=== PATIENT | female | born 1970 | race Hispanic/Latino ===

== ENCOUNTER 2024-10-06 22:47 | Emergency (ER) | payer SELFPAY ==
--- OUTSIDE RECORDS SUMMARY | 2024-10-06 22:52 | XMS REPORT | Continuity of Care Document ---
Author Name Unknown Address [address] [facility] [place] [address] [facility] Address [address] [facility] [place] [address] Care Team Providers Care 911 Telecommunicator Name Role Phone LUCIANO Ma [facility] Unavailable TORSTEN MALONE Attending Clinician Unavailable PETER ARCHIBALD Attending Clinician Unavailable Peter Archibald MD Attending Clinician [phone] Doctor Unassigned, Loyal Attending Clinician U ISRAEL Barraza Attending Clinician Unavaila MANUEL Salvador Attending Clinician Unavailable Manuel Lopez MD Attending Clinician [phone] Moody Arboleda MD Attending Clinician [phone] GIORGI BARRIOS Attending Clinician Unavaila Giorgi Gallegos Attending Clinician [phone] Merlene Clinton LVN Attending Clinician [phone] Isha Reyna Attending Clinician [phone] ANDRIY OCONNOR Attending Clinician Unavailable Andriy Kaur Attending Clinician [phone] Torsten Ross Attending Clinician [phone] DANG RODRÍGUEZ Attending Clinician Unavailable PAOLA CASEY Attending Clinician Unavailable Paola Casey DO Attending Clinician [phone] Jose PARKSSWLuna Attending Clinician [phone] Mina Loving MD Attending Clinician [phone] MINA LOVING Attending Clinician Unavailable Lien Haq DO Attending Clinician + [phone] Jose Antonio Trammell MD Attending Clinician [phone] JOSE ANTONIO TRAMMELL Attending Clinician Unavailable Macario SEAY, Alaina Walsh Attending Clinician UnavailPETER Kennedy Admitting Clinician Unavailable Peter Archibald MD Admitting Clinician [phone] MAUNEL LOPEZ Admitting Clinician Unavailable ANDRIY OCONNOR Admitting Clinician Unavailable PAOLA CASEY Admitting Clinician Unavailable Payers Payer Name Policy Type Policy Number Effective Date Expirati on Date Source MEDICAID ALI[place] PENDING PENDING 2021 00:00:00 Problems Condition Name Condition Details Condition Category Status Onset Date Resolution Date Last Treatment Date Treating Clinician Comments Source Renal stones Renal stones Disease Active 2021-05 00:00: 00 Overview: Formattin g of this note might be different from the original. 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 [facility] Allergies, Adverse Reactions, Alerts Allergy Name Allergy Type Status Severity Reaction(s) Onset Date Inactive Date Treating Clinician Comments Source Morphine Propensi ty to adverse reaction s Active Dizziness 06-17 00:00: 00 [facility] MORPHINE DRUG INGREDI Active Dizziness 06-17 00:00: 00 [facility] Social History Social Habit Start Date Stop Date Quantity Comments Source History of tobacco use Passive smoker [facility] Exposure to SARS-CoV-2 (event) 2022-05-23 00:00:00 2022-06-02 09:22:00 Not sure [facility] Tobacco use and exposure 2022-01-21 00:00:00 2022-01-21 00:00:00 Smokeless tobacco non-user [facility] Tobacco Comment 2022-01-21 00:00:00 2022-01-21 00:00:00 Non smoker [facility] Sex Ass[birth year] At 1970 00:00:00 1970 00:00:00 [facility] Smoking Status Start Date Stop Date Source Never smoked tobacco [facility] Medications Ordered Medication Name Filled Medication Name Start Date Stop Date Current Medication? Ordering Clinician Indication Dosage Frequency Signature (SIG) Comments Components Source lidocaine (XYLOCAINE) 2 % jelly URO-JET 11 mL 06-02 19:00: 00 06-02 17:46 :00 No [id number] 11mL [facility] lactated ringers IV infusion 1,000 mL 2021-05 15:30: 00 Yes 1000mL at 75 mL/hr, 1,000 mL, IV Infusion, CONTINUOUS , Starting on Francy 05/08/22 at 0930, Until Discontinu ed, Routine, PACU [facility] HYDROcodone -acetaminop hen (NORCO 5) 5-325 mg tablet 1 tablet 2021-05 15:30: 00 05-08 16:00 :00 No 1{tbl} 1 tablet, Oral, ONCE, 1 dose, On Francy 05/08/22 at 0930, Routine, PACU [facility] HYDROmorphO ne (DILAUDID) injection 0.2 mg 2021-05 15:18: 54 Yes .2mg 0.2 mg, Slow IV Push, Q5MIN PRN, 10 doses, Starting on Francy 05/08/22 at 0918, Until Discontinu ed, Routine, Pain (scale 7-10), PACU
Us e approved by (Faculty): PACU USE -ANESTHESI A SERVICE-HY DROMORPHON E INJECTIONS [facility] FENTanyl PF (SUBLIMAZE (PF)) injection 25 mcg 2021-05 15:18: 54 Yes 25ug 25 mcg, Slow IV Push, Q5MIN PRN, 4 doses, Starting on Francy 05/08/22 at 0918, Until Discontinu ed, Routine, Pain (scale 4-6), PACU [facility] ondansetron (ZOFRAN (PF)) injection 4 mg 2021-05 15:18: 54 05-08 16:51 :00 No 4mg 4 mg, Slow IV Push, PRN, 1 dose, Starting on Francy 05/08/22 at 0918, Until Discontinu ed, Routine, Nausea and Vomiting (N/V), PACU [facility] iohexoL (OMNIPAQUE 300-50 mL)) injection 2021-05 15:00: 00 05-08 15:39 :04 No PRN, Starting on Francy 05/08/22 at 0900, Until Francy 05/08/22 at 0939, Routine, Intra-op [facility] acetaminoph en 325 mg tablet 2021-05 00:00: 00 06-02 00:00 :00 No [id number] 650mg Take 2 tablets by mouth every 6 (six) hours as needed for Pain (scale 1-3) or Alternate with ibuprofen for pain scale 4-6. [facility] ibuprofen 600 mg tablet 2021-05 00:00: 00 06-02 00:00 :00 No [id number] 600mg Take 1 tablet by mouth every 6 (six) hours as needed for Pain (scale 4-6). [facility] sulfamethox azole-trime thoprim (BACTRIM DS) 800-160 mg per tablet 2021-05 00:00: 00 06-02 00:00 :00 No [id number] 1{tbl} Take 1 tablet by mouth 2 (two) times daily. [facility] tamsulosin 0.4 mg 24 hr capsule 2021-05 00:00: 00 06-02 00:00 :00 No [id number] .4mg Take 1 capsule by mouth daily. [facility] tc 99m-mertiat cholo (TECHNESCAN MAG3) injection 9.4 millicurie 02-14 16:30: 00 02-14 16:20 :00 No [id number] 9.4mCi 9.4 millicurie , Intravenou s, ONCE, 1 dose, On Thu02/14/22 at 1130, Routine [facility] sennosides 8.6 mg tablet 01-25 00:00: 00 02-25 04:59 :00 No [id number] 8.6mg Take 1 tablet by mouth daily for 30 days. [facility] ondansetron 4 mg disintegrat ing tablet 01-24 00:00: 06-02 00:00 :00 No [id number] 4mg Take 1 tablet by mouth every 8 (eight) hours as needed for Nausea and Vomiting (N/V) for up to 30 doses. [facility] acetaminoph en 325 mg tablet 01-24 00:00: 00 05-08 00:00 :00 No [id number] 650mg Take 2 tablets by mouth every 6 (six) hours. [facility] sulfamethox azole-trime thoprim (BACTRIM DS) 800-160 mg per tablet 01-24 00:00: 00 02-06 04:59 :00 No [id number] 1{tbl} Take 1 tablet by mouth 2 (two) times daily for 12 days. [facility] gabapentin 300 mg capsule 01-24 00:00: 00 02-04 04:59 :00 No [id number] 300mg Take 1 capsule by mouth 3 (three) times daily for 10 days. [facility] Dose Unknown 01-07 00:00: 00 No TAKE 1 TABLET DAILY. 01-07 00:00: 00 No TAKE 1 TABLET DAILY. 12-31 00:00: 00 No 137 TAKE 1 TABLET DAILY. 12-31 00:00: 00 No 137 Dose Unknown 12-23 00:00: 00 No Dose Unknown 12-23 00:00: 00 No Dose Unknown 12-23 00:00: 00 No Dose Unknown 12-23 00:00: 00 No Dose Unknown 12-23 00:00: 00 No TAKE 1 TABLET DAILY. 12-23 00:00: 00 No 300 Dose Unknown 12-23 00:00: 00 No Dose Unknown 12-23 00:00: 00 No Dose Unknown 12-23 00:00: 00 No Dose Unknown 12-23 00:00: 00 No Dose Unknown 12-23 00:00: 00 No TAKE 1 TABLET DAILY. 12-23 00:00: 00 No 300 Actos 45 mg tablet 10-22 00:00: 00 No 1mg levothyroxi ne 137 mcg tablet 10-22 00:00: 00 No 1mcg Lovaza 1 gram capsule 10-22 00:00: 00 No 2gram Actos 45 mg tablet 10-22 00:00: 00 No 1mg levothyroxi ne 137 mcg tablet 10-22 00:00: 00 No 1mcg Lovaza 1 gram capsule 10-22 00:00: 00 No 2gram Actos 30 mg tablet 10-18 00:00: 00 No 1mg lisinopril 5 mg tablet 10-18 00:00: 00 No 1mg metformin ER 1,000 mg 24 hr tablet,exte nded release 10-18 00:00: 00 No 1mg glipizide ER 10 mg tablet, extended release 24 hr 10-18 00:00: 00 No 1mg atorvastati n 80 mg tablet 10-18 00:00: 00 No 1mg levothyroxi ne 125 mcg tablet 10-18 00:00: 00 No 1mcg Actos 30 mg tablet 10-18 00:00: 00 No 1mg lisinopril 5 mg tablet 10-18 00:00: 00 No 1mg metformin ER 1,000 mg 24 hr tablet,exte nded release 10-18 00:00: 00 No 1mg glipizide ER 10 mg tablet, extended release 24 hr 10-18 00:00: 00 No 1mg atorvastati n 80 mg tablet 2022-0 5-27 00:00: 00 No 1mg levothyroxi ne 125 mcg tablet 2022-0 5-27 00:00: 00 No 1mcg Dose Unknown 2022-0 4-06 00:00: 00 No Dose Unknown 2022-0 4-06 00:00: 00 No Dose Unknown 2022-0 4-06 00:00: 00 No Dose Unknown 2022-0 4-06 00:00: 00 No Dose Unknown 2022-0 4-06 00:00: 00 No Dose Unknown 2022-0 4-06 00:00: 00 No Dose Unknown 2022-0 4-06 00:00: 00 No Dose Unknown 2022-0 4-06 00:00: 00 No Dose Unknown 2022-0 4-06 00:00: 00 No Dose Unknown 2022-0 4-06 00:00: 00 No Dose Unknown 2022-0 4-06 00:00: 00 No Dose Unknown 2022-0 4-06 00:00: 00 No Dose Unknown 2022-0 4-06 00:00: 00 No Dose Unknown 2022-0 4-06 00:00: 00 No Dose Unknown 2022-0 4-05 00:00: 00 No Dose Unknown 2022-0 4-05 00:00: 00 No Dose Unknown 2022-0 4-05 00:00: 00 No Dose Unknown 2022-0 4-05 00:00: 00 No Dose Unknown 2022-0 4-05 00:00: 00 No Dose Unknown 2022-0 4-05 00:00: 00 No Dose Unknown 2022-0 4-05 00:00: 00 No Dose Unknown 2022-0 4-05 00:00: 00 No Dose Unknown 2022-0 4-05 00:00: 00 No Dose Unknown 2022-0 4-05 00:00: 00 No Dose Unknown 2022-0 4-05 00:00: 00 No Dose Unknown 2022-0 4-05 00:00: 00 No Dose Unknown 2022-0 4-05 00:00: 00 No Dose Unknown 2022-0 4-05 00:00: 00 No levothyroxi ne 125 mcg tablet 2022-0 2-02 00:00: 00 No 1mcg levothyroxi ne 125 mcg tablet 2-0 2-02 00:00: 00 No 1mcg fenofibrate nanocrystal lized 145 mg tablet 2020-05 00:00: 00 No 1mg lisinopril 2.5 mg tablet 2020-05 00:00: 00 No 1mg levothyroxi ne 125 mcg tablet 2020-05 00:00: 00 No 1mcg fenofibrate nanocrystal lized 145 mg tablet 2020-05 00:00: 00 No 1mg lisinopril 2.5 mg tablet 2020-05 00:00: 00 No 1mg levothyroxi ne 125 mcg tablet 2020-05 00:00: 00 No 1mcg Actos 30 mg tablet 2020-05 00:00: 00 No 1mg allopurinol 300 mg tablet 2020-05 00:00: 00 No 1mg metformin ER 1,000 mg 24 hr tablet,exte nded release (gastric) 2020-05 00:00: 00 No 1mg Actos 30 mg tablet 2020-05 00:00: 00 No 1mg allopurinol 300 mg tablet 2020-05 00:00: 00 No 1mg metformin ER 1,000 mg 24 hr tablet,exte nded release (gastric) 2020-05 00:00: 00 No 1mg glipizide ER 10 mg tablet, extended release 24 hr 2020-05 00:00: 00 No 1mg atorvastati n 40 mg tablet 2020-05 00:00: 00 No 2mg glipizide ER 10 mg tablet, extended release 24 hr 2020-05 00:00: 00 No 1mg levothyroxi ne 112 mcg tablet 2020-05 00:00: 00 No 1mcg Macrobid 100 mg capsule 2020-05 00:00: 00 No 1mg atorvastati n 40 mg tablet 2020-05 00:00: 00 No 2mg levothyroxi ne 112 mcg tablet 2020-05 00:00: 00 No 1mcg Macrobid 100 mg capsule 2020-05 00:00: 00 No 1mg bromphenira mine-pseudo ephedrine-D M (BROMFED DM) 2-30-10 mg/5 mL syrup 7- 00:00: 00 Yes [id number] 5mL Take 5 mL by mouth 4 (four) times daily as needed for Congestion /Allergies . [facility] tamsulosin 0.4 mg capsule 11-28 00:00: 00 No 1mg tamsulosin 0.4 mg capsule 11-28 00:00: 00 No 1mg cephALEXin (KEFLEX) 500 mg capsule - 00:00: 00 01-24 00:00 :00 No [id number] 500mg Take 1 capsule by mouth 4 (four) times daily. [facility] ibuprofen 600 mg tablet 08-07 00:00: 00 01-24 00:00 :00 No [id number] 600mg Take 1 tablet by mouth every 8 (eight) hours as needed for Pain (scale 4-6). [facility] allopurinol 300 mg tablet 07-06 00:00: 00 No 1mg Actos 30 mg tablet 07-06 00:00: 00 No 1mg metformin ER 1,000 mg 24 hr tablet,exte nded release (gastric) 07-06 00:00: 00 No 1mg glipizide ER 10 mg tablet, extended release 24 hr 07-06 00:00: 00 No 1mg ibuprofen 800 mg tablet - 00:00: 00 No 1mg atorvastati n 40 mg tablet - 00:00: 00 No 2mg levothyroxi ne 112 mcg tablet - 00:00: 00 No 1mcg Macrobid 100 mg capsule - 00:00: 00 No 1mg allopurinol 300 mg tablet - 00:00: 00 No 1mg Actos 30 mg tablet - 00:00: 00 No 1mg metformin ER 1,000 mg 24 hr tablet,exte nded release (gastric) - 00:00: 00 No 1mg glipizide ER 10 mg tablet, extended release 24 hr 07-06 00:00: 00 No 1mg ibuprofen 800 mg tablet 07-06 00:00: 00 No 1mg atorvastati n 40 mg tablet 07-06 00:00: 00 No 2mg levothyroxi ne 112 mcg tablet 07-06 00:00: 00 No 1mcg Macrobid 100 mg capsule 07-06 00:00: 00 No 1mg ibuprofen 600 mg tablet 06-18 00:00: 00 01-24 00:00 :00 No [id number] 600mg Take 1 tablet by mouth every 6 (six) hours as needed for Pain (scale 4-6). [facility] Augmentin 875 mg-125 mg tablet 2019-05 00:00: 00 No 1mg Augmentin 875 mg-125 mg tablet 2019-05 00:00: 00 No 1mg Actos 15 mg tablet 2019-05 00:00: 00 No 1mg allopurinol 300 mg tablet 2019-05 00:00: 00 No 1mg Tricor 48 mg tablet 2019-05 00:00: 00 No 1mg Bactrim DS 800 mg-160 mg tablet 2019-05 00:00: 00 No 1mg glipizide ER 10 mg tablet, extended release 24 hr 2019-05 00:00: 00 No 1mg metformin ER 1,000 mg 24 hr tablet,exte nded release (gastric) 2019-05 00:00: 00 No 1mg atorvastati n 40 mg tablet 2019-05 00:00: 00 No 2mg Actos 15 mg tablet 2019-05 00:00: 00 No 1mg allopurinol 300 mg tablet 2019-05 00:00: 00 No 1mg Tricor 48 mg tablet 2019-05 00:00: 00 No 1mg Bactrim DS 800 mg-160 mg tablet 2019-05 00:00: 00 No 1mg glipizide ER 10 mg tablet, extended release 24 hr 2019-05 00:00: 00 No 1mg metformin ER 1,000 mg 24 hr tablet,exte nded release (gastric) 2019-05 00:00: 00 No 1mg atorvastati n 40 mg tablet 2019-05 00:00: 00 No 2mg levothyroxi ne 112 mcg tablet 01-11 00:00: 00 No 1mcg levothyroxi ne 112 mcg tablet 01-11 00:00: 00 No 1mcg atorvastati n 40 mg tablet 01-06 00:00: 00 No 1mg allopurinol 300 mg tablet 15 00:00: 00 No 1mg Actos 15 mg tablet 15 00:00: 00 No 1mg glipizide ER 10 mg tablet, extended release 24 hr 01-06 00:00: 00 No 1mg metformin ER 1,000 mg 24 hr tablet,exte nded release (gastric) 01-06 00:00: 00 No 1mg hydroxyzine HCl 25 mg tablet 15 00:00: 00 No 12mg levothyroxi ne 100 mcg tablet 15 00:00: 00 No 1mcg Macrobid 100 mg capsule 15 00:00: 00 No 1mg atorvastati n 40 mg tablet 01-06 00:00: 00 No 1mg allopurinol 300 mg tablet 15 00:00: 00 No 1mg Actos 15 mg tablet 15 00:00: 00 No 1mg glipizide ER 10 mg tablet, extended release 24 hr 15 00:00: 00 No 1mg metformin ER 1,000 mg 24 hr tablet,exte nded release (gastric) 15 00:00: 00 No 1mg hydroxyzine HCl 25 mg tablet 15 00:00: 00 No 12mg levothyroxi ne 100 mcg tablet 15 00:00: 00 No 1mcg Macrobid 100 mg capsule 15 00:00: 00 No 1mg hydroxyzine HCl 50 mg tablet 5-12 00:00: 00 No 1mg hydroxyzine HCl 50 mg tablet 10-03 00:00: 00 No 1mg glipizide ER 10 mg tablet, extended release 24 hr 406 00:00: 00 No 1mg glipizide ER 10 mg tablet, extended release 24 hr 406 00:00: 00 No 1mg hydroxyzine HCl 50 mg tablet 4- 00:00: 00 No 1mg hydroxyzine HCl 50 mg tablet 08-23 00:00: 00 No 1mg atorvastati n 40 mg tablet 2- 00:00: 00 No 1mg atorvastati n 40 mg tablet 07-20 00:00: 00 No 1mg allopurinol 300 mg tablet 07-13 00:00: 00 No 1mg metformin ER 1,000 mg 24 hr tablet,exte nded release (gastric) - 00:00: 00 No 1mg glipizide ER 5 mg tablet, extended release 24 hr 07-13 00:00: 00 No 1mg simvastatin 40 mg tablet 07-13 00:00: 00 No 1mg levothyroxi ne 100 mcg tablet 07-13 00:00: 00 No 1mcg allopurinol 300 mg tablet 07-13 00:00: 00 No 1mg metformin ER 1,000 mg 24 hr tablet,exte nded release (gastric) 07-13 00:00: 00 No 1mg glipizide ER 5 mg tablet, extended release 24 hr 07-13 00:00: 00 No 1mg simvastatin 40 mg tablet 07-13 00:00: 00 No 1mg levothyroxi ne 100 mcg tablet 07-13 00:00: 00 No 1mcg levothyroxi ne 100 mcg tablet 10-09 00:00: 00 No 1mcg levothyroxi ne 100 mcg tablet 10-09 00:00: 00 No 1mcg lisinopril 2.5 mg tablet 10-08 00:00: 00 No 1mg allopurinol 300 mg tablet 10-08 00:00: 00 No 1mg glipizide 5 mg tablet 10-08 00:00: 00 No 1mg metformin 500 mg tablet 10-08 00:00: 00 No 1mg simvastatin 40 mg tablet 10-08 00:00: 00 No 1mg gabapentin 100 mg capsule 10-08 00:00: 00 No 1mg lisinopril 2.5 mg tablet 10-08 00:00: 00 No 1mg allopurinol 300 mg tablet 10-08 00:00: 00 No 1mg glipizide 5 mg tablet 10-08 00:00: 00 No 1mg metformin 500 mg tablet 10-08 00:00: 00 No 1mg simvastatin 40 mg tablet 10-08 00:00: 00 No 1mg gabapentin 100 mg capsule 10-08 00:00: 00 No 1mg levothyroxi ne 125 mcg tablet 07-14 00:00: 00 No 1mcg lisinopril 2.5 mg tablet 07-14 00:00: 00 No 1mg glipizide 5 mg tablet 07-14 00:00: 00 No 1mg metformin 500 mg tablet 07-14 00:00: 00 No 1mg simvastatin 40 mg tablet 07-14 00:00: 00 No 1mg levothyroxi ne 125 mcg tablet 07-14 00:00: 00 No 1mcg lisinopril 2.5 mg tablet 07-14 00:00: 00 No 1mg glipizide 5 mg tablet 07-14 00:00: 00 No 1mg metformin 500 mg tablet 07-14 00:00: 00 No 1mg simvastatin 40 mg tablet 07-14 00:00: 00 No 1mg allopurinol 300 mg tablet 07-13 00:00: 00 No 1mg levothyroxi ne 125 mcg tablet 07-13 00:00: 00 No 1mcg allopurinol 300 mg tablet 07-13 00:00: 00 No 1mg levothyroxi ne 125 mcg tablet 07-13 00:00: 00 No 1mcg nystatin (MYCOSTATIN ) 100,000 unit/gram ointment 02-13 00:00: 00 Yes Apply to affected area(s) 3 (three) times daily. [facility] Vital Signs Vital Name Observation Time Observation Value Comments S ron Systolic blood pressure 2022-06-02 15:37:00 116 mm[Hg] [facility] Diastolic blood pressure 2022-06-02 15:37:00 76 mm[Hg] [facility] Heart rate 2022-06-02 15:37:00 68 /min [facility] Body temperature 2022-06-02 15:37:00 36.67 [place] [facility] Respiratory rate 2022-06-02 15:37:00 16 /min [facility] Body height 2022-06-02 15:37:00 160 cm [facility] Body weight 2022-06-02 15:37:00 60.328 kg [facility] BMI 2022-06-02 15:37:00 23.56 kg/m2 [facility] Oxygen saturation in Arterial blood by Pulse oximetry 2022-06-02 15:37:00 99 /min [facility] Systolic blood pressure 2022-05-08 16:30:00 124 mm[Hg] [facility] Diastolic blood pressure 2022-05-08 16:30:00 97 mm[Hg] [facility] Respiratory rate 2022-05-08 16:30:00 14 /min [facility] Oxygen saturation in Arterial blood by Pulse oximetry 2022-05-08 16:30:00 98 /min [facility] Body temperature 2022-05-08 15:30:00 36.06 [place] [facility] Heart rate 2022-05-08 11:24:00 73 /min [facility] Body height 2022-05-08 11:24:00 160 cm [facility] Body weight 2022-05-08 11:24:00 61.8 kg [facility] BMI 2022-05-08 11:24:00 24.13 kg/m2 [facility] Systolic blood pressure 2022-05-08 11:24:00 125 mm[Hg] [facility] Diastolic blood pressure 2022-05-08 11:24:00 73 mm[Hg] [facility] Heart rate 2022-05-08 11:24:00 73 /min [facility] Body temperature 2022-05-08 11:24:00 36.28 [place] [facility] Respiratory rate 2022-05-08 11:24:00 18 /min [facility] Body height 2022-05-08 11:24:00 160 cm [facility] Body weight 2022-05-08 11:24:00 61.8 kg [facility] BMI 2022-05-08 11:24:00 24.13 kg/m2 [facility] Oxygen saturation in Arterial blood by Pulse oximetry 2022-05-08 11:24:00 97 /min [facility] Systolic blood pressure 2022-04-21 21:00:00 125 mm[Hg] [facility] Diastolic blood pressure 2022-04-21 21:00:00 88 mm[Hg] [facility] Heart rate 2022-04-21 21:00:00 97 /min [facility] Respiratory rate 2022-04-21 21:00:00 17 /min [facility] Oxygen saturation in Arterial blood by Pulse oximetry 2022-04-21 21:00:00 100 /min [facility] Body temperature 2022-04-21 17:00:00 36.56 [place] [facility] Body weight 2022-04-21 17:00:00 58.968 kg [facility] BMI 2022-04-21 17:00:00 21.63 kg/m2 [facility] Systolic blood pressure 2022-03-31 19:00:00 121 mm[Hg] [facility] Diastolic blood pressure 2022-03-31 19:00:00 74 mm[Hg] [facility] Heart rate 2022-03-31 19:00:00 74 /min [facility] Body temperature 2022-03-31 19:00:00 36.67 [place] [facility] Respiratory rate 2022-03-31 19:00:00 18 /min [facility] Oxygen saturation in Arterial blood by Pulse oximetry 2022-03-31 19:00:00 98 /min [facility] Body weight 2022-03-31 17:14:00 58.968 kg [facility] BMI 2022-03-31 17:14:00 21.63 kg/m2 [facility] BP Systolic 2022-01-31 11:20:00 129 mm[Hg] BP Diastolic 2022-01-31 11:20:00 80 mm[Hg] Weight Measured 2022-01-31 11:20:00 130.40 pounds Height Measured 2022-01-31 11:20:00 62.50 inches Body Temperature 2022-01-31 11:20:00 98.20 degrees Heart Rate 2022-01-31 11:20:00 98.20 /min Respiratory Rate 2022-01-31 11:20:00 Systolic blood pressure 2022-01-25 13:00:00 116 mm[Hg] [facility] Diastolic blood pressure 2022-01-25 13:00:00 70 mm[Hg] [facility] Heart rate 2022-01-25 13:00:00 55 /min [facility] Body temperature 2022-01-25 13:00:00 36.44 [place] [facility] Respiratory rate 2022-01-25 13:00:00 20 /min [facility] Oxygen saturation in Arterial blood by Pulse oximetry 2022-01-25 13:00:00 98 /min [facility] Body height 2022-01-23 18:31:00 165.1 cm [facility] Body weight 2022-01-23 18:31:00 58.968 kg [facility] BMI 2022-01-23 18:31:00 21.63 kg/m2 [facility] BP Systolic 2021-12-23 08:27:00 125 mm[Hg] BP Diastolic 2021-12-23 08:27:00 82 mm[Hg] Weight Measured 2021-12-23 08:27:00 131.00 pounds Height Measured 2021-12-23 08:27:00 62.50 inches Body Temperature 2021-12-23 08:27:00 98.00 degrees Heart Rate 2021-12-23 08:27:00 74.00 /min Respiratory Rate 2021-12-23 08:27:00 16.00 /min BP Systolic 2021-10-18 11:02:00 143 mm[Hg] BP Diastolic 2021-10-18 11:02:00 91 mm[Hg] Weight Measured 2021-10-18 11:02:00 132.20 pounds Height Measured 2021-10-18 11:02:00 62.50 inches Body Temperature 2021-10-18 11:02:00 98.40 degrees Heart Rate 2021-10-18 11:02:00 72.00 /min Respiratory Rate 2021-10-18 11:02:00 16.00 /min BP Systolic 2021-03-26 09:12:00 116 mm[Hg] BP Diastolic 2021-03-26 09:12:00 74 mm[Hg] Weight Measured 2021-03-26 09:12:00 137.00 pounds Height Measured 2021-03-26 09:12:00 62.50 inches Body Temperature 2021-03-26 09:12:00 98.40 degrees Heart Rate 2021-03-26 09:12:00 80.00 /min Respiratory Rate 2021-03-26 09:12:00 21.00 /min BP Systolic 2020-11-28 11:49:00 143 mm[Hg] BP Diastolic 2020-11-28 11:49:00 85 mm[Hg] Weight Measured 2020-11-28 11:49:00 137.80 pounds Height Measured 2020-11-28 11:49:00 62.50 inches Body Temperature 2020-11-28 11:49:00 98.30 degrees Heart Rate 2020-11-28 11:49:00 86.00 /min Respiratory Rate 2020-11-28 11:49:00 16.00 /min BP Systolic 2020-07-06 11:09:00 113 mm[Hg] BP Diastolic 2020-07-06 11:09:00 72 mm[Hg] Weight Measured 2020-07-06 11:09:00 140.20 pounds Height Measured 2020-07-06 11:09:00 62.50 inches Body Temperature 2020-07-06 11:09:00 98.70 degrees Heart Rate 2020-07-06 11:09:00 85.00 /min Respiratory Rate 2020-07-06 11:09:00 18.00 /min BP Systolic 2020-04-17 11:28:00 130 mm[Hg] BP Diastolic 2020-04-17 11:28:00 84 mm[Hg] Weight Measured 2020-04-17 11:28:00 140.00 pounds Height Measured 2020-04-17 11:28:00 62.50 inches Body Temperature 2020-04-17 11:28:00 98.50 degrees Heart Rate 2020-04-17 11:28:00 88.00 /min Respiratory Rate 2020-04-17 11:28:00 17.00 /min BP Systolic 2020-01-07 10:26:00 118 mm[Hg] BP Diastolic 2020-01-07 10:26:00 73 mm[Hg] Weight Measured 2020-01-07 10:26:00 140.00 pounds Height Measured 2020-01-07 10:26:00 62.50 inches Body Temperature 2020-01-07 10:26:00 96.90 degrees Heart Rate 2020-01-07 10:26:00 82.00 /min Respiratory Rate 2020-01-07 10:26:00 16.00 /min BP Systolic 2019-10-04 14:54:00 117 mm[Hg] BP Diastolic 2019-10-04 14:54:00 81 mm[Hg] Weight Measured 2019-10-04 14:54:00 140.00 pounds Height Measured 2019-10-04 14:54:00 62.50 inches Body Temperature 2019-10-04 14:54:00 98.10 degrees Heart Rate 2019-10-04 14:54:00 90.00 /min Respiratory Rate 2019-10-04 14:54:00 16.00 /min BP Systolic 2019-08-24 10:18:00 118 mm[Hg] BP Diastolic 2019-08-24 10:18:00 86 mm[Hg] Weight Measured 2019-08-24 10:18:00 141.40 pounds Height Measured 2019-08-24 10:18:00 62.50 inches Body Temperature 2019-08-24 10:18:00 98.10 degrees Heart Rate 2019-08-24 10:18:00 77.00 /min Respiratory Rate 2019-08-24 10:18:00 16.00 /min BP Systolic 2019-07-13 10:07:00 115 mm[Hg] BP Diastolic 2019-07-13 10:07:00 80 mm[Hg] Weight Measured 2019-07-13 10:07:00 141.60 pounds Height Measured 2019-07-13 10:07:00 62.50 inches Body Temperature 2019-07-13 10:07:00 98.00 degrees Heart Rate 2019-07-13 10:07:00 81.00 /min Respiratory Rate 2019-07-13 10:07:00 17.00 /min Procedures Procedure Date / Time Performed Performing Clinician Source DISCLOSURE AND CONSENT, MEDICAL AND SURGICAL PROCEDURES 2022-06-02 06:01:00 Doctor Unassigned, Loyal [facility] [place] TIME OR (NON-REPORTABLE) 2022-05-08 15:14:00 David Wyatt [facility] TIME OR (NON-REPORTABLE) 2022-05-08 15:14:00 David Wyatt [facility] URINE CULTURE 2022-05-08 14:40:00 Peter Archibald [facility] URETEROSCOPIC STONE MANIPULATION 2022-05-08 13:05:00 Peter Archibald [facility] CONSENT/REFUSAL FOR DIAGNOSIS AND TREATMENT 2022-05-08 11:11:41 Doctor Unassigned, [facility] CONSENT/REFUSAL FOR DIAGNOSIS AND TREATMENT 2022-05-08 11:11:41 Doctor Unassigned, [facility]oyal [facility] ASSIGNMENT OF BENEFITS 2022-05-08 11:10:51 Docto r Unassigned, Loyal [facility] ASSIGNMENT OF BENEFITS 2022-05-08 11:10:51 Docto r Unassigned, Loyal [facility] CT ABDOMEN PELVIS WO CONTRAST 2022-04-21 19:20:00 Manuel Lopez [facility] COMP. METABOLIC PANEL (07505) 2022-04-21 18:10:00 Manuel Lopez [facility] CBC WITH DIFF 2022-04-21 18:10:00 Manuel Lopez Uni [facility] CONSENT/REFUSAL FOR DIAGNOSIS AND TREATMENT 2022-04-21 17:00:43 Doctor Unassigned, [facility] EMERGENCY SERVICES AGREEMENTS AND AUTHORIZATIONS 2022-04-21 06:01:00 Doctor Unassigned, [facility] EMERGENCY SERVICES AGREEMENTS AND AUTHORIZATIONS 2022-04-21 06:01:00 Doctor Unassigned, [facility] CONSENT/REFUSAL FOR DIAGNOSIS AND TREATMENT 2022-03-31 17:13:14 Doctor Unassigned, [facility] NM RENAL FLOW FUNCTION WITHOUT PHARMACOLOGICAL INTERVENTION 2022-02-14 17:10:00 Bishnu James [facility] POCT GLUCOSE (AUTOMATED) 2022-01-25 01:31:00 [facility]SE ([facility]OMATED) 2022-01-24 22:17:00 [facility] URINE CULTURE 2022-01-24 13:55:00 Valarie Goldman [facility] POCT GLUCOSE (AUTOMATED) 2022-01-24 10:46:00 [facility] POCT GLUCOSE (AUTOMATED) 2022-01-24 04:34:00 [facility] POCT GLUCOSE (AUTOMATED) 2022-01-23 22:44:00 [facility] BASIC METABOLIC PANEL (NA, K, CL, CO2, GLUCOSE, BUN, CREATININE, CA) 2022-01-23 16:14:00 Bishnu James [facility] CBC WITH DIFF 2022-01-23 16:13:00 Bishnu James [facility] POCT GLUCOSE (AUTOMATED) 2022-01-23 13:10:00 [facility] CBC WITH DIFF 2022-01-22 20:47:00 David Wyatt [facility] PROTHROMBIN TIME / INR 2022-01-22 05:42:00 Kolby Arboleda [facility] COVID-19 (ID NOW RAPID TESTING) 2022-01-21 23:37:00 Isha Mohamud [facility] LAB ONLY COVID INTERPRETATION 2022-01-21 23:37:00 Isha Mohamud [facility] URINE CULTURE 2022-01-21 21:48:00 Isha Mohamud [facility] CT ABDOMEN PELVIS WO CONTRAST 2022-01-21 20:48:34 Isha Mohamud [facility] URINALYSIS 2022-01-21 20:37:00 Isha Mohamud [facility] HB ECG ROUTINE & RHYTHM STRIP 2022-01-21 20:29:33 Isha Mohamud [facility] CBC WITH DIFF 2022-01-21 20:26:00 Isha Mohmaud [facility] COMP. METABOLIC PANEL (15170) 2022-01-21 20:26:00 Isha Mohamud [facility] CONSENT/REFUSAL FOR DIAGNOSIS AND TREATMENT 2022-01-21 20:03:01 Doctor Unassigned, [facility] HOSPITAL ADMISSION 2022-01-21 05:01:00 Doctor Un assigned, [facility] Plan of Care Planned Activity Planned Date Details Comments Source Goal Plan of Care Note [code = 47280-7] Goal Plan of Care Note [code = 88019-7] Goal Plan of Care Note [code = 89237-3] Goal Plan of Care Note [code = 88622-5] Goal Plan of Care Note [code = 60077-5] Goal Plan of Care Note [code = 14296-5] Goal Plan of Care Note [code = 54990-1] Goal Plan of Care Note [code = 40707-2] Goal Plan of Care Note [code = 41434-4] Goal Plan of Care Note [code = 72946-4] Goal Plan of Care Note [code = 91784-8] Goal Plan of Care Note [code = 72138-9] Goal Plan of Care Note [code = 36549-9] Goal Plan of Care Note [code = 32759-2] Goal Plan of Care Note [code = 53794-8] Goal Plan of Care Note [code = 49706-4] Goal Plan of Care Note [code = 23724-1] Goal Plan of Care Note [code = 85862-7] Goal Plan of Care Note [code = 80013-7] Goal Plan of Care Note [code = 98446-8] Goal Plan of Care Note [code = 02313-9] Goal Plan of Care Note [code = 14957-9] Goal Plan of Care Note [code = 68351-9] Goal Plan of Care Note [code = 17459-5] Goal Plan of Care Note [code = 88018-1] Goal Plan of Care Note [code = 15591-8] Goal Plan of Care Note [code = 62238-8] Goal Plan of Care Note [code = 89340-5] Goal Plan of Care Note [code = 54274-9] Goal Plan of Care Note [code = 75598-6] Goal Plan of Care Note [code = 19636-9] Goal Plan of Care Note [code = 01814-1] Goal Plan of Care Note [code = 15563-4] Goal Plan of Care Note [code = 32138-7] Goal Plan of Care Note [code = 73075-7] Goal Plan of Care Note [code = 68289-5] Goal Plan of Care Note [code = 84729-1] Goal Plan of Care Note [code = 78290-7] Goal Plan of Care Note [code = 22069-5] Goal Plan of Care Note [code = 02925-8] Goal Plan of Care Note [code = 77374-8] Encounters Start Date/Time End Date/Time Encounter Type Admission Type Attending [facility] Facility Care Department Encounter ID Source 2021-06-17 18:05:41 Emergency TORSTEN MALONE [facility] [id number] [facility] 2024-08-10 09:19:59 2024-08-10 09:19:59 Outpatient SFA SFA [id number] Luciano Francesca Jason 2024-07-06 10:03:26 2024-07-06 10:03:26 Outpatient SFA SFA [id number] Luciano Francesca Jason 2024-04-25 10:30:21 2024-04-25 10:30:21 Outpatient SFA SFA [id number] Luciano Francesca Jason 2024-03-30 09:30:56 2024-03-30 09:30:56 Outpatient SFA SFA [id number] Luciano Francesca Jason 2024-03-01 10:23:47 2024-03-01 10:23:47 Outpatient SFA SFA [id number] Luciano Francesca Jason 2024-01-26 09:51:44 2024-01-26 09:51:44 Outpatient SFA SFA [id number] Luciano Gomez 2023-12-30 14:36:56 2023-12-30 14:36:56 Outpatient SFA SFA [id number] Luciano Gomez 2023-10-29 09:11:39 2023-10-29 09:11:39 Outpatient SFA SFA [id number] Luciano Gomez 2023-09-23 10:28:07 2023-09-23 10:28:07 Outpatient SFA SFA [id number] Luciano Gomez 2023-08-24 17:34:55 2023-08-24 17:34:55 Outpatient SFA SFA [id number] Luciano Gomez 2023-07-07 15:39:19 2023-07-07 15:39:19 Outpatient SFA SFA [id number] Luciano Gomez 2023-06-22 08:26:01 2023-06-22 08:26:01 Outpatient SFA SFA [id number] Luciano Gomez 2023-05-04 09:36:51 2023-05-04 09:36:51 Outpatient SFA SFA [id number] Luciano Gomez 2023-04-01 14:47:48 2023-04-01 14:47:48 Outpatient SFA SFA [id number] Luciano Gomez 2023-02-24 11:02:11 2023-02-24 11:02:11 Outpatient SFA SFA [id number] Luciano Gomez 2023-01-21 15:38:12 2023-01-21 15:38:12 Outpatient SFA SFA [id number] Luciano Ma Jason 2022-07-14 00:00:00 2022-07-14 00:00:00 Outpatient R PETER ARCHIBALD [facility] [id number] [facility] 2022-06-02 10:15:00 2022-06-02 10:15:00 Office Visit Peter Archibald [facility] 1.2.840.114 350.1.13.10 4.2.7.2.686 [id number] [facility] 2022-06-02 10:15:00 2022-06-02 10:13:31 Outpatient R PETER ARCHIBALD [facility] [id number] [facility] 2022-06-02 00:00:00 2022-06-02 00:00:00 Orders Only Doctor Unassigned, Loyal [facility] 1.2.840.114 350.1.13.10 4.2.7.2.686 [id number] [facility] 2022-05-08 05:10:00 2022-05-08 11:53:00 [facility] [id number] [facility] 2022-05-08 05:10:00 2022-05-08 11:53:00 Hospital Encounter [facility] 1.2.840.114 350.1.13.10 4.2.7.2.686 [id number] [facility] 2022-05-08 07:00:00 2022-05-08 09:03:00 Surgery [facility] 1.2.840.114 350.1.13.10 4.2.7.2.686 [id number] [facility] 2022-04-21 11:03:00 2022-04-21 15:56:00 Emergency X MANUEL LOPEZ [facility] ERT [id number] [facility] 2022-04-21 11:03:00 2022-04-21 15:56:00 Emergency Manuel Lopez [facility] 1.2.840.114 350.1.13.10 4.2.7.2.686 [id number] [facility] 2022-04-21 00:00:00 2022-04-21 00:00:00 Case Management Nkechi [facility] 1.2.840.114 350.1.13.10 4.2.7.2.686 [id number] [facility] 2022-03-31 11:16:00 2022-03-31 13:03:00 Emergency X GIOGRI BARRIOS [facility] ERT [id number] [facility] 2022-03-31 11:16:00 2022-03-31 13:03:00 Emergency Giorgi Barrios [facility] 1.2.840.114 350.1.13.10 4.2.7.2.686 [id number] [facility] 2022-02-14 10:56:16 2022-02-14 23:59:00 Outpatient R [facility]STELA [facility] [id number] [facility] 2022-02-14 10:56:16 2022-02-14 23:59:00 Hospital Encounter Peter Archibald [facility] 1.2.840.114 350.1.13.10 4.2.7.2.686 [id number] [facility] 2022-02-12 00:00:00 2022-02-12 00:00:00 Outpatient R CRISTELA [facility] [id number] [facility] 2022-01-31 00:00:00 2022-01-31 00:00:00 Outpatient Visit [id number] 2022-01-28 00:00:00 2022-01-28 00:00:00 Transition of Care Merlene Clinton 1.2.840.114 350.1.13.10 4.2.7.2.686 [id number] [facility] 2022-01-21 15:18:00 2022-01-25 11:00:00 Inpatient X PETER ARCHIBALD [facility] SUU [id number] [facility] 2022-01-21 15:18:00 2022-01-25 11:00:00 Hospital Encounter Isha Mohamud Joseph 1.2.840.1 [id number] 3.104.2.7 .3.014104 [id number] [facility] 2022-01-21 15:18:00 2022-01-25 11:00:00 Inpatient X PETER ARCHIBALD [facility] SUU [id number] [facility] 2022-01-21 00:00:00 2022-01-21 00:00:00 Travel 1.2.840.1 [id number] 3.104.2.7 .3.815514 .8 1.2.840.114 350.1.13.10 4.2.7.3.698 [id number] [facility] 2021-12-23 00:00:00 2021-12-23 00:00:00 Outpatient Visit [id number] 2021-10-08 13:44:00 2021-10-08 16:35:00 Emergency X ANDRIY OCONNOR [facility] ERT [id number] [facility] 2021-10-08 13:44:00 2021-10-08 16:35:00 Emergency Madeleine Oconnoranne [facility] 1.2840.114 350.1.13.10 4.2.7.2.686 [id number] [facility] 2021-10-08 00:00:00 2021-10-08 00:00:00 Orders Only Doctor Unassigned, Loyal [facility] 1.2.840.114 350.1.13.10 4.2.7.2.686 [id number] [facility] 2021-06-17 11:28:00 2021-06-17 12:43:00 Emergency X TORSTEN MALONE [facility] ERT [id number] [facility] 2021-06-17 11:28:00 2021-06-17 12:43:00 Emergency Torsten Malone [facility] 1.2.840.114 350.1.13.10 4.2.7.2.686 [id number] [facility] 2021-05-13 15:00:00 2021-05-13 15:00:00 Outpatient R DANG RODRÍGUEZ [facility] [id number] [facility] 2021-03-30 18:02:00 2021-03-30 20:39:00 Emergency X PAOLA CASEY [facility] ERT [id number] [facility] 2021-03-30 18:02:00 2021-03-30 20:39:00 Emergency Paola Casey [facility] 1.2840.114 350.1.13.10 4.2.7.2.686 [id number] [facility] 2021-03-30 00:00:00 2021-03-30 00:00:00 Orders Only Doctor Unassigned, Loyal [facility] 1.2840.114 350.1.13.10 4.2.7.2.686 [id number] [facility] 2021-01-08 00:00:00 2021-01-08 00:00:00 Patient Outreach Luna Garcia [facility] 1.2840.114 350.1.13.10 4.2.7.2.686 [id number] [facility] 2021-01-07 14:10:01 2021-01-07 15:11:04 Office Visit [facility] 1.2840.114 350.1.13.10 4.2.7.2.686 [id number] [facility] 2021-01-07 14:00:00 2021-01-07 15:11:04 Outpatient R MINA LOVING [facility] [id number] [facility] 2021-01-07 00:00:00 2021-01-07 00:00:00 Orders Only Doctor Unassigned, Loyal [facility] 1.2.840.114 350.1.13.10 4.2.7.2.686 [id number] [facility] 2020-12-17 12:49:00 2020-12-17 14:30:00 Emergency Lien Haq [facility] 1.2.840.114 350.1.13.10 4.2.7.2.686 [id number] [facility] 2020-12-17 12:28:00 2020-12-17 12:28:00 Emergency X [facility] ERT [id number] [facility] 2020-08-07 10:09:00 2020-08-07 13:37:00 Emergency JpJose Antonio [facility] 1.2.840.114 350.1.13.10 4.2.7.2.686 [id number] 2020-08-07 10:09:00 2020-08-07 13:37:00 Emergency pJ Jose Antonio [facility] 1.2.840.114 350.1.13.10 4.2.7.2.686 [id number] [facility] 2020-08-07 10:09:00 2020-08-07 10:09:00 Emergency [facility] [id number] [facility] 2020-08-07 00:00:00 2020-08-07 00:00:00 Orders Only Doctor Unassigned, Loyal [facility] 1.2.840.114 350.1.13.10 4.2.7.2.686 [id number] 2020-08-07 00:00:00 2020-08-07 00:00:00 Orders Only Doctor Unassigned, Loyal [facility] 1.2.840.114 350.1.13.10 4.2.7.2.686 [id number] [facility] 2020-06-19 00:00:00 2020-06-19 00:00:00 Letter (Out) [facility] 1.2.840.114 350.1.13.10 4.2.7.2.686 [id number] 2020-06-19 00:00:00 2020-06-19 00:00:00 Letter (Out) Macario, [facility] 1.2.840.114 350.1.13.10 4.2.7.2.686 [id number] [facility] 2020-06-18 09:53:00 2020-06-18 12:37:00 Emergency Isha Mohamud [facility] 1.2.840.114 350.1.13.10 4.2.7.2.686 [id number] 2020-06-18 09:53:00 2020-06-18 12:37:00 Emergency Isha Mohamud [facility] 1.2.840.114 350.1.13.10 4.2.7.2.686 [id number] [facility] 2020-06-18 09:40:00 2020-06-18 09:40:00 Emergency X [facility] ERT [id number] [facility] 2019-10-19 10:35:25 2019-10-19 12:39:00 Emergency Andriy Oconnor [facility] 1.2.840.114 350.1.13.10 4.2.7.2.686 [id number] 2019-10-19 10:35:25 2019-10-19 12:39:00 Emergency Andriy Oconnor [facility] 1.2.840.114 350.1.13.10 4.2.7.2.686 [id number] [facility] 2019-10-19 09:02:00 2019-10-19 09:02:00 Emergency X [facility] ERT [id number] [facility] 2019-10-19 00:00:00 2019-10-19 00:00:00 Orders Only Doctor Unassigned, Loyal [facility] 1.2.840.114 350.1.13.10 4.2.7.2.686 [id number] 2019-10-19 00:00:00 2019-10-19 00:00:00 Orders Only Doctor Unassigned, Loyal [facility] 1.2.840.114 350.1.13.10 4.2.7.2.686 [id number] [facility] Results Test Description Test Time Test Comments Results Result Co mments Source [facility] WITH [id number] 18:26:39* Test Item Value Reference Range Interpretation Comme nts WBC (test code = 6690-2) See_Comment [Automated [employer]] The system which generated this result transmitted reference range: 4.30 - 11.10 10*3/?L. The reference range was not used to interpret this result as normal/abnormal. RBC (test code = 789-8) See_Comment [Automated [employer]] The system which generated this result transmitted reference range: 3.93 - 5.25 10*6/?L. The reference range was not used to interpret this result as normal/abnormal. HGB (test code = 718-7) 13.5 g/dL 11.6-15.0 HCT (test code = 4544-3) 39.3 % 35.7-45.2 MCV (test code = 787-2) 86.0 fL 80.6-95.5 MCH (test code = 785-6) 29.5 pg 25.9-32.8 MCHC (test code = 786-4) 34.4 g/dL 31.6-35.1 RDW-SD (test code = 71073-0) 40.7 fL 39.0-49.9 RDW-CV (test code = 788-0) 13.1 % 12.0-15.5 PLT (test code = 777-3) See_Comment [Automated messa ge] The system which generated this result transmitted reference range: 166 - 358 10*3/?L. The reference range was not used to interpret this result as normal/abnormal. MPV (test code = 59935-4) 9.2 fL 9.5-12.9 L NRBC/100 WBC (test code = 9999441372) See_Comment [Automated [facility] ssage] The system which generated this result transmitted reference range: 0.0 - 10.0 /100 WBCs. The reference range was not used to interpret this result as normal/abnormal. NRBC x10^3 (test code = 8106971163) See_Comment [Automated messa ge] The system which generated this result transmitted reference range: 10*3/?L. The reference range was not used to interpret this result as normal/abnormal. GRAN MAT (NEUT) % (test code = 770-8) 55.6 % IMM GRAN % (test code = 6274777763) 0.70 % LYMPH % (test code = 736-9) 36.1 % MONO % (test code = 5905-5) 5.4 % EOS % (test code = 713-8) 1.6 % BASO % (test code = 706-2) 0.6 % GRAN MAT x10^3(ANC) (test code = 1158359645) 3.94 10*3/uL 1.88-7.09 IMM GRAN x10^3 (test code = 0129857692) 0.05 10*3/uL 0.00-0.06 LYMPH x10^3 (test code = 731-0) 2.55 10*3/uL 1.32-3.29 MONO x10^3 (test code = 742-7) 0.38 10*3/uL 0.33-0.92 EOS x10^3 (test code = 711-2) 0.11 10*3/uL 0.03-0.39 BASO x10^3 (test code = 704-7) 0.04 10*3/uL 0.01-0.07 Lab Interpretation (test code = 21814-4) [facility] 01:32:37* Test Item Value Reference Range Interpretation Comme [facility] POCT GLU (test code = 9280099878) 241 mg/dL 70-110 H Lab Interpretation (test cod e = 29813-5) Abnormal [facility] METABOLIC PANEL (NA, K, CL, CO2, GLUCOSE, BUN, CREATININE, CA)2022-01-23 16:39:19* Test Item Value Reference Range Interpretation Comme [facility] NA (test code = 9787124239) 135 mmol/L 135-145 K (test code = 2899442931) 4.1 mmol/L 3.5-5 CL (test code = 4990714622) 102 mmol/L 98-108 CO2 TOTAL (test code = 2981472528) 31 mmol/L 23-31 AGAP (test code = 4017460258) 2-16 BUN (test code = 9037189548) 8 mg/dL 7-23 GLUCOSE (test code = 5650570326) 183 mg/dL 70-110 H CREATININE (test code = 5214584969) 0.51 mg/dL 0.5-1.04 CALCIUM (test code = 3160860542) 8.9 mg/dL 8.6-10.6 eGFR (test code = 7035478427) mL/min/1.73m2 SALVADOR (test code = SALVADOR) Association of Glomerular Filtration Rate (GFR) and Staging of Kidney Disease* + --+ --+ ------+| GFR (mL/min/1.73 m2) ?| With Kidney Damage ?| ?Without Kidney Damage+ --------+ --------+ +| ?>90 ?| ?Stage one ?| ? Normal ?+ ---+ ---+ -------+| ?60-89 ?| ?Stage two ?| ? Decreased GFR ? + --+ --+ ------+| ?30-59 ?| ?Stage three ?| ? Stage three ? + --+ --+ ------+| ?15-29 ?| ?Stage four ? | ? Stage four ?+ ---+ ---+ -------+| ?<15 (or dialysis) ? ?| ?Stage five ? | ? Stage five ?+ ---+ ---+ -------+ *Each stage assumes the associated GFR level has been in effect for at least three months. ?Stages 1 to 5, with or without kidney disease, indicate chronic kidney disease. Notes: Determination of stages one and two (with eGFR >59mL/min/1.73 m2) requires estimation of kidney damage for at least three months as defined by structural or functional abnormalities of the kidney, manifested by either:Pathological abnormalities or Markers of kidney damage (including abnormalities in the composition of the blood or urine or abnormalities in imaging tests). Lab Interpretation (test code = 36387-1) Abnormal [facility] WITH [id number] 16:28:38* Test Item Value Reference Range Interpretation Comme nts WBC (test code = 6690-2) See_Comment L [Automated [employer]] The system which generated this result transmitted reference range: 4.30 - 11.10 10*3/?L. The reference range was not used to interpret this result as normal/abnormal. RBC (test code = 789-8) See_Comment L [Automated [employer]] The system which generated this result transmitted reference range: 3.93 - 5.25 10*6/?L. The reference range was not used to interpret this result as normal/abnormal. HGB (test code = 718-7) 11.2 g/dL 11.6-15 L HCT (test code = 4544-3) 32.8 % 35.7-45.2 L MCV (test code = 787-2) 84.8 fL 80.6-95.5 MCH (test code = 785-6) 28.9 pg 25.9-32.8 MCHC (test code = 786-4) 34.1 g/dL 31.6-35.1 RDW-SD (test code = 98975-7) 36.1 fL 39-49.9 L RDW-CV (test code = 788-0) 11.9 % 12-15.5 L PLT (test code = 777-3) See_Comment [Automated [employer]] The system which generated this result transmitted reference range: 166 - 358 10*3/?L. The reference range was not used to interpret this result as normal/abnormal. MPV (test code = 31724-7) 9.1 fL 9.5-12.9 L NRBC/100 WBC (test code = 4869148681) See_Comment [Automated me ssage] The system which generated this result transmitted reference range: 0.0 - 10.0 /100 WBCs. The reference range was not used to interpret this result as normal/abnormal. NRBC x10^3 (test code = 1122693403) See_Comment [Automated messa ge] The system which generated this result transmitted reference range: 10*3/?L. The reference range was not used to interpret this result as normal/abnormal. GRAN MAT (NEUT) % (test code = 770-8) 58.5 % IMM GRAN % (test code = 6908329260) 0.60 % LYMPH % (test code = 736-9) 31.8 % MONO % (test code = 5905-5) 8.2 % EOS % (test code = 713-8) 0.3 % BASO % (test code = 706-2) 0.6 % GRAN MAT x10^3(ANC) (test code = 0065057710) 2.06 10*3/uL 1.88-7.09 IMM GRAN x10^3 (test code = 0627183075) 0-0.06 LYMPH x10^3 (test code = 731-0) 1.12 10*3/uL 1.32-3.29 L MONO x10^3 (test code = 742-7) 0.29 10*3/uL 0.33-0.92 L EOS x10^3 (test code = 711-2) 0.03-0.39 L BASO x10^3 (test code = 704-7) 0.01-0.07 Lab Interpretation (test code = 57442-8) [facility], [facility] 2021-10-19 06:55:29* Test Item Value Reference Range Interpretation Comme nts CREATININE, URINE, RANDOM (test code = 2072) 63.0 MG/DL NOT ESTAB ALBUMIN, URINE, RANDOM (test code = 10954) 3.6 MG/DL NOT ESTAB CALC ALBUMIN/CREAT, RND (test code = 37378) 57 MG/G <30 H Note: Albumin/Cr eatinine ratio reference interval reflects ADA and NKF guidelines. UNLESS OTHERWISE INDICATED, ALL TESTING PERFORMED [facility] [employer] [address] [place] [id number] [employer] WORKER: STEVIE PRADO M.D. CLIA NUMBER [id number] [facility] [place]. [id number] TSH, THIRD [id number] 06:38:12* Test Item Value Reference Range Interpretation Comme nts TSH, THIRD GENERATION (test code = 2821) 7.810 UIU/ML 0.400-4.100 H LIPID [id number] 04:17:29* Test Item Value Reference Range Interpretation Comme nts CHOLESTEROL (test code = 2210) 267 MG/DL <200 H TRIGLYCERIDES (test code = 2232) 613 MG/DL <150 H HDL CHOLESTEROL (test code = 2220) 36 MG/DL >39 L CALC LDL CHOL (test code = 2237) (NOTE) MG/DL <100 UNABLE TO CALCUL ATE A VALID LDL CHOLESTEROL WHEN THE TRIGLYCERIDEVALUE IS GREATER THAN 400 MG/DL.UNABLE TO CALCULATE A VALID LDL CHOLESTEROL WHEN THE TRIGLYCERIDEVALUE IS GREATER THAN 400 MG/DL. NOTE: CALCULATED LDL IS BASED ON AMNA-LEAHY METHOD WHICHINCLUDES ADJUSTABLE TRIGLYCERIDE:VLDL CHOLESTEROL RATIO.THIS FACTOR VARIES BY MEASURED TRIGLYCERIDE AND NON-HDLCHOLESTEROL CONCENTRATIONS WITH INCREASED CALCULATED LDL SEENIN HIGHER TRIGLYCERIDE OR LOWER NON-HDL SPECIMENS. FOR MOREINFORMATION, SEE CLIENT ANNOUNCEMENT AT [email or web address] CalcLDL-C RISK RATIO LDL/HDL (test code = 2238) (NOTE) RATIO <3.22 UNABLE TO ANDIE CULATE COMPREHENSIVE METABOLIC [id number] 04:17:29* Test Item Value Reference Range Interpretation Comme nts GLUCOSE (test code = 2217) 152 MG/DL 70-99 H BUN (test code = 2208) 13 MG/DL 6-20 CREATININE (test code = 2214) 0.59 MG/DL 0.60-1.30 L eGFR (2020 CKD-EPI) (test code = 27161) 108 ML/MIN/1.73 >60 CALC BUN/CREAT (test code = 2235) 22 RATIO 6-28 SODIUM (test code = 223) 139 MEQ/L 133-146 POTASSIUM (test code = 2227) 4.1 MEQ/L 3.5-5.4 CHLORIDE (test code = 5) 98 MEQ/L 95-107 CARBON DIOXIDE (test code = 6) 25 MEQ/L 19-31 CALCIUM (test code = 2208) 10.3 MG/DL 8.5-10.5 PROTEIN, TOTAL (test code = 2228) 8.3 G/DL 6.1-8.3 ALBUMIN (test code = 2200) 4.9 G/DL 3.5-5.2 CALC GLOBULIN (test code = 0) 3.4 G/DL 1.9-3.7 CALC A/G RATIO (test code = 2233) 1.4 RATIO 1.0-2.6 BILIRUBIN, TOTAL (test code = 2206) 0.6 MG/DL See_Comment [Automated me ssage] The system which generated this result transmitted reference range: <=1.2. The reference range was not used to interpret this result as normal/abnormal. ALKALINE PHOSPHATASE (test code = 2203) 87 U/L 40-132 AST (test code = 2217) 15 U/L 9-40 ALT (test code = 2219) 16 U/L 5-40 HEMOGLOBIN [id number] 04:17:22* Test Item Value Reference Range Interpretation Comme nts HEMOGLOBIN A1c (test code = 56115) 9.4 % 4.2-5.6 H POLISH DIABETE S ASSOCIATION GUIDELINES FOR HGB A1C: PREDIABETES/INCREASED RISK . . . . . . . 5.7-6.4% DIAGNOSIS OF DIABETES . . . . . . . . . >=6.5% WITH CONFIRMATION OR APPROPRIATE SYMPTOMS NOTE: ASSAY MAY BE AFFECTED BY HEMOGLOBINOPATHIES (SICKLE CELL ANEMIA, S-C DISEASE, OTHERS) OR ARTIFICIALLY LOWERED BY DECREASED RED CELL SURVIVAL (HEMOLYTIC ANEMIAS, BLOOD LOSS, ETC.). CONSIDER ALTERNATE TESTING OR LABORATORY CONSULTATION. HEMOGLOBIN [id number] 00:00:00* Test Item Value Reference Range Interpretation Comme nts HEMOGLOBIN A1c (test code = 70558) 9.4 % COMPREHENSIVE METABOLIC [id number] 00:00:00* Test Item Value Reference Range Interpretation Comme nts GLUCOSE (test code = 7) 152 MG/DL BUN (test code = 8) 13 MG/DL CREATININE (test code = 2214) 0.59 MG/DL eGFR (2020 CKD-EPI) (test code = 88376) 108 ML/MIN/1.73 CALC BUN/CREAT (test code = 2235) 22 RATIO SODIUM (test code = 2231) 139 MEQ/L POTASSIUM (test code = 2228) 4.1 MEQ/L CHLORIDE (test code = 2215) 98 MEQ/L CARBON DIOXIDE (test code = 2206) 25 MEQ/L CALCIUM (test code = 2209) 10.3 MG/DL PROTEIN, TOTAL (test code = 2229) 8.3 G/DL ALBUMIN (test code = 2201) 4.9 G/DL CALC GLOBULIN (test code = 2240) 3.4 G/DL CALC A/G RATIO (test code = 2234) 1.4 RATIO BILIRUBIN, TOTAL (test code = 2207) 0.6 MG/DL ALKALINE PHOSPHATASE (test code = 2204) 87 U/L AST (test code = 2218) 15 U/L ALT (test code = 2219) 16 U/L LIPID [id number] 00:00:00* Test Item Value Reference Range Interpretation Comme nts CHOLESTEROL (test code = 2210) 267 MG/DL TRIGLYCERIDES (test code = 2232) 613 MG/DL HDL CHOLESTEROL (test code = 2220) 36 MG/DL CALC LDL CHOL (test code = 2237) (NOTE) MG/DL RISK RATIO LDL/HDL (test cod e = 2238) (NOTE) RATIO [id number] 00:00:00* Test Item Value Reference Range Interpretation Comme nts TSH, THIRD GENERATION (test code = 2821) 7.810 UIU/ML MICROALBUMIN/CREATININE, RANDOM AND [id number] 00:00:00* Test Item Value Reference Range Interpretation Comme nts CREATININE, URINE, RANDOM (t est code = 2072) 63.0 MG/DL ALBUMIN, URINE, RANDOM (test code = 18731) 3.6 MG/DL CALC ALBUMIN/CREAT, RND (farrukh t code = 65514) 57 MG/G HEMOGLOBIN [id number] 00:00:00* Test Item Value Reference Range Interpretation Comme nts HEMOGLOBIN A1c (test code = 90240) 9.4 % COMPREHENSIVE METABOLIC [id number] 00:00:00* Test Item Value Reference Range Interpretation Comme nts GLUCOSE (test code = 2217) 152 MG/DL BUN (test code = 2208) 13 MG/DL CREATININE (test code = 2214) 0.59 MG/DL eGFR (2020 CKD-EPI) (test code = 43242) 108 ML/MIN/1.73 CALC BUN/CREAT (test code = 2235) 22 RATIO SODIUM (test code = 2231) 139 MEQ/L POTASSIUM (test code = 2228) 4.1 MEQ/L CHLORIDE (test code = 2215) 98 MEQ/L CARBON DIOXIDE (test code = 2206) 25 MEQ/L CALCIUM (test code = 2209) 10.3 MG/DL PROTEIN, TOTAL (test code = 2229) 8.3 G/DL ALBUMIN (test code = 2201) 4.9 G/DL CALC GLOBULIN (test code = 2240) 3.4 G/DL CALC A/G RATIO (test code = 2234) 1.4 RATIO BILIRUBIN, TOTAL (test code = 2207) 0.6 MG/DL ALKALINE PHOSPHATASE (test code = 2204) 87 U/L AST (test code = 2218) 15 U/L ALT (test code = 2219) 16 U/L LIPID [id number] 00:00:00* Test Item Value Reference Range Interpretation Comme nts CHOLESTEROL (test code = 2210) 267 MG/DL TRIGLYCERIDES (test code = 2232) 613 MG/DL HDL CHOLESTEROL (test code = 2220) 36 MG/DL CALC LDL CHOL (test code = 2237) (NOTE) MG/DL RISK RATIO LDL/HDL (test cod e = 2238) (NOTE) RATIO [id number] 00:00:00* Test Item Value Reference Range Interpretation Comme nts TSH, THIRD GENERATION (test code = 2821) 7.810 UIU/ML MICROALBUMIN/CREATININE, RANDOM AND [id number] 00:00:00* Test Item Value Reference Range Interpretation Comme nts CREATININE, URINE, RANDOM (t est code = 2072) 63.0 MG/DL ALBUMIN, URINE, RANDOM (test code = 37271) 3.6 MG/DL CALC ALBUMIN/CREAT, RND (farrukh t code = 35067) 57 MG/G CULTURE, [id number] 00:00:00* Test Item Value Reference Range Interpretation Comme nts CULTURE, URINE (test code = 66688) SPECIMEN NUMBER: [id number] CULTURE, [id number] 00:00:00* Test Item Value Reference Range Interpretation Comme nts CULTURE, URINE (test code = 44194) SPECIMEN NUMBER: [id number] HEMOGLOBIN [id number] 00:00:00* Test Item Value Reference Range Interpretation Comme nts HEMOGLOBIN A1c (test code = 05768) 10.5 % LIPID [id number] 00:00:00* Test Item Value Reference Range Interpretation Comme nts CHOLESTEROL (test code = 2210) 217 MG/DL TRIGLYCERIDES (test code = 2232) 615 MG/DL HDL CHOLESTEROL (test code = 2220) 30 MG/DL CALC LDL CHOL (test code = 2237) (NOTE) MG/DL RISK RATIO LDL/HDL (test cod e = 2238) (NOTE) RATIO COMPREHENSIVE METABOLIC [id number] 00:00:00* Test Item Value Reference Range Interpretation Comme nts GLUCOSE (test code = 2217) 274 MG/DL BUN (test code = 2208) 13 MG/DL CREATININE (test code = 2214) 0.57 MG/DL eGFR AMER. (test cod e = 38023) 124 ML/MIN/1.73 eGFR NON- AMER. (test code = 55141) 107 ML/MIN/1.73 CALC BUN/CREAT (test code = 2235) 23 RATIO SODIUM (test code = 2231) 136 MEQ/L POTASSIUM (test code = 2228) 4.6 MEQ/L CHLORIDE (test code = 2215) 96 MEQ/L CARBON DIOXIDE (test code = 2206) 27 MEQ/L CALCIUM (test code = 2209) 9.9 MG/DL PROTEIN, TOTAL (test code = 2229) 7.7 G/DL ALBUMIN (test code = 2201) 4.5 G/DL CALC GLOBULIN (test code = 2240) 3.2 G/DL CALC A/G RATIO (test code = 2234) 1.4 RATIO BILIRUBIN, TOTAL (test code = 2207) 0.3 MG/DL ALKALINE PHOSPHATASE (test code = 2204) 109 U/L AST (test code = 2218) 14 U/L ALT (test code = 2219) 15 U/L [id number] 00:00:00* Test Item Value Reference Range Interpretation Comme nts TSH, THIRD GENERATION (test code = 2821) 11.900 UIU/ML MICROALBUMIN/CREATININE, RANDOM AND [id number] 00:00:00* Test Item Value Reference Range Interpretation Comme nts CREATININE, URINE, CONC. (te st code = 2072) 50.8 MG/DL ALBUMIN, URINE, RANDOM (test code = 98989) 11.2 MG/DL CALC ALBUMIN/CREAT, RND (farrukh t code = 59926) 220 MG/G URIC [id number] 00:00:00* Test Item Value Reference Range Interpretation Comme nts URIC ACID (test code = 2233) 6.4 MG/DL HEMOGLOBIN [id number] 00:00:00* Test Item Value Reference Range Interpretation Comme nts HEMOGLOBIN A1c (test code = 38761) 10.5 % LIPID [id number] 00:00:00* Test Item Value Reference Range Interpretation Comme nts CHOLESTEROL (test code = 2210) 217 MG/DL TRIGLYCERIDES (test code = 2232) 615 MG/DL HDL CHOLESTEROL (test code = 2220) 30 MG/DL CALC LDL CHOL (test code = 2237) (NOTE) MG/DL RISK RATIO LDL/HDL (test cod e = 2238) (NOTE) RATIO COMPREHENSIVE METABOLIC [id number] 00:00:00* Test Item Value Reference Range Interpretation Comme nts GLUCOSE (test code = 2217) 274 MG/DL BUN (test code = 2208) 13 MG/DL CREATININE (test code = 2214) 0.57 MG/DL eGFR AMER. (test cod e = 64560) 124 ML/MIN/1.73 eGFR NON- AMER. (test code = 28425) 107 ML/MIN/1.73 CALC BUN/CREAT (test code = 2235) 23 RATIO SODIUM (test code = 2231) 136 MEQ/L POTASSIUM (test code = 2228) 4.6 MEQ/L CHLORIDE (test code = 2215) 96 MEQ/L CARBON DIOXIDE (test code = 2206) 27 MEQ/L CALCIUM (test code = 2209) 9.9 MG/DL PROTEIN, TOTAL (test code = 2229) 7.7 G/DL ALBUMIN (test code = 2201) 4.5 G/DL CALC GLOBULIN (test code = 2240) 3.2 G/DL CALC A/G RATIO (test code = 2234) 1.4 RATIO BILIRUBIN, TOTAL (test code = 2207) 0.3 MG/DL ALKALINE PHOSPHATASE (test code = 2204) 109 U/L AST (test code = 2218) 14 U/L ALT (test code = 2219) 15 U/L [id number] 00:00:00* Test Item Value Reference Range Interpretation Comme nts TSH, THIRD GENERATION (test code = 2821) 11.900 UIU/ML MICROALBUMIN/CREATININE, RANDOM AND [id number] 00:00:00* Test Item Value Reference Range Interpretation Comme nts CREATININE, URINE, CONC. (te st code = 2072) 50.8 MG/DL ALBUMIN, URINE, RANDOM (test code = 35920) 11.2 MG/DL CALC ALBUMIN/CREAT, RND (farrukh t code = 59027) 220 MG/G URIC [id number] 00:00:00* Test Item Value Reference Range Interpretation Comme nts URIC ACID (test code = 2233) 6.4 MG/DL CULTURE, [id number] 00:00:00* Test Item Value Reference Range Interpretation Comme nts CULTURE, URINE (test code = 56592) SPECIMEN NUMBER: [id number] CULTURE, [id number] 00:00:00* Test Item Value Reference Range Interpretation Comme nts CULTURE, URINE (test code = 13311) SPECIMEN NUMBER: [id number] HEMOGLOBIN [id number] 00:00:00* Test Item Value Reference Range Interpretation Comme nts HEMOGLOBIN A1c (test code = 97431) 10.1 % URIC [id number] 00:00:00* Test Item Value Reference Range Interpretation Comme nts URIC ACID (test code = 2233) 1.5 MG/DL HEMOGLOBIN [id number] 00:00:00* Test Item Value Reference Range Interpretation Comme nts HEMOGLOBIN A1c (test code = 14662) 10.1 % URIC [id number] 00:00:00* Test Item Value Reference Range Interpretation Comme nts URIC ACID (test code = 2233) 1.5 MG/DL CULTURE, [id number] 00:00:00* Test Item Value Reference Range Interpretation Comme nts CULTURE, URINE (test code = 32736) SPECIMEN NUMBER: [id number] CULTURE, [id number] 00:00:00* Test Item Value Reference Range Interpretation Comme nts CULTURE, URINE (test code = 36595) SPECIMEN NUMBER: [id number] MICROALBUMIN/CREATININE, RANDOM AND [id number] 00:00:00* Test Item Value Reference Range Interpretation Comme nts CREATININE, URINE, CONC. (te st code = 2071) 120.8 MG/DL ALBUMIN, URINE, RANDOM (test code = 67795) 5.2 MG/DL CALC ALBUMIN/CREAT, RND (farrukh t code = 26842) 43 MG/G URINALYSIS W/REFLEX [id number] 00:00:00* Test Item Value Reference Range Interpretation Comme nts COLOR (test code = 1501) YELLOW APPEARANCE (test code = 1502) TURBID SPECIFIC GRAVITY (test code = 1503) 1.020 LEUKOCYTE ESTERASE (test cod e = 1504) 3+ NITRITE (test code = 1505) POSITIVE pH (test code = 1506) 5.0 PROTEIN (test code = 1507) NEGATIVE GLUCOSE (test code = 1508) 1+ KETONES (test code = 1509) NEGATIVE UROBILINOGEN (test code = 1510) <2.0 MG/DL BILIRUBIN (test code = 1511) NEGATIVE OCCULT BLOOD (test code = 1512) 1+ WHITE BLOOD CELLS (test code = 1513) >50 /HPF RED BLOOD CELLS (test code = 1514) >50 /HPF EPITHELIAL CELLS (test code = 92278) /HPF BACTERIA (test code = 1515) 3+ CRYSTALS (test code = 1516) (NOTE) /HPF MICROALBUMIN/CREATININE, RANDOM AND [id number] 00:00:00* Test Item Value Reference Range Interpretation Comme nts CREATININE, URINE, CONC. (te st code = 207) 120.8 MG/DL ALBUMIN, URINE, RANDOM (test code = 38345) 5.2 MG/DL CALC ALBUMIN/CREAT, RND (farrukh t code = 92246) 43 MG/G URINALYSIS W/REFLEX [id number] 00:00:00* Test Item Value Reference Range Interpretation Comme nts COLOR (test code = 1501) YELLOW APPEARANCE (test code = 1502) TURBID SPECIFIC GRAVITY (test code = 1503) 1.020 LEUKOCYTE ESTERASE (test cod e = 1504) 3+ NITRITE (test code = 1505) POSITIVE pH (test code = 1506) 5.0 PROTEIN (test code = 1507) NEGATIVE GLUCOSE (test code = 1508) 1+ KETONES (test code = 1509) NEGATIVE UROBILINOGEN (test code = 1510) <2.0 MG/DL BILIRUBIN (test code = 1511) NEGATIVE OCCULT BLOOD (test code = 1512) 1+ WHITE BLOOD CELLS (test code = 1513) >50 /HPF RED BLOOD CELLS (test code = 1514) >50 /HPF EPITHELIAL CELLS (test code = 03708) /HPF BACTERIA (test code = 1515) 3+ CRYSTALS (test code = 1516) (NOTE) /HPF CULTURE, [id number] 00:00:00* Test Item Value Reference Range Interpretation Comme nts CULTURE, URINE (test code = 68455) SPECIMEN NUMBER: [id number] CULTURE, [id number] 00:00:00* Test Item Value Reference Range Interpretation Comme nts CULTURE, URINE (test code = 16985) SPECIMEN NUMBER: [id number] COMPREHENSIVE METABOLIC [id number] 00:00:00* Test Item Value Reference Range Interpretation Comme nts GLUCOSE (test code = 2217) 274 MG/DL BUN (test code = 2208) 11 MG/DL CREATININE (test code = 2214) 0.59 MG/DL eGFR AMER. (test cod e = 93651) 124 ML/MIN/1.73 eGFR NON- AMER. (test code = 81895) 107 ML/MIN/1.73 CALC BUN/CREAT (test code = 2235) 19 RATIO SODIUM (test code = 2231) 139 MEQ/L POTASSIUM (test code = 2228) 3.9 MEQ/L CHLORIDE (test code = 2215) 102 MEQ/L CARBON DIOXIDE (test code = 2206) 23 MEQ/L CALCIUM (test code = 2209) 9.7 MG/DL PROTEIN, TOTAL (test code = 2229) 8.3 G/DL ALBUMIN (test code = 2201) 4.8 G/DL CALC GLOBULIN (test code = 2240) 3.5 G/DL CALC A/G RATIO (test code = 2234) 1.4 RATIO BILIRUBIN, TOTAL (test code = 2207) 0.3 MG/DL ALKALINE PHOSPHATASE (test code = 2204) 93 U/L AST (test code = 2218) 14 U/L ALT (test code = 2219) 18 U/L LIPID [id number] 00:00:00* Test Item Value Reference Range Interpretation Comme nts CHOLESTEROL (test code = 2210) 258 MG/DL TRIGLYCERIDES (test code = 2232) 1054 MG/DL HDL CHOLESTEROL (test code = 2220) 30 MG/DL CALC LDL CHOL (test code = 2237) (NOTE) MG/DL RISK RATIO LDL/HDL (test cod e = 223) (NOTE) RATIO HEMOGLOBIN [id number] 00:00:00* Test Item Value Reference Range Interpretation Comme nts HEMOGLOBIN A1c (test code = 83379) 9.1 % [id number] 00:00:00* Test Item Value Reference Range Interpretation Comme nts TSH, THIRD GENERATION (test code = 2821) 6.350 UIU/ML COMPREHENSIVE METABOLIC [id number] 00:00:00* Test Item Value Reference Range Interpretation Comme nts GLUCOSE (test code = 7) 274 MG/DL BUN (test code = 2208) 11 MG/DL CREATININE (test code = 2214) 0.59 MG/DL eGFR AMER. (test cod e = 14885) 124 ML/MIN/1.73 eGFR NON- AMER. (test code = 10316) 107 ML/MIN/1.73 CALC BUN/CREAT (test code = 2235) 19 RATIO SODIUM (test code = 2231) 139 MEQ/L POTASSIUM (test code = 2228) 3.9 MEQ/L CHLORIDE (test code = 2215) 102 MEQ/L CARBON DIOXIDE (test code = 2206) 23 MEQ/L CALCIUM (test code = 2209) 9.7 MG/DL PROTEIN, TOTAL (test code = 2229) 8.3 G/DL ALBUMIN (test code = 2201) 4.8 G/DL CALC GLOBULIN (test code = 2240) 3.5 G/DL CALC A/G RATIO (test code = 2234) 1.4 RATIO BILIRUBIN, TOTAL (test code = 2207) 0.3 MG/DL ALKALINE PHOSPHATASE (test code = 2204) 93 U/L AST (test code = 2218) 14 U/L ALT (test code = 2219) 18 U/L LIPID [id number] 00:00:00* Test Item Value Reference Range Interpretation Comme nts CHOLESTEROL (test code = 2210) 258 MG/DL TRIGLYCERIDES (test code = 2232) 1054 MG/DL HDL CHOLESTEROL (test code = 2220) 30 MG/DL CALC LDL CHOL (test code = 2237) (NOTE) MG/DL RISK RATIO LDL/HDL (test cod e = 2238) (NOTE) RATIO HEMOGLOBIN [id number] 00:00:00* Test Item Value Reference Range Interpretation Comme nts HEMOGLOBIN A1c (test code = 51004) 9.1 % [id number] 00:00:00* Test Item Value Reference Range Interpretation Comme nts TSH, THIRD GENERATION (test code = 2821) 6.350 UIU/ML HEMOGLOBIN [id number] 00:00:00* Test Item Value Reference Range Interpretation Comme nts HEMOGLOBIN A1c (test code = 11256) 8.9 % LIPID [id number] 00:00:00* Test Item Value Reference Range Interpretation Comme nts CHOLESTEROL (test code = 2210) 203 MG/DL TRIGLYCERIDES (test code = 2232) 720 MG/DL HDL CHOLESTEROL (test code = 2220) 29 MG/DL CALC LDL CHOL (test code = 2237) (NOTE) MG/DL RISK RATIO LDL/HDL (test cod e = 2238) (NOTE) RATIO URIC [id number] 00:00:00* Test Item Value Reference Range Interpretation Comme nts URIC ACID (test code = 2233) 7.8 MG/DL [id number] 00:00:00* Test Item Value Reference Range Interpretation Comme nts TSH, THIRD GENERATION (test code = 2821) 8.890 UIU/ML HEMOGLOBIN [id number] 00:00:00* Test Item Value Reference Range Interpretation Comme nts HEMOGLOBIN A1c (test code = 30866) 8.9 % LIPID [id number] 00:00:00* Test Item Value Reference Range Interpretation Comme nts CHOLESTEROL (test code = 2210) 203 MG/DL TRIGLYCERIDES (test code = 2232) 720 MG/DL HDL CHOLESTEROL (test code = 2220) 29 MG/DL CALC LDL CHOL (test code = 2237) (NOTE) MG/DL RISK RATIO LDL/HDL (test cod e = 2238) (NOTE) RATIO URIC [id number] 00:00:00* Test Item Value Reference Range Interpretation Comme nts URIC ACID (test code = 2233) 7.8 MG/DL [id number] 00:00:00* Test Item Value Reference Range Interpretation Comme nts TSH, THIRD GENERATION (test code = 2821) 8.890 UIU/ML LIPID [id number] 00:00:00* Test Item Value Reference Range Interpretation Comme nts CHOLESTEROL (test code = 2210) 235 MG/DL TRIGLYCERIDES (test code = 2232) 777 MG/DL HDL CHOLESTEROL (test code = 2220) 30 MG/DL CALC LDL CHOL (test code = 2237) NOTE MG/DL RISK RATIO LDL/HDL (test cod e = 2238) (NOTE) RATIO HEMOGLOBIN [id number] 00:00:00* Test Item Value Reference Range Interpretation Comme nts HEMOGLOBIN A1c (test code = 36464) 9.4 % COMPREHENSIVE METABOLIC [id number] 00:00:00* Test Item Value Reference Range Interpretation Comme nts GLUCOSE (test code = 2217) 333 MG/DL BUN (test code = 2208) 13 MG/DL CREATININE (test code = 2214) 0.64 MG/DL eGFR AMER. (test cod e = 75799) 121 ML/MIN/1.73 eGFR NON- AMER. (test code = 85121) 104 ML/MIN/1.73 CALC BUN/CREAT (test code = 2235) 20 RATIO SODIUM (test code = 2231) 137 MEQ/L POTASSIUM (test code = 2228) 4.3 MEQ/L CHLORIDE (test code = 2215) 98 MEQ/L CARBON DIOXIDE (test code = 2206) 28 MEQ/L CALCIUM (test code = 2209) 10.0 MG/DL PROTEIN, TOTAL (test code = 2229) 7.7 G/DL ALBUMIN (test code = 2201) 4.5 G/DL CALC GLOBULIN (test code = 2240) 3.2 G/DL CALC A/G RATIO (test code = 2234) 1.4 RATIO BILIRUBIN, TOTAL (test code = 2207) 0.3 MG/DL ALKALINE PHOSPHATASE (test code = 2204) 89 U/L AST (test code = 2218) 13 U/L ALT (test code = 2219) 14 U/L MICROALBUMIN/CREATININE, RANDOM AND [id number] 00:00:00* Test Item Value Reference Range Interpretation Comme nts CREATININE, URINE, CONC. (te st code = 2072) 51.8 MG/DL ALBUMIN, URINE, RANDOM (test code = 59979) 4.4 MG/DL CALC ALBUMIN/CREAT, RND (farrukh t code = 71464) 85 MG/G URIC [id number] 00:00:00* Test Item Value Reference Range Interpretation Comme nts URIC ACID (test code = 2233) 7.1 MG/DL LIPID [id number] 00:00:00* Test Item Value Reference Range Interpretation Comme nts CHOLESTEROL (test code = 2210) 235 MG/DL TRIGLYCERIDES (test code = 2232) 777 MG/DL HDL CHOLESTEROL (test code = 2220) 30 MG/DL CALC LDL CHOL (test code = 2237) NOTE MG/DL RISK RATIO LDL/HDL (test cod e = 2238) (NOTE) RATIO HEMOGLOBIN [id number] 00:00:00* Test Item Value Reference Range Interpretation Comme nts HEMOGLOBIN A1c (test code = 70919) 9.4 % COMPREHENSIVE METABOLIC [id number] 00:00:00* Test Item Value Reference Range Interpretation Comme nts GLUCOSE (test code = 2217) 333 MG/DL BUN (test code = 2208) 13 MG/DL CREATININE (test code = 2214) 0.64 MG/DL eGFR AMER. (test cod e = 99722) 121 ML/MIN/1.73 eGFR NON- AMER. (test code = 92932) 104 ML/MIN/1.73 CALC BUN/CREAT (test code = 2235) 20 RATIO SODIUM (test code = 2231) 137 MEQ/L POTASSIUM (test code = 2228) 4.3 MEQ/L CHLORIDE (test code = 2215) 98 MEQ/L CARBON DIOXIDE (test code = 2206) 28 MEQ/L CALCIUM (test code = 2209) 10.0 MG/DL PROTEIN, TOTAL (test code = 2229) 7.7 G/DL ALBUMIN (test code = 2201) 4.5 G/DL CALC GLOBULIN (test code = 2240) 3.2 G/DL CALC A/G RATIO (test code = 2234) 1.4 RATIO BILIRUBIN, TOTAL (test code = 2207) 0.3 MG/DL ALKALINE PHOSPHATASE (test code = 2204) 89 U/L AST (test code = 2218) 13 U/L ALT (test code = 2219) 14 U/L MICROALBUMIN/CREATININE, RANDOM AND [id number] 00:00:00* Test Item Value Reference Range Interpretation Comme nts CREATININE, URINE, CONC. (te st code = 2072) 51.8 MG/DL ALBUMIN, URINE, RANDOM (test code = 68351) 4.4 MG/DL CALC ALBUMIN/CREAT, RND (farrukh t code = 71586) 85 MG/G URIC [id number] 00:00:00* Test Item Value Reference Range Interpretation Comme nts URIC ACID (test code = 2233) 7.1 MG/DL HEMOGLOBIN [id number] 00:00:00* Test Item Value Reference Range Interpretation Comme nts HEMOGLOBIN A1c (test code = 90044) 10.1 % LIPID [id number] 00:00:00* Test Item Value Reference Range Interpretation Comme nts CHOLESTEROL (test code = 2210) 220 MG/DL TRIGLYCERIDES (test code = 2232) 701 MG/DL HDL CHOLESTEROL (test code = 2220) 27 MG/DL CALC LDL CHOL (test code = 2237) NOTE MG/DL RISK RATIO LDL/HDL (test cod e = 2238) (NOTE) RATIO [id number] 00:00:00* Test Item Value Reference Range Interpretation Comme nts TSH, THIRD GENERATION (test code = 2821) 37.700 UIU/ML HEMOGLOBIN [id number] 00:00:00* Test Item Value Reference Range Interpretation Comme nts HEMOGLOBIN A1c (test code = 97228) 10.1 % LIPID [id number] 00:00:00* Test Item Value Reference Range Interpretation Comme nts CHOLESTEROL (test code = 2210) 220 MG/DL TRIGLYCERIDES (test code = 2232) 701 MG/DL HDL CHOLESTEROL (test code = 2220) 27 MG/DL CALC LDL CHOL (test code = 2237) NOTE MG/DL RISK RATIO LDL/HDL (test cod e = 2238) (NOTE) RATIO [id number] 00:00:00* Test Item Value Reference Range Interpretation Comme nts TSH, THIRD GENERATION (test code = 2821) 37.700 UIU/ML CBC W/AUTO [id number] 00:00:00* Test Item Value Reference Range Interpretation Comme nts WBC (test code = 1001) 6.6 K/UL RBC (test code = 1002) 4.54 M/UL HEMOGLOBIN (test code = 1003) 13.8 G/DL HEMATOCRIT (test code = 1004) 40.0 % MCV (test code = 1005) 88.1 fL MCH (test code = 1006) 30.4 PG MCHC (test code = 1007) 34.5 G/DL RDW (test code = 1038) 13.7 % NEUTROPHILS (test code = 1008) 55.0 % LYMPHOCYTES (test code = 1010) 34.6 % MONOCYTES (test code = 1011) 6.6 % EOSINOPHILS (test code = 1012) 3.2 % BASOPHILS (test code = 1013) 0.6 % PLATELET COUNT (test code = 1015) 287 K/UL LIPID [id number] 00:00:00* Test Item Value Reference Range Interpretation Comme nts CHOLESTEROL (test code = 2210) 214 MG/DL TRIGLYCERIDES (test code = 2232) 990 MG/DL HDL CHOLESTEROL (test code = 2220) 25 MG/DL CALC LDL CHOL (test code = 2237) NOTE MG/DL RISK RATIO LDL/HDL (test cod e = 2238) (NOTE) RATIO HEMOGLOBIN [id number] 00:00:00* Test Item Value Reference Range Interpretation Comme nts HEMOGLOBIN A1c (test code = 85081) 9.6 % COMPREHENSIVE METABOLIC [id number] 00:00:00* Test Item Value Reference Range Interpretation Comme nts GLUCOSE (test code = 2217) 368 MG/DL BUN (test code = 2208) 12 MG/DL CREATININE (test code = 2214) 0.64 MG/DL eGFR AMER. (test cod e = 74551) 121 ML/MIN/1.73 eGFR NON- AMER. (test code = 73490) 105 ML/MIN/1.73 CALC BUN/CREAT (test code = 2235) 19 RATIO SODIUM (test code = 2231) 137 MEQ/L POTASSIUM (test code = 2228) 4.5 MEQ/L CHLORIDE (test code = 2215) 95 MEQ/L CARBON DIOXIDE (test code = 2206) 26 MEQ/L CALCIUM (test code = 2209) 9.6 MG/DL PROTEIN, TOTAL (test code = 2229) 8.1 G/DL ALBUMIN (test code = 2201) 4.4 G/DL CALC GLOBULIN (test code = 2240) 3.7 G/DL CALC A/G RATIO (test code = 2234) 1.2 RATIO BILIRUBIN, TOTAL (test code = 2207) <0.2 MG/DL ALKALINE PHOSPHATASE (test code = 2204) 109 U/L AST (test code = 2218) 21 U/L ALT (test code = 2219) 22 U/L [id number] 00:00:00* Test Item Value Reference Range Interpretation Comme nts TSH, THIRD GENERATION (test code = 2821) 7.820 UIU/ML URIC [id number] 00:00:00* Test Item Value Reference Range Interpretation Comme nts URIC ACID (test code = 2233) 7.3 MG/DL CBC W/AUTO [id number] 00:00:00* Test Item Value Reference Range Interpretation Comme nts WBC (test code = 1001) 6.6 K/UL RBC (test code = 1002) 4.54 M/UL HEMOGLOBIN (test code = 1003) 13.8 G/DL HEMATOCRIT (test code = 1004) 40.0 % MCV (test code = 1005) 88.1 fL MCH (test code = 1006) 30.4 PG MCHC (test code = 1007) 34.5 G/DL RDW (test code = 1038) 13.7 % NEUTROPHILS (test code = 1008) 55.0 % LYMPHOCYTES (test code = 1010) 34.6 % MONOCYTES (test code = 1011) 6.6 % EOSINOPHILS (test code = 1012) 3.2 % BASOPHILS (test code = 1013) 0.6 % PLATELET COUNT (test code = 1015) 287 K/UL LIPID [id number] 00:00:00* Test Item Value Reference Range Interpretation Comme nts CHOLESTEROL (test code = 2210) 214 MG/DL TRIGLYCERIDES (test code = 2232) 990 MG/DL HDL CHOLESTEROL (test code = 2220) 25 MG/DL CALC LDL CHOL (test code = 2237) NOTE MG/DL RISK RATIO LDL/HDL (test cod e = 2238) (NOTE) RATIO HEMOGLOBIN [id number] 00:00:00* Test Item Value Reference Range Interpretation Comme nts HEMOGLOBIN A1c (test code = 24527) 9.6 % COMPREHENSIVE METABOLIC [id number] 00:00:00* Test Item Value Reference Range Interpretation Comme nts GLUCOSE (test code = 2217) 368 MG/DL BUN (test code = 2208) 12 MG/DL CREATININE (test code = 2214) 0.64 MG/DL eGFR AMER. (test cod e = 35935) 121 ML/MIN/1.73 eGFR NON- AMER. (test code = 20054) 105 ML/MIN/1.73 CALC BUN/CREAT (test code = 2235) 19 RATIO SODIUM (test code = 2231) 137 MEQ/L POTASSIUM (test code = 2228) 4.5 MEQ/L CHLORIDE (test code = 2215) 95 MEQ/L CARBON DIOXIDE (test code = 2206) 26 MEQ/L CALCIUM (test code = 2209) 9.6 MG/DL PROTEIN, TOTAL (test code = 2229) 8.1 G/DL ALBUMIN (test code = 2201) 4.4 G/DL CALC GLOBULIN (test code = 2240) 3.7 G/DL CALC A/G RATIO (test code = 2234) 1.2 RATIO BILIRUBIN, TOTAL (test code = 2207) <0.2 MG/DL ALKALINE PHOSPHATASE (test code = 2204) 109 U/L AST (test code = 2218) 21 U/L ALT (test code = 2219) 22 U/L [id number] 00:00:00* Test Item Value Reference Range Interpretation Comme [facility] TSH, THIRD GENERATION (test code = 2821) 7.820 UIU/ML URIC [id number] 00:00:00* Test Item Value Reference Range Interpretation Comme nts URIC ACID (test code = 2233) 7.3 MG/DL URIC [id number] 00:00:00* Test Item Value Reference Range Interpretation Comme nts URIC ACID (test code = 2233) 9.4 MG/DL [id number] 00:00:00* Test Item Value Reference Range Interpretation Comme nts TSH (test code = 2821) 26.460 UIU/ML LIPID [id number] 00:00:00* Test Item Value Reference Range Interpretation Comme nts CHOLESTEROL (test code = 2210) 279 MG/DL TRIGLYCERIDES (test code = 2232) 883 MG/DL HDL CHOLESTEROL (test code = 2220) 33 MG/DL CALC LDL CHOL (test code = 2237) NOTE MG/DL RISK RATIO LDL/HDL (test cod e = 2238) (NOTE) RATIO CBC W/AUTO [id number] 00:00:00* Test Item Value Reference Range Interpretation Comme nts WBC (test code = 1001) 6.6 K/UL RBC (test code = 1002) 4.80 M/UL HEMOGLOBIN (test code = 1003) 14.6 G/DL HEMATOCRIT (test code = 1004) 43.6 % MCV (test code = 1005) 90.8 fL MCH (test code = 1006) 30.4 PG MCHC (test code = 1007) 33.5 G/DL RDW (test code = 1038) 13.9 % NEUTROPHILS (test code = 1008) 50.6 % LYMPHOCYTES (test code = 1010) 40.6 % MONOCYTES (test code = 1011) 7.1 % EOSINOPHILS (test code = 1012) 1.2 % BASOPHILS (test code = 1013) 0.5 % PLATELET COUNT (test code = 1015) 306 K/UL COMPREHENSIVE METABOLIC [id number] 00:00:00* Test Item Value Reference Range Interpretation Comme nts GLUCOSE (test code = 2217) 201 MG/DL BUN (test code = 2208) 15 MG/DL CREATININE (test code = 2214) 0.55 MG/DL eGFR AMER. (test cod e = 67263) 129 ML/MIN/1.73 eGFR NON- AMER. (test code = 23761) 111 ML/MIN/1.73 CALC BUN/CREAT (test code = 2235) 27 RATIO SODIUM (test code = 2231) 136 MEQ/L POTASSIUM (test code = 2228) 4.6 MEQ/L CHLORIDE (test code = 2215) 95 MEQ/L CARBON DIOXIDE (test code = 2206) 27 MEQ/L CALCIUM (test code = 2209) 10.6 MG/DL PROTEIN, TOTAL (test code = 2229) 8.1 G/DL ALBUMIN (test code = 2201) 4.7 G/DL CALC GLOBULIN (test code = 2240) 3.4 G/DL CALC A/G RATIO (test code = 2234) 1.4 RATIO BILIRUBIN, TOTAL (test code = 2207) 0.4 MG/DL ALKALINE PHOSPHATASE (test code = 2204) 78 U/L AST (test code = 2218) 36 U/L ALT (test code = 2219) 42 U/L HEMOGLOBIN [id number] 00:00:00* Test Item Value Reference Range Interpretation Comme [facility] HEMOGLOBIN A1c (test code = 96008) 8.6 % URIC [id number] 00:00:00* Test Item Value Reference Range Interpretation Comme [facility] URIC ACID (test code = 2233) 9.4 MG/DL [id number] 00:00:00* Test Item Value Reference Range Interpretation Comme nts TSH (test code = 2821) 26.460 UIU/ML LIPID [id number] 00:00:00* Test Item Value Reference Range Interpretation Comme nts CHOLESTEROL (test code = 2210) 279 MG/DL TRIGLYCERIDES (test code = 2232) 883 MG/DL HDL CHOLESTEROL (test code = 2220) 33 MG/DL CALC LDL CHOL (test code = 2237) NOTE MG/DL RISK RATIO LDL/HDL (test cod e = 2238) (NOTE) RATIO CBC W/AUTO [id number] 00:00:00* Test Item Value Reference Range Interpretation Comme nts WBC (test code = 1001) 6.6 K/UL RBC (test code = 1002) 4.80 M/UL HEMOGLOBIN (test code = 1003) 14.6 G/DL HEMATOCRIT (test code = 1004) 43.6 % MCV (test code = 1005) 90.8 fL MCH (test code = 1006) 30.4 PG MCHC (test code = 1007) 33.5 G/DL RDW (test code = 1038) 13.9 % NEUTROPHILS (test code = 1008) 50.6 % LYMPHOCYTES (test code = 1010) 40.6 % MONOCYTES (test code = 1011) 7.1 % EOSINOPHILS (test code = 1012) 1.2 % BASOPHILS (test code = 1013) 0.5 % PLATELET COUNT (test code = 1015) 306 K/UL COMPREHENSIVE METABOLIC [id number] 00:00:00* Test Item Value Reference Range Interpretation Comme nts GLUCOSE (test code = 2217) 201 MG/DL BUN (test code = 2208) 15 MG/DL CREATININE (test code = 2214) 0.55 MG/DL eGFR AMER. (test cod e = 87978) 129 ML/MIN/1.73 eGFR NON- AMER. (test code = 48470) 111 ML/MIN/1.73 CALC BUN/CREAT (test code = 2235) 27 RATIO SODIUM (test code = 2231) 136 MEQ/L POTASSIUM (test code = 2228) 4.6 MEQ/L CHLORIDE (test code = 2215) 95 MEQ/L CARBON DIOXIDE (test code = 2206) 27 MEQ/L CALCIUM (test code = 2209) 10.6 MG/DL PROTEIN, TOTAL (test code = 2229) 8.1 G/DL ALBUMIN (test code = 2201) 4.7 G/DL CALC GLOBULIN (test code = 2240) 3.4 G/DL CALC A/G RATIO (test code = 2234) 1.4 RATIO BILIRUBIN, TOTAL (test code = 2207) 0.4 MG/DL ALKALINE PHOSPHATASE (test code = 2204) 78 U/L AST (test code = 2218) 36 U/L ALT (test code = 2219) 42 U/L HEMOGLOBIN [id number] 00:00:00* Test Item Value Reference Range Interpretation Comme nts HEMOGLOBIN A1c (test code = 04780) 8.6 %"
--- NOTE | 2024-10-07 00:42 | RAD REPORT ---
EXAM DESCRIPTION: Head Brain Wo Cont RadLex: CT HEAD WITHOUT IV CONTRAST CLINICAL HISTORY: 54 years Female; DIZZINESS; Bed: TECHNIQUE: Noncontrast CT head. All CT scans at this facility use dose modulation, iterative reconstruction, and/or weight based dosi ng when appropriate to reduce radiation dose to as low as reasonably achievable. COMPARISON: None. FINDINGS: Parenchyma: No acute hemorrhage, large territorial infarction, or mass effect. Ventricles and extra-axial spaces: Appropriate for age. Visualized paranasal sinuses: Clear. Mastoid air cells: Clear. Bones: No acute focal abnormality. Additional comment: None. IMPRESSION: No acute intracranial findings. Electronically signed by: Judi Zamora MD 10/07/2024 12:38 AM CDT RP TYG Due to temporary technical issues with the PACS/Collective IP reporting system, reports are being wendy d by the in-house radiologist without review as a courtesy to ensure prompt reporting the interpreting radiologist is fully responsible for the content of the report. Transcribed Date/Time: 10/07/2024 12:41 AM
[2024-10-07] MEDS ORDERED: DIPHENHYDRAMINE 50 MG/ML VIAL ONE (00:43)
[2024-10-07] MEDS ORDERED: METOCLOPRAMIDE 10 MG/2mL INJ ONE ×2 (00:43→00:50)
[2024-10-07] MEDS ORDERED: NA CHLORIDE 0.9% 1,000 ML ONE ×2 (00:43→01:40)
[2024-10-07 01:20] LABS: Absolute Eosinophils 0.1 K/uL (0-0.5); Absolute Lymphocytes (CBC) 2.7 K/uL (0.7-4.9); Absolute Monocytes 0.5 K/uL (0.1-1.3); Absolute Neutrophil 4.3 K/uL (1.8-8.0); Basophils % 0.4 % (0-1.3); Eosinophils % 1.6 % (0-4.4); Hematocrit 39.4 % (36.0-45.0); Hemoglobin 13.6 g/dL (12.0-15.0); Lymphocytes % 34.7 % (15.3-44.8); MCH 29.7 pg (27.0-35.0); MCHC 34.5 g/dL (32.0-36.0); MCV 86.1 fL (80-100); MPV 7.7 fL (7.6-11.3); Monocytes % 6.7 % (3.3-12.3); Neutrophils % 56.6 % (41.7-73.7); Nucleated Red Blood Cells % 0.2 % (0-0); Platelets 320 thou/uL (152-406); RBC Red Blood Cell Count 4.58 M/uL (3.86-4.86)
[2024-10-07 01:23] LABS: Protime INR 0.96
[2024-10-07 01:24] LABS: Specific Gravity > 1.030 (1.005-1.030); Sqamous Epithelial <5 /HPF (None Seen); Urine Bacteria <20 /HPF (<20); Urine Bilirubin NEGATIVE (Negative); Urine Blood Negative (Negative); Urine Clarity Turbid (Clear); Urine Color Light-Yellow (Yellow); Urine Culture Reflex Order REFLEXED; Urine Glucose 4+ (Over) (Negative); Urine Ketones NEGATIVE (Negative); Urine Microscopic Reflex YN ORDER UMIC; Urine Mucus Slight /HPF (None Seen); Urine Nitrite 2+ (Negative); Urine Protein TRACE (Negative); Urine RBC <5 /HPF (None Seen); Urine Urobilinogen Normal (Normal); Urine WBC >50 /HPF (<5); Urine WBC Clump Rare /HPF (None Seen); Urine pH 5.5 (5.0-7.0)
[2024-10-07 01:36] LABS: ALT/SGPT 21 U/L (13-56); AST/SGOT < 10 U/L (15-37); Albumin 3.5 g/dL (3.4-5.0); Albumin/Globulin Ratio 0.7 (1.1-1.8); Alkaline Phosphatase 153 U/L (45-117); Anion Gap 11.6 mEq/L (5.0-15.0); BUN Blood Urea Nitrogen 19 mg/dL (7-18); Bicarbonate 26 mEq/L (21-32); Bilirubin Direct < 0.2 mg/dL (0-0.2); Bilirubin Indirect, Calculated 0.1 mg/dL (0.2-0.8); Bilirubin Total 0.3 mg/dL (0.2-1.0); Globulin 5.2 g/dL (2.3-3.5); Glomerular Filtration Rate 71 ml/min (=/>90); Magnesium 2.1 mg/dL (1.6-2.4); NT PRO-BNP 53 pg/mL (<125); Potassium 3.6 mEq/L (3.5-5.1); Protein, Total 8.7 g/dL (6.4-8.2); Sodium Level 131 mEq/L (136-145); Troponin High Sensitivity < 3.0 pg/mL (<58.9)
[2024-10-07 01:37] LABS: Glucose Level 457 mg/dL (74-106)
[2024-10-07 01:40] LABS: Thyroid Stimulating Hormone 15.6 uIU/mL (0.358-3.740)
--- NOTE | 2024-10-07 01:44 | EDPHYS ---
Physician Documentation [facility] Name: Rigo Wells Age: 54 yrs Sex: Female : 1970 Arrival Date: 10/06/2024 Time: 22:47 Bed 3 Private MD: ED Physician Sarah Valerio HPI: 10/06 23:19 This 54 yrs old Female presents to ER via Unassigned with complaints of sb4 Weakness, Headache, Vomiting. 23:19 dizziness, generalized weakness, headache since this morning. vomited 1 time. is not sb4 sure if it is maybe her blood sugar or blood pressure. states she has been diagnosed with hypertension and diabetes in the past but does not take any medications on a daily basis. denies any chest pain. Historical: - Allergies: 23:19 Morphine; kl - PMHx: 23:19 Diabetes - NIDDM; Gout; Hypertension; Thyroid problem; kl - PSHx: 23:19 Appendectomy; kl - Immunization history:: Adult Immunizations not up to date. - Infectious Disease History:: Denies. - Social history:: Smoking status: Patient denies any tobacco usage or history of. ROS: 10/07 01:05 Constitutional: Negative for fever, chills, and weight loss, sb4 Neuro: Positive for dizziness, headache, weakness, All other systems are negative, Exam: 01:06 Head/Face: Normocephalic, atraumatic. ENT: Mucous membranes moist. Cardiovascular: sb4 Regular rate and rhythm with a normal S1 and S2. Respiratory: No increased work of breathing, no retractions or nasal flaring. Abdomen/GI: Soft, non-tender, no distension. Skin: Warm, dry with normal turgor. Normal color with no rashes, no lesions, and no evidence of cellulitis. MS/ Extremity: Pulses equal, no cyanosis. Neurovascular intact. Full, normal range of motion. Neuro: Awake and alert, GCS 15, oriented to person, place, time, and situation. Motor strength 5/5 in all extremities. Sensory grossly intact. 01:06 Constitutional: The patient appears alert, awake, uncomfortable, 01:06 Eyes: Conjunctiva: injected, bilaterally, Vital Signs: 10/06 23:17 BP 157 / 93; Pulse 85; Resp 18; Temp 97(O); Pulse Ox 99% ; Weight 63.5 kg (R); Pain kl 0/10; 10/07 01:44 BP 124 / 72; Pulse 77; Resp 18; Pulse Ox 98% on R/A; km10 02:30 BP 133 / 78; Pulse 74; Resp 18 S; Pulse Ox 100% on R/A; ha1 10/06 23:17 Pain Scale: Adult kl NIH Stroke Scale Scores: 00:59 NIHSS Score: 0 ha1 MDM: 10/06 23:05 Medical Screening Exam initiated sb10/07 01:42 Data reviewed: vital signs, nurses notes, lab test result(s), radiologic studies, and sb4 as a result, I will discharge patient. Care significantly affected by the following chronic conditions: Diabetes, Hypertension. Counseling: I had a detailed discussion with the patient and/or guardian regarding the historical points, exam findings, and any diagnostic results supporting the discharge/admit diagnosis, the presence of at least one elevated blood pressure reading (>120/80) during this emergency department visit, lab results, radiology results, the need for outpatient follow up, for definitive care, to return to the emergency department if symptoms worsen or persist or if there are any questions or concerns that arise at home. 10/06 23:18 Order name: Basic Metabolic Panel; Complete Time: 01:37 sb4 10/06 23:18 Order name: CBC with Diff; Complete Time: 01:26 10/06 23:18 Order name: LFT's; Complete Time: 01:37 sb10/06 23:18 Order name: Magnesium; Complete Time: 01:37 sb4 10/06 23:18 Order name: NT PRO-BNP; Complete Time: 01:37 sb4 10/06 23:18 Order name: PT-INR; Complete Time: 01:24 sb10/06 23:18 Order name: Troponin HS; Complete Time: 01:37 sb10/06 23:21 Order name: TSH; Complete Time: 01:56 sb 10/06 23:36 Order name: Glucose, Ancillary Testing; Complete Time: 23:37 EDMS 10/06 23:58 Order name: BETA HYDROXYBUTYRATE; Complete Time: 01:31 sb4 10/06 23:58 Order name: UA Rfx Zachariah Cult if indicated; Complete Time: 01:31 sb4 10/07 01:31 Order name: Urine Culture EDFL 10/07 01:43 Order name: T4 Free; Complete Time: 01:56 EDFL 10/07 01:53 Order name: Glucose, Ancillary Testing; Complete Time: 01:56 EDFL 10/06 23:18 Order name: XRAY Chest (1 view) [facility] 10/06 23:18 Order name: Head Brain Wo Cont CT; Complete Time: 01:06 4 10/06 23:18 Order name: Cardiac monitoring; Complete Time: 00:40 [facility] 10/06 23:18 Order name: EKG - Nurse/Tech; Complete Time: 00:56 sb4 10/06 23:18 Order name: IV Saline Lock; Complete Time: 00:40 sb4 10/06 23:18 Order name: Labs collected and sent; Complete Time: 00:40 [facility] 10/06 23:18 Order name: O2 Per Protocol; Complete Time: 00:40 sb4 10/06 23:18 Order name: O2 Sat Monitoring; Complete Time: 00:40 sb4 EC:55 Rate is 78 beats/min. Rhythm is regular, Normal Sinus Rhythm. MS interval is normal at sb4 184 msec. QRS interval is normal at 80 msec. QT interval is normal at 390 msec. No Q waves. T waves are Normal. No ST changes noted. Clinical impression: Normal ECG and No evidence of ischemia. Interpreted by me. Reviewed by me. Administered Medications: 10/06 23:57 CANCELLED (Physician Discretion): mgxyloxml12 mg PO once 4 10/07 00:53 Drug: NS 0.9% IV 1000 ml IV at 1000 ml once; to be given as a bolus over 60 minutes [facility] Route: IV; Rate: 1000 ml; Site: right forearm; 01:43 Follow up: Response: No adverse reaction; Blood sugar is lowered; IV Status: Completed 10 infusion 00:53 Drug: diphenhydrAMINE IVP 25 mg IVP once Route: IVP; Site: right forearm; [facility] 01:44 Follow up: Response: No adverse reaction; Pain is decreased km10 00:54 Drug: metoCLOPramide IVP 10 mg IVP once; over 1 to 2 minutes Route: IVP; Site: right ha1 forearm; :44 Follow up: Response: No adverse reaction; Pain is decreased km10 01:43 Drug: NS 0.9% IV 1000 ml IV at 1 bolus Per protocol; to be given as a bolus over 60 km10 minutes Route: IV; Rate: 1 bolus; Site: right wrist; 02:53 Follow up: Response: No adverse reaction; IV Status: Completed infusion; IV Intake: ha1 1000ml Disposition: 06:53 Co-signature as Attending Physician, Sarah Valerio MD I agree with the assessment and gb1 plan of care. I reviewed the patient's care provided by the Advanced Practice Provider and agree with the diagnosis and treatment plan. Disposition Summary: 10/07/24 01:43 Discharge Ordered Notes: Location: Home sb4 Problem: new sb4 Symptoms: have improved sb4 Condition: Stable sb4 Diagnosis - Type 2 diabetes mellitus with hyperglycemia sb4 - UTI/ Urinary tract infection, site not specified sb4 Followup: sb4 - With: Kurtis Valdovinos DO - When: 1 week - Reason: Recheck today's complaints, Continuance of care, Re-evaluation by your physician Discharge Instructions: - Discharge Summary Sheet sb4 - Type 2 Diabetes Mellitus, Diagnosis, Adult sb4 - Hypothyroidism sb4 - Urinary Tract Infection, Adult, [id number] sb4 - Blood Glucose Monitoring, Adult sb4 Forms: - Antibiotic Education sb4 - Patient Portal Instructions sb4 - Leadership Thank You Letter sb4 Prescriptions: - Hydroxyzine HCl 25 mg Oral tablet - take 1 tablet ORAL route At bedtime As needed; 30 tablet; Refills: 0, Product sb4 Selection Permitted - Metformin 500 mg Oral Tablet - take 1 tablet ORAL route once daily for 7 days Then take 1 tablet with morning sb4 meals AND evening meals; 21 tablet; Refills: 0, Product Selection Permitted - Macrobid 100 mg Oral Capsule - take 1 capsule ORAL route every 12 hours for 7 days; 14 capsule; Refills: 0, sb4 Product Selection Permitted NIH Stroke Scale - NIH Stroke Score Date: 10/07/2024 Time: 00:59 Total Score = 0 10. Dysarthria (speech clarity - read or repeat words) - 0(Normal) 11. Extinction and Inattention (visual/tactile/auditory/spatial/personal) - 0(No abnormality) 1a. Level of Consciousness (LOC) - 0(Alert) 1b. Level of Consciousness (LOC) (Month \T\ Age) - 0(Both) 1c. LOC Commands (Open \T\ Closes Eyes/Rn Geriatric) - 0(Both) 2. Best Gaze (Lateral Gaze Paresis) - 0(Normal) 3. Visual Field Loss - 0(No visual loss) 4. Facial Palsy - 0(Normal) 5a. Left Arm: Motor (10-second hold) - 0(No drift) 5b. Right Arm: Motor (10-second hold) - 0(No drift) 6a. Left Leg: Motor (5-second hold - always test supine) - 0(No drift) 6b. Right Leg: Motor (5-second hold - always test supine) - 0(No drift) 7. Limb Ataxia (finger/nose \T\ heel/carlson - test with eyes open) - 0(Absent) 8. Sensory Loss (pinprick arms/legs/face) - 0(Normal) 9. Best Language: Aphasia (description/naming/reading) - 0(No aphasia) Initials: ha1 Signatures: Dispatcher [employer] EDMS Cassandra Salinas RN RN kl Ayala, Heidy, RN RN ha1 Clau Preston PA-C PA-C sb4 Sarah Valerio MD MD gb1 Rosita Sims RN RN km10 Corrections: (The following items were deleted from the chart) 10/06 23:19 23:19 BASIC METABOLIC PANEL+C.LAB.BRZ ordered. EDMS EDMS 23:19 23:19 CBC+H.LAB.BRZ ordered. EDMS EDMS 23:19 23:19 HEPATIC FUNCTION+C.LAB.BRZ ordered. EDMS EDMS 23:19 23:19 MAGNESIUM+C.LAB.BRZ ordered. EDMS EDMS 23:19 23:19 PROBNP+C.LAB.BRZ ordered. EDMS EDMS 23:19 23:19 PROTIME (+INR)+COAG.LAB.BRZ ordered. EDMS EDMS 23:19 23:19 Troponin High Sensitivity+C.LAB.BRZ ordered. EDMS EDMS 23:19 23:19 Chest Single View+RAD.RAD.BRZ ordered. EDMS EDMS 23:19 23:19 Head Brain Wo Cont+CT.RAD.BRZ ordered. EDMS EDMS 23:57 23:18 Meclizine PO 50 mg PO once ordered. sb4 sb4 23:59 23:59 BETA HYDROXYBUTYRATE+C.LAB.BRZ ordered. EDMS EDMS 23:59 23:59 UA Rfx Zachariah Cult if indicated+U.LAB.BRZ ordered. EDMS EDMS
--- NOTE | 2024-10-07 01:44 | ER ---
Nurse's Notes [facility] Name: Rigo Wells Age: 54 yrs Sex: Female : 1970 Arrival Date: 10/06/2024 Time: 22:47 Bed 3 Private MD: Diagnosis: Type 2 diabetes mellitus with hyperglycemia;UTI/ Urinary tract infection, site not specified Presentation: 10/06 23:17 Chief complaint: Patient states: dizziness and feeling weak at noon symptoms resolved kl but returned this evening has been diagnosed with hypertension and diabetes but quit taking medication x 2 years ago. Coronavirus screen: Vaccine status: Patient reports receiving the 2nd dose of the covid vaccine. Ebola Screen: Patient negative for fever greater than or equal to 101.5 degrees Fahrenheit, and additional compatible Ebola Virus Disease symptoms. 23:17 Method Of Arrival: Ambulatory 23:17 Acuity: JEVON 3 kl 23:20 Initial Sepsis Screen: Does the patient meet any 2 criteria? No. Patient's initial ha1 sepsis screen is negative. Does the patient have a suspected source of infection? No. Patient's initial sepsis screen is negative. Risk Assessment: Do you want to hurt yourself or someone else? Patient reports no desire to harm self or others. Onset of symptoms was October 07, 2024. Triage Assessment: 23:20 General: Appears in no apparent distress. Behavior is Smells of. Pain: Denies pain. kl Neuro: Reports dizziness. GI: Reports nausea. Historical: - Allergies: 23:19 Morphine; kl - PMHx: 23:19 Diabetes - NIDDM; Gout; Hypertension; Thyroid problem; kl - PSHx: 23:19 Appendectomy; kl - Immunization history:: Adult Immunizations not up to date. - Infectious Disease History:: Denies. - Social history:: Smoking status: Patient denies any tobacco usage or history of. Screenin/16 01:06 [facility] ED Fall Risk Assessment (Adult) History of falling in the last 3 months, ha1 including since admission No falls in past 3 months (0 pts) Confusion or Disorientation No (0 pts) Intoxicated or Sedated No (0 pts) Impaired Gait No (0 pts) Mobility Assist Device Used No (0 pt) Altered Elimination No (0 pt) Score/Fall Risk Level 0 - 2 = Low Risk Oriented to surroundings, Maintained a safe environment, Educated pt \T\ family on fall prevention, incl call for assistance when getting out of bed, Hourly rounding (assess needs \T\ fall precautionary measures) done. Abuse screen: Denies threats or abuse. Denies injuries from another. Nutritional screening: No deficits noted. Tuberculosis screening: No symptoms or risk factors identified. Assessment: 00:20 General: Appears uncomfortable, Behavior is calm, cooperative. Pain: Complains of pain ha1 in headache Pain currently is 7 out of 10 on a pain scale. Quality of pain is described as pressure, Is continuous, Alleviated by medications, rest. Neuro: Level of Consciousness is awake, alert, obeys commands, Oriented to person, place, time, situation, Reports dizziness, headache UNABLE TO SLEEP FOR THE PAST 2-3 DAYS . Cardiovascular: Respiratory: Airway is patent Respiratory effort is even, unlabored, Respiratory pattern is regular, symmetrical. GI: Abdomen is round non-distended, Reports nausea. : No signs and/or symptoms were reported regarding the genitourinary system. Musculoskeletal: Circulation, motion, and sensation intact. Range of motion: intact in all extremities. 00:59 VAN Scoring: Arm Drift: Patients demonstrates NO arm weakness. Patient is VAN Negative. ha1 01:20 Reassessment: Patient and/or family updated on plan of care and expected duration. Pain ha1 level reassessed. Patient is alert, oriented x 3, equal unlabored respirations, skin warm/dry/pink. Patient denies pain at this time. Patient states feeling better. Patient states symptoms have improved. 02:14 Reassessment: Patient and/or family updated on plan of care and expected duration. Pain ha1 level reassessed. Patient is alert, oriented x 3, equal unlabored respirations, skin warm/dry/pink. discharge pending on IV fluids to be completed. 02:49 Reassessment: Patient and/or family updated on plan of care and expected duration. Pain ha1 level reassessed. Patient is alert, oriented x 3, equal unlabored respirations, skin warm/dry/pink. Vital Signs: 10/06 23:17 BP 157 / 93; Pulse 85; Resp 18; Temp 97(O); Pulse Ox 99% ; Weight 63.5 kg (R); Pain kl 0/10; 10/07 01:44 BP 124 / 72; Pulse 77; Resp 18; Pulse Ox 98% on R/A; km10 02:30 BP 133 / 78; Pulse 74; Resp 18 S; Pulse Ox 100% on R/A; ha1 10/06 23:17 Pain Scale: Adult kl NIH Stroke Scale Scores: 00:59 NIHSS Score: 0 ha1 ED Course: 10/06 22:50 Patient arrived in ED. mr 23:02 Clau Preston PA-C is PHCP. sb4 23:02 Sarah Valerio MD is Attending Physician. sb4 23:19 Triage completed. kl 23:47 Head Brain Wo Cont CT In Process Unspecified. EDMS 23:56 XRAY Chest (1 view) In Process Unspecified. EDMS 10/07 00:20 Patient has correct armband on for positive identification. Placed in gown. Bed in low ha1 position. Call light in reach. Side rails up X 1. 00:24 Rosita Sims RN is Primary Nurse. km10 00:30 Inserted saline lock: 22 gauge in right forearm, using aseptic technique. Blood ha1 collected. Flushed with 10 mL NS. 00:55 UA Rfx Zachariah Cult if indicated Sent. ha1 00:55 BETA HYDROXYBUTYRATE Sent. ha1 00:56 Basic Metabolic Panel Sent. ha1 00:57 CBC with Diff Sent. ha1 00:57 LFT's Sent. ha1 00:57 Magnesium Sent. ha1 00:57 NT PRO-BNP Sent. ha1 00:57 PT-INR Sent. ha1 00:57 Troponin HS Sent. ha1 01:43 Kurtis Valdovinos DO is Referral Physician. sb4 01:44 Arm band placed on right wrist. km10 02:50 No provider procedures requiring assistance completed. IV discontinued, intact, ha1 bleeding controlled, No redness/swelling at site. Pressure dressing applied. 02:52 Provided Education on: FOLLOW UP WITH PCP. ha1 Administered Medications: 10/06 23:57 CANCELLED (Physician Discretion): [id number] mg PO once sb4 10/07 00:53 Drug: NS 0.9% IV 1000 ml IV at 1000 ml once; to be given as a bolus over 60 minutes ha1 Route: IV; Rate: 1000 ml; Site: right forearm; 01:43 Follow up: Response: No adverse reaction; Blood sugar is lowered; IV Status: Completed km10 infusion 00:53 Drug: diphenhydrAMINE IVP 25 mg IVP once Route: IVP; Site: right forearm; ha1 01:44 Follow up: Response: No adverse reaction; Pain is decreased 10 00:54 Drug: metoCLOPramide IVP 10 mg IVP once; over 1 to 2 minutes Route: IVP; Site: right ha1 forearm; 01:44 Follow up: Response: No adverse reaction; Pain is decreased 10 01:43 Drug: NS 0.9% IV 1000 ml IV at 1 bolus Per protocol; to be given as a bolus over 60 km10 minutes Route: IV; Rate: 1 bolus; Site: right wrist; 02:53 Follow up: Response: No adverse reaction; IV Status: Completed infusion; IV Intake: ha1 1000ml Medication: 02:52 VIS not applicable for this client. ha1 Intake: 02:53 IV: 1000ml; Total: 1000ml. ha1 Outcome: 01:43 Discharge ordered by MD. sb4 02:51 Discharged to home ambulatory, ha1 02:51 Condition: stable 02:51 Discharge instructions given to patient, Instructed on discharge instructions, follow up and referral plans. medication usage, Demonstrated understanding of instructions, follow-up care, medications, Prescriptions given X 3, 02:53 Patient left the ED. ha1 NIH Stroke Scale - NIH Stroke Score Date: 10/07/2024 Time: 00:59 Total Score = 0 10. Dysarthria (speech clarity - read or repeat words) - 0(Normal) 11. Extinction and Inattention (visual/tactile/auditory/spatial/personal) - 0(No abnormality) 1a. Level of Consciousness (LOC) - 0(Alert) 1b. Level of Consciousness (LOC) (Month \T\ Age) - 0(Both) 1c. LOC Commands (Open \T\ Closes Eyes/Hose Tubing Backer) - 0(Both) 2. Best Gaze (Lateral Gaze Paresis) - 0(Normal) 3. Visual Field Loss - 0(No visual loss) 4. Facial Palsy - 0(Normal) 5a. Left Arm: Motor (10-second hold) - 0(No drift) 5b. Right Arm: Motor (10-second hold) - 0(No drift) 6a. Left Leg: Motor (5-second hold - always test supine) - 0(No drift) 6b. Right Leg: Motor (5-second hold - always test supine) - 0(No drift) 7. Limb Ataxia (finger/nose \T\ heel/carlson - test with eyes open) - 0(Absent) 8. Sensory Loss (pinprick arms/legs/face) - 0(Normal) 9. Best Language: Aphasia (description/naming/reading) - 0(No aphasia) Initials: ha1 Signatures: Dispatcher [employer] EDCassandra Anders RN RN [facility], [facility] mr Sagrario Sprague RN RN ha1 Clau Preston PAHerbert PAHerbert sb4 Rosita Sims RN RN km10 Corrections: (The following items were deleted from the chart) 00:55 00:54 metoCLOPramide IVP 10 mg IVP in right antecubital ha1 ha1
[2024-10-07 03:11] VITALS: TEMP 97
[2024-10-07 03:18] VITALS: BP 133/78; O2SAT 100
--- NOTE | 2024-10-07 05:44 | RAD REPORT ---
EXAM: ONE VIEW CHEST X-RAY INDICATION: 54-year-old female. Dyspnea. COMPARISON: Chest x-ray report from 06/15/2023, images are currently unavailable. FINDINGS: A single PA view of the chest was obtained. No consolidation, pulmonary venous hypertension, pneumothorax, or significant pleural effusion. Cardiac silhouette is normal in size. No acute osseous abnormality. IMPRESSION: 1. No acute cardiopulmonary process. Electronically signed by: Morgan Urbina MD 10/07/2024 12:33 AM CDT Due to temporary technical issues with the PACS/[employer] reporting system, reports are being wendy d by the in-house radiologist without review as a courtesy to ensure prompt reporting the interpreting radiologist is fully responsible for the content of the report. Transcribed Date/Time: 10/07/2024 5:43 AM
--- NOTE | 2024-10-10 16:52 | EKG ---
Test Date: 2024-10-07 Test Time: 00:35:17 Financial Aid Director: MARICRUZ MEASUREMENT RESULTS: Intervals: Rate: 78 HI: 184 QRSD: 80 QT: 390 QTc: 444 [place]: P: 48 HI: 184 QRS: 1 T: 39 INTERPRETIVE STATEMENTS: Normal sinus rhythm Inferior infarct, age undetermined Abnormal ECG Compared to ECG 03/06/2015 02:03:39 Myocardial infarct finding now present T-wave abnormality no longer present Electronically Signed On 10-10-24 16:48:50 CDT by Paul Rodriguez
== END 2024-10-07 02:53 | disposition home or self-care (01) ==
LOC: ER 22:47
DX: E11.65 Type 2 diabetes mellitus with hyperglycemia (principal); N39.0 Urinary tract infection, site not specified
CPT/HCPCS: 36415; 70450; 71045; 80048; 80076; 81001; 82010; 82947; 83735; 83880; 84439; 84443; 84484; 85025; 85610; 87077; 87086; 87088; 87186; 93005; 96361; 96374; 96375; 99285; J1200; J2765; J7030

== ENCOUNTER 2025-01-08 19:45 | Emergency (ER) | payer SELFPAY ==
--- OUTSIDE RECORDS SUMMARY | 2025-01-08 19:53 | XMS REPORT | Continuity of Care Document ---
Author Name Unknown Address [address] [facility] [address] [place] [address] [facility] [place] Address [address] [facility] [place] [address] Care Team Providers Care Sterile Process Coordinator Name Role Phone LUCIANO Ma [facility] Unavailable TORSTEN MALONE Attending Clinician Unavailable PETER ARCHIBALD Attending Clinician Unavailable Peter Archibald MD Attending Clinician [phone] Doctor Unassigned, [place] Attending Clinician U ISRAEL Barraza Attending Clinician Unavaila MANUEL Salvador Attending Clinician Unavailable Manuel Lopez MD Attending Clinician [phone] Moody Arboleda MD Attending Clinician [phone] GIORGI BARRIOS Attending Clinician Unavaila Giorgi Gallegos Attending Clinician [phone] Merlene Clinton LVN Attending Clinician [phone] Isha Reyna Attending Clinician [phone] ANDRIY OCONNOR Attending Clinician Unavailable Andriy Kaur Attending Clinician [phone] Torsten Ross Attending Clinician [phone] DANG RODRÍGUEZ Attending Clinician Unavailable PAOLA CASEY Attending Clinician Unavailable Singer TRUJILLO, Paola Attending Clinician [phone] Jose [facility] [place] Luna Olsen Attending Clinician [phone] Fabienne NGUYEN, Mina Attending Clinician [phone] MINA LOVING Attending Clinician Unavailable Lien Haq DO Attending Clinician [phone] Jose Antonio Trammell MD Attending Clinician [phone] JOSE ANTONIO TRAMMELL Attending Clinician Unavailable Macario SEAY, Alaina Walsh Attending Clinician Unavailab PETER Carrillo Admitting Clinician Unavailable Cristela NGUYEN, Peter Admitting Clinician [phone] MANUEL LOPEZ Admitting Clinician Unavailable ANDRIY OCONNOR Admitting [...] Added automatic ally from request for surgery [id number] [facility] 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 [facility] Allergies, Adverse Reactions, Alerts Allergy Name Allergy Type Status Severity Reaction(s) Onset Date Inactive Date Treating Clinician Comments Source Morphine Propensi ty to adverse reaction s Active Dizziness 06-17 00:00: 00 [facility] MORPHINE DRUG INGREDI Active Dizziness 06-17 00:00: 00 [facility] Social History Social Habit Start Date Stop Date Quantity Comments Source History of tobacco use Passive smoker [facility] Exposure to SARS-CoV-2 (event) 2022-05-23 00:00:00 2022-06-02 09:22:00 Not sure [facility] Tobacco use and exposure 2022-01-21 00:00:00 2022-01-21 00:00:00 Smokeless tobacco non-user [facility] Tobacco Comment 2022-01-21 00:00:00 2022-01-21 00:00:00 Non smoker [facility] Sex Ass[birth year] At 1970 00:00:00 1970 00:00:00 [facility] Smoking Status Start Date Stop Date Source Never smoked tobacco [facility] Medications Ordered Medication Name Filled Medication Name Start Date Stop Date Current Medication? Ordering Clinician Indication Dosage Frequency Signature (SIG) Comments Components Source lidocaine (XYLOCAINE) 2 % jelly URO-JET 11 mL 06-02 19:00: 00 06-02 17:46 :00 No [id number] 11mL [facility] lactated ringers IV infusion 1,000 mL 2021-05 15:30: 00 Yes 1000mL at 75 mL/hr, 1,000 mL, IV Infusion, CONTINUOUS , Starting on Francy 05/08/22 at 0930, Until Discontinu ed, Routine, PACU [facility] HYDROcodone -acetaminop hen (NORCO 5) 5-325 mg tablet 1 tablet 2021-05 15:30: 00 05-08 16:00 :00 No 1{tbl} 1 tablet, Oral, ONCE, 1 dose, On Francy 05/08/22 at 0930, Routine, PACU [facility] HYDROmorphO ne (DILAUDID) injection 0.2 mg 2021-05 15:18: 54 Yes .2mg 0.2 mg, Slow IV Push, Q5MIN PRN, 10 doses, Starting on Francy 05/08/22 at 0918, Until Discontinu ed, Routine, Pain (scale 7-10), PACU
Us e approved by (Faculty): PACU USE -ANESTHESI A SERVICE-HY DROMORPHON E INJECTIONS [facility] FENTanyl PF (SUBLIMAZE (PF)) injection 25 mcg 2021-05 15:18: 54 Yes 25ug 25 mcg, Slow IV Push, Q5MIN PRN, 4 doses, Starting on Francy 05/08/22 at 0918, Until Discontinu ed, Routine, Pain (scale 4-6), PACU [facility] ondansetron (ZOFRAN (PF)) injection 4 mg 2021-05 15:18: 54 05-08 16:51 :00 No 4mg 4 mg, Slow IV Push, PRN, 1 dose, Starting on Francy 05/08/22 at 0918, Until Discontinu ed, Routine, Nausea and Vomiting (N/V), PACU [facility] iohexoL (OMNIPAQUE 300-50 mL)) injection 2021-05 15:00: 00 05-08 15:39 :04 No PRN, Starting on Francy 05/08/22 at 0900, Until Francy 05/08/22 at 0939, Routine, Intra-op [facility] acetaminoph en 325 mg tablet 2021-05 00:00: 00 06-02 00:00 :00 No [id number] 650mg Take 2 tablets by mouth every 6 (six) hours as needed for Pain (scale 1-3) or Alternate with ibuprofen for pain scale 4-6. [facility] ibuprofen 600 mg tablet 2021-05 00:00: 00 06-02 00:00 :00 No [id number] 600mg Take 1 tablet by mouth every 6 (six) hours as needed for Pain (scale 4-6). [facility] sulfamethox azole-trime thoprim (BACTRIM DS) 800-160 mg per tablet 2021-05 00:00: 00 06-02 00:00 :00 No [id number] 1{tbl} Take 1 tablet by mouth 2 (two) times daily. [facility] tamsulosin 0.4 mg 24 hr capsule 2021-05 00:00: 00 06-02 00:00 :00 No [id number] .4mg Take 1 capsule by mouth daily. [facility] tc 99m-mertiat cholo (TECHNESCAN MAG3) injection 9.4 millicurie 02-14 16:30: 00 02-14 16:20 :00 No [id number] 9.4mCi 9.4 millicurie , Intravenou s, ONCE, 1 dose, On Thu02/14/22 at 1130, Routine [facility] sennosides 8.6 mg tablet 01-25 00:00: 00 02-25 04:59 :00 No [id number] 8.6mg Take 1 tablet by mouth daily for 30 days. [facility] ondansetron 4 mg disintegrat ing tablet 01-24 00:00: 00 06-02 00:00 :00 No [id number] 4mg Take 1 tablet by mouth every 8 (eight) hours as needed for Nausea and Vomiting (N/V) for up to 30 doses. [facility] acetaminoph en 325 mg tablet 01-24 00:00: 00 05-08 00:00 :00 No [id number] 650mg Take 2 tablets by mouth every 6 (six) hours. [facility] sulfamethox azole-trime thoprim (BACTRIM DS) 800-160 mg per tablet 01-24 00:00: 00 02-06 04:59 :00 No [id number] 1{tbl} Take 1 tablet by mouth 2 (two) times daily for 12 days. [facility] gabapentin 300 mg capsule 01-24 00:00: 00 02-04 04:59 :00 No [id number] 300mg Take 1 capsule by mouth 3 (three) times daily for 10 days. [facility] Dose Unknown 01-07 00:00: 00 No TAKE [...] 00:00: 00 No TAKE 1 TABLET DAILY. 0 8 00:00: 00 No 300 Dose Unknown 0 8 00:00: 00 No Dose Unknown 0 8 00:00: 00 No Dose Unknown 0 8 00:00: 00 No Dose Unknown 0 12-23 00:00: 00 No Dose Unknown 0 12-23 00:00: 00 No TAKE 1 TABLET DAILY. 0 12-23 00:00: 00 No 300 Actos 45 [...] 00 No 2gram Actos 30 mg tablet 0 10-18 00:00: 00 No 1mg lisinopril 5 [...] 10 mg tablet, extended release 24 hr 0 10-18 00:00: 00 No 1mg atorvastati n [...] No 1mcg levothyroxi ne 125 mcg tablet 2022-0 2-02 00:00: 00 No 1mcg fenofibrate nanocrystal [...] M (BROMFED DM) 2-30-10 mg/5 mL syrup - 00:00: 00 Yes [id number] 5mL Take 5 mL by mouth 4 (four) times daily as needed for Congestion /Allergies . [facility] tamsulosin 0.4 mg capsule - 00:00: 00 No 1mg tamsulosin 0.4 mg capsule 11-28 00:00: 00 No 1mg cephALEXin (KEFLEX) 500 mg capsule -16 00:00: 00 01-24 00:00 :00 No [id number] 500mg Take 1 capsule by mouth 4 (four) times daily. [facility] ibuprofen 600 mg tablet 08-07 00:00: 00 01-24 00:00 :00 No [id number] 600mg Take 1 tablet by mouth every 8 (eight) hours as needed for Pain (scale 4-6). [facility] allopurinol 300 mg tablet - 00:00: 00 No 1mg Actos 30 mg tablet - 00:00: 00 No 1mg metformin ER 1,000 mg 24 hr tablet,exte nded release (gastric) - 00:00: 00 No 1mg glipizide ER 10 mg tablet, extended release 24 hr - 00:00: 00 No 1mg ibuprofen 800 mg [...] No 2mg levothyroxi ne 112 mcg tablet 2 00:00: 00 No 1mcg Macrobid 100 mg capsule 07-06 00:00: 00 No 1mg ibuprofen 600 mg tablet 06-18 00:00: 00 01-24 00:00 :00 No [id number] 600mg Take 1 tablet by mouth every 6 (six) hours as needed for Pain (scale 4-6). [facility] Augmentin 875 mg-125 mg tablet 2019-05 00:00: [...] No 1mg atorvastati n 40 mg tablet 2019-0524 00:00: 00 No 2mg levothyroxi ne 112 mcg tablet 20 00:00: 00 No 1mcg levothyroxi ne 112 mcg tablet 20 00:00: 00 No 1mcg atorvastati n 40 mg tablet 15 00:00: 00 No 1mg allopurinol 300 mg [...] No 1mg atorvastati n 40 mg tablet 15 00:00: 00 No 1mg allopurinol 300 mg [...] No 1mg hydroxyzine HCl 50 mg tablet 2020-0 5-12 00:00: 00 No 1mg glipizide ER 10 mg tablet, extended release 24 hr 0 -06 00:00: 00 No 1mg glipizide ER 10 mg tablet, extended release 24 hr 06 00:00: 00 No 1mg hydroxyzine HCl 50 mg tablet 4- 00:00: 00 No 1mg hydroxyzine HCl 50 mg tablet 4 00:00: 00 No 1mg atorvastati n 40 [...] to affected area(s) 3 (three) times daily. [facility] Vital Signs Vital Name Observation Time Observation Value Comments S ron Systolic blood pressure 2022-06-02 15:37:00 116 mm[Hg] [facility] Diastolic blood pressure 2022-06-02 15:37:00 76 mm[Hg] [facility] Heart rate 2022-06-02 15:37:00 68 /min [facility] Body temperature 2022-06-02 15:37:00 36.67 Kortney [facility] Respiratory rate 2022-06-02 15:37:00 16 /min [facility] Body height 2022-06-02 15:37:[address] [facility] Body weight 2022-06-02 15:37:[address] [facility] BMI 2022-06-02 15:37:00 23.56 kg/m2 [facility] Oxygen saturation in Arterial blood by Pulse oximetry 2022-06-02 15:37:00 99 /min [facility] Systolic blood pressure 2022-05-08 16:30:00 124 mm[Hg] [facility] Diastolic blood pressure 2022-05-08 16:30:00 97 mm[Hg] [facility] Respiratory rate 2022-05-08 16:30:00 14 /min [facility] Oxygen saturation in Arterial blood by Pulse oximetry 2022-05-08 16:30:00 98 /min [facility] Body temperature 2022-05-08 15:30:00 36.06 Kortney [facility] Heart rate 2022-05-08 11:24:00 73 /min [facility] Body height 2022-05-08 11:24:[address] [facility] Body weight 2022-05-08 11:24:[address] [facility] BMI 2022-05-08 11:24:00 24.13 kg/m2 [facility] Systolic blood pressure 2022-05-08 11:24:00 125 mm[Hg] [facility] Diastolic blood pressure 2022-05-08 11:24:00 73 mm[Hg] [facility] Heart rate 2022-05-08 11:24:00 73 /min [facility] Body temperature 2022-05-08 11:24:00 36.28 Kortney [facility] Respiratory rate 2022-05-08 11:24:00 18 /min [facility] Body height 2022-05-08 11:24:[address] [facility] Body weight 2022-05-08 11:24:[address] [facility] BMI 2022-05-08 11:24:00 24.13 kg/m2 [facility] Oxygen saturation in Arterial blood by Pulse oximetry 2022-05-08 11:24:00 97 /min [facility] Systolic blood pressure 2022-04-21 21:00:00 125 mm[Hg] [facility] Diastolic blood pressure 2022-04-21 21:00:00 88 mm[Hg] [facility] Heart rate 2022-04-21 21:00:00 97 /min [facility] Respiratory rate 2022-04-21 21:00:00 17 /min [facility] Oxygen saturation in Arterial blood by Pulse oximetry 2022-04-21 21:00:00 100 /min [facility] Body temperature 2022-04-21 17:00:00 36.56 Kortney [facility] Body weight 2022-04-21 17:00:[address] [facility] BMI 2022-04-21 17:00:00 21.63 kg/m2 [facility] Systolic blood pressure 2022-03-31 19:00:00 121 mm[Hg] [facility] Diastolic blood pressure 2022-03-31 19:00:00 74 mm[Hg] [facility] Heart rate 2022-03-31 19:00:00 74 /min [facility] Body temperature 2022-03-31 19:00:00 36.67 Kortney [facility] Respiratory rate 2022-03-31 19:00:00 18 /min [facility] Oxygen saturation in Arterial blood by Pulse oximetry 2022-03-31 19:00:00 98 /min [facility] Body weight 2022-03-31 17:14:[address] [facility] BMI 2022-03-31 17:14:00 21.63 kg/m2 [facility] BP Systolic 2022-01-31 11:20:00 129 mm[Hg] BP Diastolic 2022-01-31 11:20:00 80 mm[Hg] Weight Measured 2022-01-31 11:20:00 130.40 pounds Height Measured 2022-01-31 11:20:00 62.50 inches Body Temperature 2022-01-31 11:20:00 98.20 degrees Heart Rate 2022-01-31 11:20:00 98.20 /min Respiratory Rate 2022-01-31 11:20:00 Systolic blood pressure 2022-01-25 13:00:00 116 mm[Hg] [facility] Diastolic blood pressure 2022-01-25 13:00:00 70 mm[Hg] [facility] Heart rate 2022-01-25 13:00:00 55 /min [facility] Body temperature 2022-01-25 13:00:00 36.44 Kortney [facility] Respiratory rate 2022-01-25 13:00:00 20 /min [facility] Oxygen saturation in Arterial blood by Pulse oximetry 2022-01-25 13:00:00 98 /min [facility] Body height 2022-01-23 18:31:[address] [facility] Body weight 2022-01-23 18:31:[address] [facility] BMI 2022-01-23 18:31:00 21.63 kg/m2 [facility] BP Systolic 2021-12-23 08:27:00 125 mm[Hg] [...] AND SURGICAL PROCEDURES 2022-06-02 06:01:00 Doctor Unassigned, [place] [facility] FL TIME OR (NON-REPORTABLE) 2022-05-08 15:14:00 David Wyatt [facility] FL TIME OR (NON-REPORTABLE) 2022-05-08 15:14:00 David Wyatt [facility] URINE CULTURE 2022-05-08 14:40:00 Peter Archibald [facility] URETEROSCOPIC STONE MANIPULATION 2022-05-08 13:05:00 Peter Archibald [facility] CONSENT/REFUSAL FOR DIAGNOSIS AND TREATMENT 2022-05-08 11:11:41 Doctor Unassigned, [place] [facility] CONSENT/REFUSAL FOR DIAGNOSIS AND TREATMENT 2022-05-08 11:11:41 Doctor Unassigned, [place] [facility] ASSIGNMENT OF BENEFITS 2022-05-08 11:10:51 Docto r Unassigned, [place] [facility] ASSIGNMENT OF BENEFITS 2022-05-08 11:10:51 Docto r Unassigned, [place] [facility] CT ABDOMEN PELVIS WO CONTRAST 2022-04-21 19:20:00 Manuel Lopez [facility] COMP. METABOLIC PANEL (19852) 2022-04-21 18:10:00 Manuel Lopez [facility] CBC WITH DIFF 2022-04-21 18:10:00 [facility] CONSENT/REFUSAL FOR DIAGNOSIS AND TREATMENT 2022-04-21 17:00:43 Doctor Unassigned, [place] [facility] EMERGENCY SERVICES AGREEMENTS AND AUTHORIZATIONS 2022-04-21 06:01:00 Doctor Unassigned, [place] [facility] EMERGENCY SERVICES AGREEMENTS AND AUTHORIZATIONS 2022-04-21 06:01:00 Doctor Unassigned, [place] [facility] CONSENT/REFUSAL FOR DIAGNOSIS AND TREATMENT 2022-03-31 17:13:14 Doctor Unassigned, [place] [facility] NM RENAL FLOW FUNCTION WITHOUT PHARMACOLOGICAL INTERVENTION 2022-02-14 17:10:00 Bishnu James [facility] POCT GLUCOSE (AUTOMATED) 2022-01-25 01:31:00 Cristela [facility] POCT GLUCOSE (AUTOMATED) 2022-01-24 22:17:00 Cristela [facility] URINE CULTURE 2022-01-24 13:55:00 Valarie Goldman [facility] POCT GLUCOSE (AUTOMATED) 2022-01-24 10:46:00 Cristela [facility] POCT GLUCOSE (AUTOMATED) 2022-01-24 04:34:00 Cristela [facility] POCT GLUCOSE (AUTOMATED) 2022-01-23 22:44:00 Cristela [facility] BASIC METABOLIC PANEL (NA, K, CL, CO2, GLUCOSE, BUN, CREATININE, CA) 2022-01-23 16:14:00 Bishnu James [facility] CBC WITH DIFF 2022-01-23 16:13:00 Bishnu James [facility] POCT GLUCOSE (AUTOMATED) 2022-01-23 13:10:00 Cristela [facility] CBC WITH DIFF 2022-01-22 20:47:00 David Wyatt [facility] PROTHROMBIN TIME / INR 2022-01-22 05:42:00 Kolby Arboleda [facility] COVID-19 (ID NOW RAPID TESTING) 2022-01-21 23:37:00 Isha Mohamud [facility] LAB ONLY COVID INTERPRETATION 2022-01-21 23:37:00 Isha Mohamud [facility] URINE CULTURE 2022-01-21 21:48:[address] [facility] CT ABDOMEN PELVIS WO CONTRAST 2022-01-21 20:48:34 Isha Mohamud [facility] URINALYSIS 2022-01-21 20:37:00 Isha Mohamud [facility] HB ECG ROUTINE & RHYTHM STRIP 2022-01-21 20:29:33 Isha Mohamud [facility] CBC WITH DIFF 2022-01-21 20:26:[address] [facility] COMP. METABOLIC PANEL (52228) 2022-01-21 20:26:00 Isha Mohamud [facility] CONSENT/REFUSAL FOR DIAGNOSIS AND TREATMENT 2022-01-21 20:03:01 Doctor Unassigned, [place] [facility] HOSPITAL ADMISSION 2022-01-21 05:01:00 Doctor Un assigned, [place] [facility] Plan of Care Planned Activity Planned Date Details Comments Source Goal Plan of Care Note [code = 50274-6] Goal Plan of Care Note [code = 42387-0] Goal Plan of Care Note [code = 51935-1] Goal Plan of Care Note [code = 49316-3] Goal Plan of Care Note [code = 47456-3] Goal Plan of Care Note [code = 12628-1] Goal Plan of Care Note [code = 72535-0] Goal Plan of Care Note [code = 96953-1] Goal Plan of Care Note [code = 29060-1] Goal Plan of Care Note [code = 31054-9] Goal Plan of Care Note [code = 81265-6] Goal Plan of Care Note [code = 07675-0] Goal Plan of Care Note [code = 51500-9] Goal Plan of Care Note [code = 13324-4] Goal Plan of Care Note [code = 36265-1] Goal Plan of Care Note [code = 00286-5] Goal Plan of Care Note [code = 95276-4] Goal Plan of Care Note [code = 84442-7] Goal Plan of Care Note [code = 79934-2] Goal Plan of Care Note [code = 15626-4] Goal Plan of Care Note [code = 81729-9] Goal Plan of Care Note [code = 66998-8] Goal Plan of Care Note [code = 81029-0] Goal Plan of Care Note [code = 55355-0] Goal Plan of Care Note [code = 63775-7] Goal Plan of Care Note [code = 46013-5] Goal Plan of Care Note [code = 80823-7] Goal Plan of Care Note [code = 42615-4] Goal Plan of Care Note [code = 54813-0] Goal Plan of Care Note [code = 64991-1] Goal Plan of Care Note [code = 66076-1] Goal Plan of Care Note [code = 03309-5] Goal Plan of Care Note [code = 86988-0] Goal Plan of Care Note [code = 15911-9] Goal Plan of Care Note [code = 43963-3] Goal Plan of Care Note [code = 52285-2] Goal Plan of Care Note [code = 19498-7] Goal Plan of Care Note [code = 06992-4] Goal Plan of Care Note [code = 95586-6] Goal Plan of Care Note [code = 92720-2] Goal Plan of Care Note [code = 34778-3] Encounters Start Date/Time End Date/Time Encounter Type Admission Type Attending [facility] Facility Care Department Encounter ID Source 2021-06-17 18:05:41 Emergency TORSTEN MALONE [facility] [id number] [facility] 2024-08-10 09:19:59 2024-08-10 09:19:59 Outpatient SFA SFA [id number] Luciano Francesca Jason 2024-07-06 10:03:26 2024-07-06 10:03:26 Outpatient SFA SFA [id number] Luciano Francesca Jason 2024-04-25 10:30:21 2024-04-25 10:30:21 Outpatient SFA SFA [id number] Luciano Francesca Jason 2024-03-30 09:30:56 2024-03-30 09:30:56 Outpatient SFA SFA [id number] Luciano Francesca Jason 2024-03-01 10:23:47 2024-03-01 10:23:47 Outpatient SFA SFA [id number] Luciano Francesca Jason 2024-01-26 09:51:44 2024-01-26 09:51:44 Outpatient SFA SFA [id number] Luciano Gomez 2023-12-30 14:36:56 2023-12-30 14:36:56 Outpatient SFA SFA [id number] Luciano Gomez 2023-10-29 09:11:39 2023-10-29 09:11:39 Outpatient SFA SFA [id number] Luciano Gomez 2023-09-23 10:28:07 2023-09-23 10:28:07 Outpatient SFA SFA [id number] Luciano Gomez 2023-08-24 17:34:55 2023-08-24 17:34:55 Outpatient SFA SFA [id number] Luciano Gomez 2023-07-07 15:39:19 2023-07-07 15:39:19 Outpatient SFA SFA [id number] Luciano Gomez 2023-06-22 08:26:01 2023-06-22 08:26:01 Outpatient SFA SFA [id number] Luciano Gomez 2023-05-04 09:36:51 2023-05-04 09:36:51 Outpatient SFA SFA [id number] Luciano Gomez 2023-04-01 14:47:48 2023-04-01 14:47:48 Outpatient SFA SFA [id number] Luciano Gomez 2023-02-24 11:02:11 2023-02-24 11:02:11 Outpatient SFA SFA [id number] Luciano Gomez 2023-01-21 15:38:12 2023-01-21 15:38:12 Outpatient SFA SFA [id number] Luciano Ma Jason 2022-07-14 00:00:00 2022-07-14 00:00:00 Outpatient R PETER ARCHIBALD [facility] [id number] [facility] 2022-06-02 10:15:00 2022-06-02 10:15:00 Office Visit Peter Archibald [facility] [id number] 350.1.13.10 [id number] [id number] [facility] 2022-06-02 10:15:00 2022-06-02 10:13:31 Outpatient R PETER ARCHIBALD [facility] [id number] [facility] 2022-06-02 00:00:00 2022-06-02 00:00:00 Orders Only Doctor Unassigned, [place] [facility] 1.2.840.114 350.1.13.10 4.2.7.2.686 [id number] [facility] 2022-05-08 05:10:00 2022-05-08 11:53:00 Outpatient R [facility] [id number] [facility] 2022-05-08 05:10:00 2022-05-08 11:53:00 Hospital Encounter [facility] [id number] 350.1.13.10 4.2.7.2.686 [id number] [facility] 2022-05-08 07:00:00 2022-05-08 09:03:00 Surgery [facility] [id number] 350.1.13.10 4.2.7.2.686 [id number] [facility] 2022-04-21 11:03:00 2022-04-21 15:56:00 Emergency X MANUEL LOPEZ [facility] [id number] [facility] 2022-04-21 11:03:00 2022-04-21 15:56:00 Emergency Manuel Lopez [facility] 1.2.840.114 350.1.13.10 4.2.7.2.686 [id number] [facility] 2022-04-21 00:00:00 2022-04-21 00:00:00 Case Management [facility] 1.2.840.114 350.1.13.10 4.2.7.2.686 [id number] [facility] 2022-03-31 11:16:00 2022-03-31 13:03:00 Emergency X GIORGI BARRIOS [facility] [id number] [facility] 2022-03-31 11:16:00 2022-03-31 13:03:00 Emergency Giorgi Barrios [facility] 1..840.114 350.1.13.10 4.2.7.2.686 [id number] [facility] 2022-02-14 10:56:16 2022-02-14 23:59:00 Outpatient Karen ARCHIBALD [facility] [id number] [facility] 2022-02-14 10:56:16 2022-02-14 23:59:00 Hospital Encounter Peter Archibald [facility] 1..840.114 350.1.13.10 4.2.7.2.686 [id number] [facility] 2022-02-12 00:00:00 2022-02-12 00:00:00 Outpatient Karen ARCHIBALD [facility] [id number] [facility] 2022-01-31 00:00:00 2022-01-31 00:00:00 Outpatient Visit [id number] 2022-01-28 00:00:00 2022-01-28 00:00:00 Transition of Care Merlene Clinton 1..840.114 350.1.13.10 4.2.7.2.686 [id number] [facility] 2022-01-21 15:18:00 2022-01-25 11:00:00 Inpatient X KEVINPETER COHEN [facility] [id number] [facility] 2022-01-21 15:18:00 2022-01-25 11:00:00 Hospital Encounter Isha Mohamud Joseph 1.2.840.1 [id number] [facility] 2022-01-21 15:18:00 2022-01-25 11:00:00 Inpatient X PETER ARCHIBALD [facility] [id number] [facility] 2022-01-21 00:00:00 2022-01-21 00:00:00 Travel 1.2.840.1 [id number] .[id number] .8 1.2.840.114 350.1.13.10 4.2.7.3.698 [id number] [facility] 2021-12-23 00:00:00 2021-12-23 00:00:00 Outpatient Visit [id number] 2021-10-08 13:44:00 2021-10-08 16:35:00 Emergency X ANDRIY OCONNOR RUST ERT [id number] [facility] 2021-10-08 13:44:00 2021-10-08 16:35:00 Emergency Andriy Oconnor [facility] 1.2840.114 350.1.13.10 4.2.7.2.686 [id number] 084 [id number] [facility] 2021-10-08 00:00:00 2021-10-08 00:00:00 Orders Only Doctor Unassigned, [place] [facility] 1.2.840.114 350.1.13.10 4.2.7.2.686 [id number] 009 [id number] [facility] 2021-06-17 11:28:00 2021-06-17 12:43:00 Emergency X TORSTEN MALONE RUST ERT [id number] [facility] 2021-06-17 11:28:00 2021-06-17 12:43:00 Emergency Torsten Malone [facility] 1.2.840.114 350.1.13.10 4.2.7.2.686 [id number] 084 [id number] [facility] 2021-05-13 15:00:00 2021-05-13 15:00:00 Outpatient R DANG RODRÍGUEZ [facility] [id number] [facility] 2021-03-30 18:02:00 2021-03-30 20:39:00 Emergency X SIMÓN CASEYIP RUST ERT [id number] [facility] 2021-03-30 18:02:00 2021-03-30 20:39:00 Emergency Paola Casey [facility] 1.2.840.114 350.1.13.10 4.2.7.2.686 [id number] 084 [id number] [facility] 2021-03-30 00:00:00 2021-03-30 00:00:00 Orders Only Doctor Unassigned, [place] [facility] 1.2.840.114 350.1.13.10 4.2.7.2.686 [id number] 009 [id number] [facility] 2021-01-08 00:00:00 2021-01-08 00:00:00 Patient Outreach Luna [facility] 1.2840.114 350.1.13.10 4.2.7.2.686 [id number] [facility] 2021-01-07 14:10:01 2021-01-07 15:11:04 [facility] 1.2840.114 350.1.13.10 4.2.7.2.686 [id number] [facility] 2021-01-07 14:00:00 2021-01-07 15:11:04 Outpatient R MINA LOVING [facility] [id number] [facility] 2021-01-07 00:00:00 2021-01-07 00:00:00 Orders Only Doctor Unassigned, [place] [facility] 1.2.840.114 350.1.13.10 4.2.7.2.686 [id number] 009 [id number] [facility] 2020-12-17 12:49:00 2020-12-17 14:30:00 Emergency Lien Haq Christina [facility] 1.2.840.114 350.1.13.10 4.2.7.2.686 [id number] [id number] [facility] 2020-12-17 12:28:00 2020-12-17 12:28:00 Emergency X RUST ERT [id number] [facility] 2020-08-07 10:09:00 2020-08-07 13:37:00 Emergency Jp Jose Antonio [facility] 1.2.840.114 350.1.13.10 4.2.7.2.686 [id number] 084 [id number] 2020-08-07 10:09:00 2020-08-07 13:37:00 Emergency Trammell [facility] 1.2.840.114 350.1.13.10 4.2.7.2.686 [id number] 084 [id number] [facility] 2020-08-07 10:09:00 2020-08-07 10:09:00 Emergency X JP [facility] ERT [id number] [facility] 2020-08-07 00:00:00 2020-08-07 00:00:00 Orders Only Doctor Unassigned, [place] [facility] 1.2.840.114 350.1.13.10 4.2.7.2.686 [id number] [id number] 2020-08-07 00:00:00 2020-08-07 00:00:00 Orders Only Doctor Unassigned, [place] [facility] 1.2.840.114 350.1.13.10 4.2.7.2.686 [id number] [id number] [facility] 2020-06-19 00:00:00 2020-06-19 00:00:00 Letter (Out) Macario, [facility] 1.2.840.114 350.1.13.10 4.2.7.2.686 [id number] 019 [id number] 2020-06-19 00:00:00 2020-06-19 00:00:00 Letter (Out) Macario, [facility] 1.2.840.114 350.1.13.10 4.2.7.2.686 [id number] [id number] [facility] 2020-06-18 09:53:00 2020-06-18 12:37:00 Emergency Isha Mohamud [facility] 1.2.840.114 350.1.13.10 4.2.7.2.686 [id number] 084 [id number] 2020-06-18 09:53:00 2020-06-18 12:37:00 Emergency Isha Mohamud [facility] 1.2.840.114 350.1.13.10 4.2.7.2.686 [id number] 084 [id number] [facility] 2020-06-18 09:40:00 2020-06-18 09:40:00 Emergency X RUST ERT [id number] [facility] 2019-10-19 10:35:25 2019-10-19 12:39:00 Emergency Andriy Oconnor [facility] 1.2.840.114 350.1.13.10 4.2.7.2.686 [id number] 084 [id number] 2019-10-19 10:35:2019-10-19 12:39:00 Emergency Andriy Oconnor [facility] 1.2.840.114 350.1.13.10 4.2.7.2.686 [id number] 084 [id number] [facility] 2019-10-19 09:02:00 2019-10-19 09:02:00 Emergency X RUST ERT [id number] [facility] 2019-10-19 00:00:00 2019-10-19 00:00:00 Orders Only Doctor Unassigned, [place] [facility] 1.2.840.114 350.1.13.10 4.2.7.2.686 [id number] 009 [id number] 2019-10-19 00:00:00 2019-10-19 00:00:00 Orders Only Doctor Unassigned, [place] [facility] 1.2.840.114 350.1.13.10 4.2.7.2.686 [id number] 009 [id number] [facility] Results Test Description Test Time Test Comments Results Result Co mments Source [facility] WITH [id number] 18:26:39* Test Item Value Reference Range Interpretation Comme nts WBC (test code = 6690-2) See_Comment [Automated [employer]] The system which generated this result transmitted reference range: 4.30 - 11.10 10*3/?L. The reference range was not used to interpret this result as normal/abnormal. RBC (test code = 789-8) See_Comment [Automated [employer] ge] The system which generated this result [...] 34.4 g/dL 31.6-35.1 RDW-SD (test code = 06960-2) 40.7 fL 39.0-49.9 RDW-CV (test code = 788-0) 13.1 % 12.0-15.5 PLT (test code = 777-3) See_Comment [Automated messa ge] The system which generated this result transmitted reference range: 166 - 358 10*3/?L. The reference range was not used to interpret this result as normal/abnormal. MPV (test code = 74962-7) 9.2 fL 9.5-12.9 L NRBC/100 WBC (test code = 2297950969) See_Comment [Automated [employer] ssage] The system which generated this result transmitted reference range: 0.0 - 10.0 /100 WBCs. The reference range was not used to interpret this result as normal/abnormal. NRBC x10^3 (test code = 7071948525) See_Comment [Automated messa ge] The system which generated this result transmitted reference range: 10*3/?L. The reference range was not used to interpret this result as normal/abnormal. GRAN MAT (NEUT) % (test code = 770-8) 55.6 % IMM GRAN % (test code = 0993135966) 0.70 % LYMPH % (test code = 736-9) 36.1 % MONO % (test code = 5905-5) 5.4 % EOS % (test code = 713-8) 1.6 % BASO % (test code = 706-2) 0.6 % GRAN MAT x10^3(ANC) (test code = 7155688260) 3.94 10*3/uL 1.88-7.09 IMM GRAN x10^3 (test code = 0004415549) 0.05 10*3/uL 0.00-0.06 LYMPH x10^3 (test code = 731-0) 2.55 10*3/uL 1.32-3.29 MONO x10^3 (test code = 742-7) 0.38 10*3/uL 0.33-0.92 EOS x10^3 (test code = 711-2) 0.11 10*3/uL 0.03-0.39 BASO x10^3 (test code = 704-7) 0.04 10*3/uL 0.01-0.07 Lab Interpretation (test code = 26861-3) [facility] 01:32:37* Test Item Value Reference Range Interpretation Comme [facility] POCT GLU (test code = 8374280780) 241 mg/dL 70-110 H Lab Interpretation (test cod e = 64016-7) Abnormal [facility] METABOLIC PANEL (NA, K, CL, CO2, GLUCOSE, BUN, CREATININE, CA)2022-01-23 16:39:19* Test Item Value Reference Range Interpretation Comme [facility] NA (test code = 8068277639) 135 mmol/L 135-145 K (test code = 4047919706) 4.1 mmol/L 3.5-5 CL (test code = 4151223336) 102 mmol/L 98-108 CO2 TOTAL (test code = 3192679768) 31 mmol/L 23-31 AGAP (test code = 1734343583) 2-16 BUN (test code = 8668009558) 8 mg/dL 7-23 GLUCOSE (test code = 3709445961) 183 mg/dL 70-110 H CREATININE (test code = 5955130772) 0.51 mg/dL 0.5-1.04 CALCIUM (test code = 0760227998) 8.9 mg/dL 8.6-10.6 eGFR (test code = 1734399912) mL/min/1.73m2 SALVADOR (test code = SALVADOR) Association [...] imaging tests). Lab Interpretation (test code = 87009-2) Abnormal [facility] WITH [id number] 16:28:38* Test Item Value Reference Range Interpretation Comme nts WBC (test code = 6690-2) See_Comment L [Automated [employer]] The system which generated this result transmitted reference range: 4.30 - 11.10 10*3/?L. The reference range was not used to interpret this result as normal/abnormal. RBC (test code = 789-8) See_Comment L [Automated [employer]] The system which generated this result transmitted [...] 34.1 g/dL 31.6-35.1 RDW-SD (test code = 31086-6) 36.1 fL 39-49.9 L RDW-CV (test code = 788-0) 11.9 % 12-15.5 L PLT (test code = 777-3) See_Comment [Automated [employer]] The system which generated this result transmitted reference range: 166 - 358 10*3/?L. The reference range was not used to interpret this result as normal/abnormal. MPV (test code = 46827-8) 9.1 fL 9.5-12.9 L NRBC/100 WBC (test code = 4975252867) See_Comment [Automated me ssage] The system which generated this result transmitted reference range: 0.0 - 10.0 /100 WBCs. The reference range was not used to interpret this result as normal/abnormal. NRBC x10^3 (test code = 4741995293) See_Comment [Automated messa ge] The system which generated this result transmitted reference range: 10*3/?L. The reference range was not used to interpret this result as normal/abnormal. GRAN MAT (NEUT) % (test code = 770-8) 58.5 % IMM GRAN % (test code = 5031261432) 0.60 % LYMPH % (test code = 736-9) 31.8 % MONO % (test code = 5905-5) 8.2 % EOS % (test code = 713-8) 0.3 % BASO % (test code = 706-2) 0.6 % GRAN MAT x10^3(ANC) (test code = 0595788437) 2.06 10*3/uL 1.88-7.09 IMM GRAN x10^3 (test code = 6089791880) 0-0.06 LYMPH x10^3 (test code = 731-0) 1.12 10*3/uL 1.32-3.29 L MONO x10^3 (test code = 742-7) 0.29 10*3/uL 0.33-0.92 L EOS x10^3 (test code = 711-2) 0.03-0.39 L BASO x10^3 (test code = 704-7) 0.01-0.07 Lab Interpretation (test code = 98055-4) [facility]normal [facility] URINE, RANDOM 2021-10-19 06:55:29* Test Item Value Reference Range Interpretation Comme nts CREATININE, URINE, RANDOM (test code = 2072) 63.0 MG/DL NOT ESTAB ALBUMIN, URINE, RANDOM (test code = 10602) 3.6 MG/DL NOT ESTAB CALC ALBUMIN/CREAT, RND (test code = 09632) 57 MG/G <30 H Note: Albumin/Cr eatinine ratio reference interval reflects ADA and NKF guidelines. UNLESS OTHERWISE INDICATED, ALL TESTING PERFORMED [facility] [employer] [address] [place] [address] OCCUPATIONAL THERAPIST ASSISTANTS: STEVIE PRADO M.D. CLIA NUMBER [id number] [place]. [id number] TSH, THIRD [id number] 06:38:12* Test Item Value Reference Range Interpretation Comme nts TSH, THIRD GENERATION (test code = 2821) 7.810 UIU/ML 0.400-4.100 H COMPREHENSIVE METABOLIC [id number] 04:17:29* Test Item Value Reference Range Interpretation Comme nts GLUCOSE (test code = 2217) 152 MG/DL 70-99 H BUN (test code = 8) 13 MG/DL 6-20 CREATININE (test code = 2214) 0.59 MG/DL 0.60-1.30 L eGFR (2020 CKD-EPI) (test code = 16062) 108 ML/MIN/1.73 >60 CALC BUN/CREAT (test code = 2235) 22 RATIO 6-28 SODIUM (test code = 2231) 139 MEQ/L 133-146 POTASSIUM (test code = 2228) 4.1 MEQ/L 3.5-5.4 CHLORIDE (test code = 2215) 98 MEQ/L 95-107 CARBON DIOXIDE (test code = 2206) 25 MEQ/L 19-31 CALCIUM (test code = 2209) 10.3 MG/DL 8.5-10.5 PROTEIN, TOTAL (test code = 222) 8.3 G/DL 6.1-8.3 ALBUMIN (test code = 2201) 4.9 G/DL 3.5-5.2 CALC GLOBULIN (test code = 2240) 3.4 G/DL 1.9-3.7 CALC A/G RATIO (test code = 2234) 1.4 RATIO 1.0-2.6 BILIRUBIN, TOTAL (test code = 2207) 0.6 MG/DL See_Comment [Automated me ssage] The system which generated this result transmitted reference range: <=1.2. The reference range was not used to interpret this result as normal/abnormal. ALKALINE PHOSPHATASE (test code = 2204) 87 U/L 40-132 AST (test code = 2218) 15 U/L 9-40 ALT (test code = 2219) 16 U/L 5-40 LIPID [id number] 04:17:29* Test Item Value Reference Range Interpretation [...] SPECIMENS. FOR MOREINFORMATION, SEE CLIENT ANNOUNCEMENT AT [email or web address] CalcLDL-C RISK RATIO LDL/HDL (test code = 2238) (NOTE) RATIO <3.22 UNABLE TO ANDIE CULATE HEMOGLOBIN [id number] 04:17:22* Test Item Value Reference Range Interpretation Comme nts HEMOGLOBIN A1c (test code = 06531) 9.4 % 4.2-5.6 H [employer] GUIDELINES FOR HGB A1C: [...] CONSIDER ALTERNATE TESTING OR LABORATORY CONSULTATION. HEMOGLOBIN [id number] 00:00:00* Test Item Value Reference Range Interpretation Comme nts HEMOGLOBIN A1c (test code = 49440) 9.4 % COMPREHENSIVE METABOLIC [id number] 00:00:00* Test Item Value Reference Range Interpretation Comme nts GLUCOSE (test code = 2217) 152 MG/DL BUN (test code = 2208) 13 MG/DL CREATININE (test code = 2214) 0.59 MG/DL eGFR (2020 CKD-EPI) (test code = 81364) 108 ML/MIN/1.73 CALC BUN/CREAT (test code = [...] (test code = 2219) 16 U/L LIPID [id number] 00:00:00* Test Item Value Reference Range Interpretation Comme nts CHOLESTEROL (test code = 2210) 267 MG/DL TRIGLYCERIDES (test code = 2232) 613 MG/DL HDL CHOLESTEROL (test code = 2220) 36 MG/DL CALC LDL CHOL (test code = 2237) (NOTE) MG/DL RISK RATIO LDL/HDL (test cod e = 2238) (NOTE) RATIO [id number] 00:00:00* Test Item Value Reference Range Interpretation Comme nts TSH, THIRD GENERATION (test code = 2821) 7.810 UIU/ML MICROALBUMIN/CREATININE, RANDOM AND [id number] 00:00:00* Test Item Value Reference Range Interpretation Comme nts CREATININE, URINE, RANDOM (t est code = 2072) 63.0 MG/DL ALBUMIN, URINE, RANDOM (test code = 91494) 3.6 MG/DL CALC ALBUMIN/CREAT, RND (farrukh t code = 98185) 57 MG/G HEMOGLOBIN [id number] 00:00:00* Test Item Value Reference Range Interpretation Comme nts HEMOGLOBIN A1c (test code = 65500) 9.4 % COMPREHENSIVE METABOLIC [id number] 00:00:00* Test Item Value Reference Range Interpretation Comme nts GLUCOSE (test code = 2217) 152 MG/DL BUN (test code = 2208) 13 MG/DL CREATININE (test code = 2214) 0.59 MG/DL eGFR (2020 CKD-EPI) (test code = 95830) 108 ML/MIN/1.73 CALC BUN/CREAT (test code = [...] (test code = 2219) 16 U/L LIPID [id number] 00:00:00* Test Item Value Reference Range Interpretation Comme nts CHOLESTEROL (test code = 2210) 267 MG/DL TRIGLYCERIDES (test code = 2232) 613 MG/DL HDL CHOLESTEROL (test code = 2220) 36 MG/DL CALC LDL CHOL (test code = 2237) (NOTE) MG/DL RISK RATIO LDL/HDL (test cod e = 2238) (NOTE) RATIO [id number] 00:00:00* Test Item Value Reference Range Interpretation Comme nts TSH, THIRD GENERATION (test code = 2821) 7.810 UIU/ML MICROALBUMIN/CREATININE, RANDOM AND [id number] 00:00:00* Test Item Value Reference Range Interpretation Comme nts CREATININE, URINE, RANDOM (t est code = 2072) 63.0 MG/DL ALBUMIN, URINE, RANDOM (test code = 98823) 3.6 MG/DL CALC ALBUMIN/CREAT, RND (farrukh t code = 54226) 57 MG/G CULTURE, [id number] 00:00:00* Test Item Value Reference Range Interpretation Comme nts CULTURE, URINE (test code = 18521) SPECIMEN NUMBER: [id number] CULTURE, [id number] 00:00:00* Test Item Value Reference Range Interpretation Comme nts CULTURE, URINE (test code = 59287) SPECIMEN NUMBER: [id number] HEMOGLOBIN [id number] 00:00:00* Test Item Value Reference Range Interpretation Comme nts HEMOGLOBIN A1c (test code = 05333) 10.5 % LIPID [id number] 00:00:00* Test Item Value Reference Range Interpretation Comme nts CHOLESTEROL (test code = 2210) 217 MG/DL TRIGLYCERIDES (test code = 2232) 615 MG/DL HDL CHOLESTEROL (test code = 2220) 30 MG/DL CALC LDL CHOL (test code = 2237) (NOTE) MG/DL RISK RATIO LDL/HDL (test cod e = 2238) (NOTE) RATIO COMPREHENSIVE METABOLIC [id number] 00:00:00* Test Item Value Reference Range Interpretation Comme nts GLUCOSE (test code = 2217) 274 MG/DL BUN (test code = 2208) 13 MG/DL CREATININE (test code = 2214) 0.57 MG/DL eGFR AMER. (test cod e = 67307) 124 ML/MIN/1.73 eGFR NON- AMER. (test code = 74311) 107 ML/MIN/1.73 CALC BUN/CREAT (test code = [...] ALT (test code = 2219) 15 U/L [id number] 00:00:00* Test Item Value Reference Range Interpretation Comme nts TSH, THIRD GENERATION (test code = 2821) 11.900 UIU/ML MICROALBUMIN/CREATININE, RANDOM AND [id number] 00:00:00* Test Item Value Reference Range Interpretation Comme nts CREATININE, URINE, CONC. (te st code = 2072) 50.8 MG/DL ALBUMIN, URINE, RANDOM (test code = 82248) 11.2 MG/DL CALC ALBUMIN/CREAT, RND (farrukh t code = 55535) 220 MG/G URIC [id number] 00:00:00* Test Item Value Reference Range Interpretation Comme nts URIC ACID (test code = 2233) 6.4 MG/DL HEMOGLOBIN [id number] 00:00:00* Test Item Value Reference Range Interpretation Comme nts HEMOGLOBIN A1c (test code = 83066) 10.5 % LIPID [id number] 00:00:00* Test Item Value Reference Range Interpretation Comme nts CHOLESTEROL (test code = 2210) 217 MG/DL TRIGLYCERIDES (test code = 2232) 615 MG/DL HDL CHOLESTEROL (test code = 2220) 30 MG/DL CALC LDL CHOL (test code = 2237) (NOTE) MG/DL RISK RATIO LDL/HDL (test cod e = 2238) (NOTE) RATIO COMPREHENSIVE METABOLIC [id number] 00:00:00* Test Item Value Reference Range Interpretation Comme nts GLUCOSE (test code = 2217) 274 MG/DL BUN (test code = 2208) 13 MG/DL CREATININE (test code = 2214) 0.57 MG/DL eGFR AMER. (test cod e = 19739) 124 ML/MIN/1.73 eGFR NON- AMER. (test code = 77601) 107 ML/MIN/1.73 CALC BUN/CREAT (test code = [...] ALT (test code = 2219) 15 U/L [id number] 00:00:00* Test Item Value Reference Range Interpretation Comme nts TSH, THIRD GENERATION (test code = 2821) 11.900 UIU/ML MICROALBUMIN/CREATININE, RANDOM AND [id number] 00:00:00* Test Item Value Reference Range Interpretation Comme nts CREATININE, URINE, CONC. (te st code = 2072) 50.8 MG/DL ALBUMIN, URINE, RANDOM (test code = 73412) 11.2 MG/DL CALC ALBUMIN/CREAT, RND (farrukh t code = 48032) 220 MG/G URIC [id number] 00:00:00* Test Item Value Reference Range Interpretation Comme nts URIC ACID (test code = 2233) 6.4 MG/DL CULTURE, [id number] 00:00:00* Test Item Value Reference Range Interpretation Comme nts CULTURE, URINE (test code = 12303) SPECIMEN NUMBER: [id number] CULTURE, [id number] 00:00:00* Test Item Value Reference Range Interpretation Comme nts CULTURE, URINE (test code = 48850) SPECIMEN NUMBER: [id number] HEMOGLOBIN [id number] 00:00:00* Test Item Value Reference Range Interpretation Comme nts HEMOGLOBIN A1c (test code = 56172) 10.1 % URIC [id number] 00:00:00* Test Item Value Reference Range Interpretation Comme nts URIC ACID (test code = 2233) 1.5 MG/DL HEMOGLOBIN [id number] 00:00:00* Test Item Value Reference Range Interpretation Comme nts HEMOGLOBIN A1c (test code = 82474) 10.1 % URIC [id number] 00:00:00* Test Item Value Reference Range Interpretation Comme nts URIC ACID (test code = 2233) 1.5 MG/DL CULTURE, [id number] 00:00:00* Test Item Value Reference Range Interpretation Comme nts CULTURE, URINE (test code = 91713) SPECIMEN NUMBER: [id number] CULTURE, [id number] 00:00:00* Test Item Value Reference Range Interpretation Comme nts CULTURE, URINE (test code = 76639) SPECIMEN NUMBER: [id number] MICROALBUMIN/CREATININE, RANDOM AND [id number] 00:00:00* Test Item Value Reference Range Interpretation Comme nts CREATININE, URINE, CONC. (te st code = 2071) 120.8 MG/DL ALBUMIN, URINE, RANDOM (test code = 23990) 5.2 MG/DL CALC ALBUMIN/CREAT, RND (farrukh t code = 88156) 43 MG/G URINALYSIS W/REFLEX [id number] 00:00:00* Test Item Value Reference Range Interpretation [...] >50 /HPF EPITHELIAL CELLS (test code = 75509) /HPF BACTERIA (test code = 1515) 3+ CRYSTALS (test code = 1516) (NOTE) /HPF MICROALBUMIN/CREATININE, RANDOM AND [id number] 00:00:00* Test Item Value Reference Range Interpretation Comme nts CREATININE, URINE, CONC. (te st code = 207) 120.8 MG/DL ALBUMIN, URINE, RANDOM (test code = 58597) 5.2 MG/DL CALC ALBUMIN/CREAT, RND (farrukh t code = 13192) 43 MG/G URINALYSIS W/REFLEX [id number] 00:00:00* Test Item Value Reference Range Interpretation [...] >50 /HPF EPITHELIAL CELLS (test code = 56114) /HPF BACTERIA (test code = 1515) 3+ CRYSTALS (test code = 1516) (NOTE) /HPF CULTURE, [id number] 00:00:00* Test Item Value Reference Range Interpretation Comme nts CULTURE, URINE (test code = 67324) SPECIMEN NUMBER: [id number] CULTURE, [id number] 00:00:00* Test Item Value Reference Range Interpretation Comme nts CULTURE, URINE (test code = 75049) SPECIMEN NUMBER: [id number] COMPREHENSIVE METABOLIC [id number] 00:00:00* Test Item Value Reference Range Interpretation Comme nts GLUCOSE (test code = 2217) 274 MG/DL BUN (test code = 2208) 11 MG/DL CREATININE (test code = 2214) 0.59 MG/DL eGFR AMER. (test cod e = 07278) 124 ML/MIN/1.73 eGFR NON- AMER. (test code = 79863) 107 ML/MIN/1.73 CALC BUN/CREAT (test code = [...] (test code = 2219) 18 U/L LIPID [id number] 00:00:00* Test Item Value Reference Range Interpretation Comme nts CHOLESTEROL (test code = 2210) 258 MG/DL TRIGLYCERIDES (test code = 2232) 1054 MG/DL HDL CHOLESTEROL (test code = 2220) 30 MG/DL CALC LDL CHOL (test code = 2237) (NOTE) MG/DL RISK RATIO LDL/HDL (test cod e = 2238) (NOTE) RATIO HEMOGLOBIN [id number] 00:00:00* Test Item Value Reference Range Interpretation Comme nts HEMOGLOBIN A1c (test code = 49440) 9.1 % [id number] 00:00:00* Test Item Value Reference Range Interpretation Comme nts TSH, THIRD GENERATION (test code = 2821) 6.350 UIU/ML COMPREHENSIVE METABOLIC [id number] 00:00:00* Test Item Value Reference Range Interpretation Comme nts GLUCOSE (test code = 2217) 274 MG/DL BUN (test code = 2208) 11 MG/DL CREATININE (test code = 2214) 0.59 MG/DL eGFR AMER. (test cod e = 93863) 124 ML/MIN/1.73 eGFR NON- AMER. (test code = 24019) 107 ML/MIN/1.73 CALC BUN/CREAT (test code = [...] (test code = 2219) 18 U/L LIPID [id number] 00:00:00* Test Item Value Reference Range Interpretation Comme nts CHOLESTEROL (test code = 2210) 258 MG/DL TRIGLYCERIDES (test code = 2232) 1054 MG/DL HDL CHOLESTEROL (test code = 2220) 30 MG/DL CALC LDL CHOL (test code = 2237) (NOTE) MG/DL RISK RATIO LDL/HDL (test cod e = 2238) (NOTE) RATIO HEMOGLOBIN [id number] 00:00:00* Test Item Value Reference Range Interpretation Comme nts HEMOGLOBIN A1c (test code = 60169) 9.1 % [id number] 00:00:00* Test Item Value Reference Range Interpretation Comme nts TSH, THIRD GENERATION (test code = 2821) 6.350 UIU/ML HEMOGLOBIN [id number] 00:00:00* Test Item Value Reference Range Interpretation Comme nts HEMOGLOBIN A1c (test code = 89260) 8.9 % LIPID [id number] 00:00:00* Test Item Value Reference Range Interpretation Comme nts CHOLESTEROL (test code = 2210) 203 MG/DL TRIGLYCERIDES (test code = 2232) 720 MG/DL HDL CHOLESTEROL (test code = 2220) 29 MG/DL CALC LDL CHOL (test code = 2237) (NOTE) MG/DL RISK RATIO LDL/HDL (test cod e = 2238) (NOTE) RATIO URIC [id number] 00:00:00* Test Item Value Reference Range Interpretation Comme nts URIC ACID (test code = 2233) 7.8 MG/DL [id number] 00:00:00* Test Item Value Reference Range Interpretation Comme nts TSH, THIRD GENERATION (test code = 2821) 8.890 UIU/ML HEMOGLOBIN [id number] 00:00:00* Test Item Value Reference Range Interpretation Comme nts HEMOGLOBIN A1c (test code = 19833) 8.9 % LIPID [id number] 00:00:00* Test Item Value Reference Range Interpretation Comme nts CHOLESTEROL (test code = 2210) 203 MG/DL TRIGLYCERIDES (test code = 2232) 720 MG/DL HDL CHOLESTEROL (test code = 2220) 29 MG/DL CALC LDL CHOL (test code = 2237) (NOTE) MG/DL RISK RATIO LDL/HDL (test cod e = 2238) (NOTE) RATIO URIC [id number] 00:00:00* Test Item Value Reference Range Interpretation Comme nts URIC ACID (test code = 2233) 7.8 MG/DL [id number] 00:00:00* Test Item Value Reference Range Interpretation Comme nts TSH, THIRD GENERATION (test code = 2821) 8.890 UIU/ML LIPID [id number] 00:00:00* Test Item Value Reference Range Interpretation Comme nts CHOLESTEROL (test code = 2210) 235 MG/DL TRIGLYCERIDES (test code = 2232) 777 MG/DL HDL CHOLESTEROL (test code = 2220) 30 MG/DL CALC LDL CHOL (test code = 2237) NOTE MG/DL RISK RATIO LDL/HDL (test cod e = 2238) (NOTE) RATIO HEMOGLOBIN [id number] 00:00:00* Test Item Value Reference Range Interpretation Comme nts HEMOGLOBIN A1c (test code = 77132) 9.4 % COMPREHENSIVE METABOLIC [id number] 00:00:00* Test Item Value Reference Range Interpretation Comme nts GLUCOSE (test code = 2217) 333 MG/DL BUN (test code = 2208) 13 MG/DL CREATININE (test code = 2214) 0.64 MG/DL eGFR AMER. (test cod e = 45034) 121 ML/MIN/1.73 eGFR NON- AMER. (test code = 05168) 104 ML/MIN/1.73 CALC BUN/CREAT (test code = [...] = 2219) 14 U/L MICROALBUMIN/CREATININE, RANDOM AND [id number] 00:00:00* Test Item Value Reference Range Interpretation Comme nts CREATININE, URINE, CONC. (te st code = 2072) 51.8 MG/DL ALBUMIN, URINE, RANDOM (test code = 89968) 4.4 MG/DL CALC ALBUMIN/CREAT, RND (farrukh t code = 55752) 85 MG/G URIC [id number] 00:00:00* Test Item Value Reference Range Interpretation Comme nts URIC ACID (test code = 2233) 7.1 MG/DL LIPID [id number] 00:00:00* Test Item Value Reference Range Interpretation Comme nts CHOLESTEROL (test code = 2210) 235 MG/DL TRIGLYCERIDES (test code = 2232) 777 MG/DL HDL CHOLESTEROL (test code = 2220) 30 MG/DL CALC LDL CHOL (test code = 2237) NOTE MG/DL RISK RATIO LDL/HDL (test cod e = 2238) (NOTE) RATIO HEMOGLOBIN [id number] 00:00:00* Test Item Value Reference Range Interpretation Comme nts HEMOGLOBIN A1c (test code = 93706) 9.4 % COMPREHENSIVE METABOLIC [id number] 00:00:00* Test Item Value Reference Range Interpretation Comme nts GLUCOSE (test code = 2217) 333 MG/DL BUN (test code = 2208) 13 MG/DL CREATININE (test code = 2214) 0.64 MG/DL eGFR AMER. (test cod e = 21633) 121 ML/MIN/1.73 eGFR NON- AMER. (test code = 22770) 104 ML/MIN/1.73 CALC BUN/CREAT (test code = [...] = 2219) 14 U/L MICROALBUMIN/CREATININE, RANDOM AND [id number] 00:00:00* Test Item Value Reference Range Interpretation Comme nts CREATININE, URINE, CONC. (te st code = 2072) 51.8 MG/DL ALBUMIN, URINE, RANDOM (test code = 56440) 4.4 MG/DL CALC ALBUMIN/CREAT, RND (farrukh t code = 18412) 85 MG/G URIC [id number] 00:00:00* Test Item Value Reference Range Interpretation Comme nts URIC ACID (test code = 2233) 7.1 MG/DL HEMOGLOBIN [id number] 00:00:00* Test Item Value Reference Range Interpretation Comme nts HEMOGLOBIN A1c (test code = 92005) 10.1 % LIPID [id number] 00:00:00* Test Item Value Reference Range Interpretation Comme nts CHOLESTEROL (test code = 2210) 220 MG/DL TRIGLYCERIDES (test code = 2232) 701 MG/DL HDL CHOLESTEROL (test code = 2220) 27 MG/DL CALC LDL CHOL (test code = 2237) NOTE MG/DL RISK RATIO LDL/HDL (test cod e = 2238) (NOTE) RATIO [id number] 00:00:00* Test Item Value Reference Range Interpretation Comme nts TSH, THIRD GENERATION (test code = 2821) 37.700 UIU/ML HEMOGLOBIN [id number] 00:00:00* Test Item Value Reference Range Interpretation Comme nts HEMOGLOBIN A1c (test code = 01992) 10.1 % LIPID [id number] 00:00:00* Test Item Value Reference Range Interpretation Comme nts CHOLESTEROL (test code = 2210) 220 MG/DL TRIGLYCERIDES (test code = 2232) 701 MG/DL HDL CHOLESTEROL (test code = 2220) 27 MG/DL CALC LDL CHOL (test code = 2237) NOTE MG/DL RISK RATIO LDL/HDL (test cod e = 2238) (NOTE) RATIO [id number] 00:00:00* Test Item Value Reference Range Interpretation Comme nts TSH, THIRD GENERATION (test code = 2821) 37.700 UIU/ML CBC W/AUTO [id number] 00:00:00* Test Item Value Reference Range Interpretation [...] (test code = 1015) 287 K/UL LIPID [id number] 00:00:00* Test Item Value Reference Range Interpretation Comme nts CHOLESTEROL (test code = 2210) 214 MG/DL TRIGLYCERIDES (test code = 2232) 990 MG/DL HDL CHOLESTEROL (test code = 2220) 25 MG/DL CALC LDL CHOL (test code = 2237) NOTE MG/DL RISK RATIO LDL/HDL (test cod e = 2238) (NOTE) RATIO HEMOGLOBIN [id number] 00:00:00* Test Item Value Reference Range Interpretation Comme nts HEMOGLOBIN A1c (test code = 98158) 9.6 % COMPREHENSIVE METABOLIC [id number] 00:00:00* Test Item Value Reference Range Interpretation Comme nts GLUCOSE (test code = 2217) 368 MG/DL BUN (test code = 2208) 12 MG/DL CREATININE (test code = 2214) 0.64 MG/DL eGFR AMER. (test cod e = 53987) 121 ML/MIN/1.73 eGFR NON- AMER. (test code = 05265) 105 ML/MIN/1.73 CALC BUN/CREAT (test code = 2235) 19 RATIO SODIUM (test code = 223) 137 MEQ/L POTASSIUM (test code = 2228) 4.5 MEQ/L CHLORIDE (test code = 2215) 95 MEQ/L CARBON DIOXIDE (test code = 2206) 26 MEQ/L CALCIUM (test code = 2209) 9.6 MG/DL PROTEIN, TOTAL (test code = 222) 8.1 G/DL ALBUMIN (test code = 2201) 4.4 G/DL CALC GLOBULIN (test code = 2240) 3.7 G/DL CALC A/G RATIO (test code = 2234) 1.2 RATIO BILIRUBIN, TOTAL (test code = 2206) <0.2 MG/DL ALKALINE PHOSPHATASE (test code = 2203) 109 U/L AST (test code = 2217) 21 U/L ALT (test code = 221) 22 U/L [id number] 00:00:00* Test Item Value Reference Range Interpretation Comme [facility] TSH, THIRD GENERATION (test code = 2821) 7.820 UIU/ML URIC [id number] 00:00:00* Test Item Value Reference Range Interpretation Com[facility] URIC ACID (test code = 2233) 7.3 MG/DL CBC W/AUTO [id number] 00:00:00* Test Item Value Reference Range Interpretation [...] (test code = 1015) 287 K/UL LIPID [id number] 00:00:00* Test Item Value Reference Range Interpretation Comme nts CHOLESTEROL (test code = 2210) 214 MG/DL TRIGLYCERIDES (test code = 2232) 990 MG/DL HDL CHOLESTEROL (test code = 2220) 25 MG/DL CALC LDL CHOL (test code = 2237) NOTE MG/DL RISK RATIO LDL/HDL (test cod e = 2238) (NOTE) RATIO HEMOGLOBIN [id number] 00:00:00* Test Item Value Reference Range Interpretation Comme nts HEMOGLOBIN A1c (test code = 16137) 9.6 % COMPREHENSIVE METABOLIC [id number] 00:00:00* Test Item Value Reference Range Interpretation Comme nts GLUCOSE (test code = 2217) 368 MG/DL BUN (test code = 2208) 12 MG/DL CREATININE (test code = 2214) 0.64 MG/DL eGFR AMER. (test cod e = 31786) 121 ML/MIN/1.73 eGFR NON- AMER. (test code = 74914) 105 ML/MIN/1.73 CALC BUN/CREAT (test code = [...] ALT (test code = 2219) 22 U/L [id number] 00:00:00* Test Item Value Reference Range Interpretation Comme nts TSH, THIRD GENERATION (test code = 2821) 7.820 UIU/ML URIC [id number] 00:00:00* Test Item Value Reference Range Interpretation Comme nts URIC ACID (test code = 2233) 7.3 MG/DL URIC [id number] 00:00:00* Test Item Value Reference Range Interpretation Comme nts URIC ACID (test code = 2233) 9.4 MG/DL [id number] 00:00:00* Test Item Value Reference Range Interpretation Comme nts TSH (test code = 2821) 26.460 UIU/ML LIPID [id number] 00:00:00* Test Item Value Reference Range Interpretation Comme nts CHOLESTEROL (test code = 2210) 279 MG/DL TRIGLYCERIDES (test code = 2232) 883 MG/DL HDL CHOLESTEROL (test code = 2220) 33 MG/DL CALC LDL CHOL (test code = 2237) NOTE MG/DL RISK RATIO LDL/HDL (test cod e = 2238) (NOTE) RATIO CBC W/AUTO [id number] 00:00:00* Test Item Value Reference Range Interpretation [...] code = 1015) 306 K/UL COMPREHENSIVE METABOLIC [id number] 00:00:00* Test Item Value Reference Range Interpretation Comme nts GLUCOSE (test code = 2217) 201 MG/DL BUN (test code = 2208) 15 MG/DL CREATININE (test code = 2214) 0.55 MG/DL eGFR AMER. (test cod e = 05385) 129 ML/MIN/1.73 eGFR NON- AMER. (test code = 90128) 111 ML/MIN/1.73 CALC BUN/CREAT (test code = [...] (test code = 2219) 42 U/L HEMOGLOBIN [id number] 00:00:00* Test Item Value Reference Range Interpretation Comme nts HEMOGLOBIN A1c (test code = 92547) 8.6 % URIC [id number] 00:00:00* Test Item Value Reference Range Interpretation Comme nts URIC ACID (test code = 2233) 9.4 MG/DL [id number] 00:00:00* Test Item Value Reference Range Interpretation Comme nts TSH (test code = 2821) 26.460 UIU/ML LIPID [id number] 00:00:00* Test Item Value Reference Range Interpretation Comme nts CHOLESTEROL (test code = 2210) 279 MG/DL TRIGLYCERIDES (test code = 2232) 883 MG/DL HDL CHOLESTEROL (test code = 2220) 33 MG/DL CALC LDL CHOL (test code = 2237) NOTE MG/DL RISK RATIO LDL/HDL (test cod e = 2238) (NOTE) RATIO CBC W/AUTO [id number] 00:00:00* Test Item Value Reference Range Interpretation [...] code = 1015) 306 K/UL COMPREHENSIVE METABOLIC [id number] 00:00:00* Test Item Value Reference Range Interpretation Comme nts GLUCOSE (test code = 2217) 201 MG/DL BUN (test code = 2208) 15 MG/DL CREATININE (test code = 2214) 0.55 MG/DL eGFR AMER. (test cod e = 05439) 129 ML/MIN/1.73 eGFR NON- AMER. (test code = 03509) 111 ML/MIN/1.73 CALC BUN/CREAT (test code = [...] (test code = 2219) 42 U/L HEMOGLOBIN [id number] 00:00:00* Test Item Value Reference Range Interpretation Comme nts HEMOGLOBIN A1c (test code = 40542) 8.6 %"
[2025-01-08] MEDS ORDERED: KETOROLAC 30 MG/ML INJ ONE (20:32)
[2025-01-08 20:51] LABS: Urine Crystals Unidentified Few /HPF (None Seen); Urine Culture Reflex Order REFLEXED; Urine Microscopic Reflex YN ORDER UMIC; Urine WBC Clump Occasional /HPF (None Seen); Urine Yeast (Budding) Occasional /HPF (None Seen)
[2025-01-08] MEDS ORDERED: levoFLOXacin 250 MG TAB ONE (21:13)
--- NOTE | 2025-01-08 21:15 | EDPHYS ---
Physician Documentation [facility] Name: Rigo Wells Age: 54 yrs Sex: Female : 1970 Arrival Date: 01/08/2025 Time: 19:45 Bed 5 Private MD: ED Physician Julia Oshea HPI: 01/08 20:21 This 54 yrs old Female presents to ER via Ambulatory with complaints of Low sp3 Back Pain. 20:21 54-year-old female with history of diabetes, hypertension, prior UTIs now presents with sp3 low back pain rating to the right lower extremity. Patient states is worse with motion. She states she has had this before when she had a UTI. No prior history of lumbar radiculopathy noted. No loss of bowel or bladder function, motor weakness or any other neurological complaints. Negative for trauma. ROS otherwise negative.. 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 - Infectious Disease History:: Denies. - Social history:: Smoking status: Patient denies any tobacco usage or history of. ROS: 20:22 Constitutional: Negative for fever, chills, and weight loss, Eyes: Negative for injury, sp3 pain, redness, and discharge, Neck: Negative for injury, pain, and swelling, Cardiovascular: Negative for chest pain, palpitations, and edema, Respiratory: Negative for shortness of breath, cough, wheezing, and pleuritic chest pain, Abdomen/GI: Negative for abdominal pain, nausea, vomiting, diarrhea, and constipation, Skin: Negative for injury, rash, and discoloration, Neuro: Negative for headache, weakness, numbness, tingling, and seizure, 20:22 All other systems are negative, Exam: 20:22 Constitutional: This is a well developed, well nourished patient who is awake, alert, sp3 and in no acute distress. Head/Face: Normocephalic, atraumatic. Eyes: Pupils equal round and reactive to light, extra-ocular motions intact. Lids and lashes normal. Conjunctiva and sclera are non-icteric and not injected. Cornea within normal limits. Periorbital areas with no swelling, redness, or edema. Neck: Trachea midline, no thyromegaly or masses palpated, and no cervical lymphadenopathy. Supple, full range of motion without nuchal rigidity, or vertebral point tenderness. No Meningismus. Chest/axilla: Normal chest wall appearance and motion. Nontender with no deformity. No lesions are appreciated. Cardiovascular: Regular rate and rhythm with a normal S1 and S2. No gallops, murmurs, or rubs. Normal PMI, no JVD. No pulse deficits. Respiratory: Lungs have equal breath sounds bilaterally, clear to auscultation and percussion. No rales, rhonchi or wheezes noted. No increased work of breathing, no retractions or nasal flaring. Abdomen/GI: Soft, non-tender, with normal bowel sounds. No distension or tympany. No guarding or rebound. No evidence of tenderness throughout. Back: No spinal tenderness. No costovertebral tenderness. Full range of motion. Skin: Warm, dry with normal turgor. Normal color with no rashes, no lesions, and no evidence of cellulitis. Neuro: Awake and alert, GCS 15, oriented to person, place, time, and situation. Cranial nerves II-XII grossly intact. Motor strength 5/5 in all extremities. Sensory grossly intact. Cerebellar exam normal. Normal gait. Psych: Awake, alert, with orientation to person, place and time. Behavior, mood, and affect are within normal limits. 20:22 Musculoskeletal/extremity: Mild pain on straight leg raise on the right side. No pain to palpation of the lower back or other musculature.. Vital Signs: 20:06 BP 149 / 89; Pulse 92; Resp 17; Temp 99.6(O); Pulse Ox 99% on R/A; Weight 59.42 kg; ha1 Height 5 ft. 0 in. ; Pain 10/10; 21:05 BP 129 / 90; Pulse 80; Resp 18; Pulse Ox 99% ; cp4 21:22 BP 148 / 92; Pulse 81; Resp 18; Temp 97.1; Pulse Ox 99% ; br2 20:06 Body Mass Index 25.58 (59.42 kg, 152.4 cm) ha1 20:06 Pain Scale: Adult ha1 MDM: 20:01 Medical Screening Exam initiated sp3 20:22 Data reviewed: vital signs, nurses notes, old medical records, lab test result(s), sp3 radiologic studies. ED course: 54-year-old female with low back pain and right lower extremity radiculopathy. Differential diagnosis includes sciatica, lumbar radiculopathy, UTI, pyelonephritis, muscular strain, among others. Workup will include lumbosacral x-rays, urine analysis and treatment with ketorolac IM. Vital signs are normal patient is in no acute distress resting comfortably. I am not highly suspicious for sepsis, shock, aortic pathology, GI pathology, or any other critical process at this time.. 21:13 ED course: X-rays demonstrate no significant abnormality. UA demonstrates UTI. Vital sp3 signs are normal. Patient is in no acute distress. Will place on Levaquin with first dose now in the ED and follow-up to PCP. Urine culture pending.. 01/08 20:21 Order name: UA Rfx Zachariah Cult if indicated; Complete Time: 20:53 sp3 01/08 20:55 Order name: Urine Culture EDMS 01/08 20:21 Order name: Lumbar Spine (3 Views) XRAY; Complete Time: 21:22 sp3 Administered Medications: 20:38 Drug: Ketorolac IM 30 mg IM once Route: IM; Site: right deltoid; hm5 21:08 Follow up: Response: No adverse reaction cp4 21:36 Drug: LevOfloxacin PO 500 mg PO once Route: PO; cp4 21:36 Follow up: Response: No adverse reaction cp4 Disposition Summary: 01/08/25 21:14 Discharge Ordered Notes: Location: Home sp3 Condition: Stable sp3 Diagnosis - Urinary tract infection, low back pain sp3 Followup: sp3 - With: Private Physician - When: Upon discharge from the Emergency Department - Reason: Continuance of care Discharge Instructions: - Discharge Summary Sheet sp3 - Urinary Tract Infection, Adult sp3 Forms: - Medication Reconciliation Form sp3 - Antibiotic Education sp3 - Prescription Opioid Use sp3 - Patient Portal Instructions sp3 - Leadership Thank You Letter sp3 Prescriptions: - Tramadol 50 mg Oral Tablet - take 1 tablet ORAL route every 8 hours as needed; 12 tablet; Refills: 0, sp3 Product Selection Permitted - levofloxacin 500 mg Oral tablet - take 1 tablet ORAL route once daily for 7 days; 7 tablet; Refills: 0, Product sp3 Selection Permitted Signatures: Dispatcher [employer] Julia Mcdonough MD MD sp3 Sagrario Sprague, RN RN 1 Deepti Lorenzo 4 Antonina Mistry RN RN hm5
--- NOTE | 2025-01-08 21:15 | ER ---
Nurse's Notes [facility] Name: Rigo Wells Age: 54 yrs Sex: Female : 1970 Arrival Date: 01/08/2025 Time: 19:45 Bed 5 Private MD: Diagnosis: Urinary tract infection, low back pain Presentation: 01/08 20:06 Chief complaint: Patient states: right sided back pain that radiates to the right leg ha1 for the past 4 days. Coronavirus screen: Client denies travel out of the [place] in the last 14 days. At this time, the client does not indicate any symptoms associated with coronavirus-19. Ebola Screen: No symptoms or risks identified at this time. Initial Sepsis Screen: Does the patient meet any 2 criteria? No. Patient's initial sepsis screen is negative. Does the patient have a suspected source of infection? No. Patient's initial sepsis screen is negative. Risk Assessment: Do you want to hurt yourself or someone else? Patient reports no desire to harm self or others. Onset of symptoms was January 04, 2025. 20:06 Method Of Arrival: Ambulatory ha1 20:06 Acuity: JEVON 3 ha1 Triage Assessment: 20:09 General: Appears uncomfortable, Behavior is calm, cooperative, appropriate for age. ha1 Pain: Complains of pain in right low back Pain radiates to right leg Pain currently is 10 out of 10 on a pain scale. Neuro: Level of Consciousness is awake, alert, obeys commands, Oriented to person, place, time, situation, Appropriate for age. Cardiovascular: Patient's skin is warm and dry. Respiratory: Airway is patent Respiratory effort is even, unlabored, Respiratory pattern is regular, symmetrical. Musculoskeletal: Reports pain in right lower back Pain is 10 out of 10 on a pain scale. 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 - Infectious Disease History:: Denies. - Social history:: Smoking status: Patient denies any tobacco usage or history of. Screenin:13 [facility] ED Fall Risk Assessment (Adult) History of falling in the last 3 months, hm5 including since admission No falls in past 3 months (0 pts) Confusion or Disorientation No (0 pts) Intoxicated or Sedated No (0 pts) Impaired Gait No (0 pts) Mobility Assist Device Used No (0 pt) Altered Elimination No (0 pt) Score/Fall Risk Level 0 - 2 = Low Risk. Abuse screen: Denies threats or abuse. Denies injuries from another. Nutritional screening: No deficits noted. Tuberculosis screening: No symptoms or risk factors identified. Assessment: 20:12 General: Appears uncomfortable, well groomed, well developed, well nourished, Behavior hm5 is calm, cooperative. Pain: Complains of pain in buttocks and right lower back and right leg and back and right low back. Neuro: No deficits noted. Cardiovascular: No deficits noted. Respiratory: No deficits noted. GI: No deficits noted. No signs and/or symptoms were reported involving the gastrointestinal system. : No deficits noted. No signs and/or symptoms were reported regarding the genitourinary system. EENT: No deficits noted. No signs and/or symptoms were reported regarding the EENT system. Derm: No deficits noted. No signs and/or symptoms reported regarding the dermatologic system. Musculoskeletal: Reports pain in buttocks and right lower back radiates down right leg. Vital Signs: 20:06 BP 149 / 89; Pulse 92; Resp 17; Temp 99.6(O); Pulse Ox 99% on R/A; Weight 59.42 kg; ha1 Height 5 ft. 0 in. ; Pain 10/10; 21:05 BP 129 / 90; Pulse 80; Resp 18; Pulse Ox 99% ; cp4 21:22 BP 148 / 92; Pulse 81; Resp 18; Temp 97.1; Pulse Ox 99% ; br2 20:06 Body Mass Index 25.58 (59.42 kg, 152.4 cm) ha1 20:06 Pain Scale: Adult ha1 ED Course: 19:49 Patient arrived in ED. jj6 19:52 Julia Oshea MD is Attending Physician. sp3 20:03 Antonina Mistry, GEENA is Primary Nurse. hm5 20:09 Triage completed. ha1 20:13 Arm band placed on left wrist. hm5 20:14 Patient has correct armband on for positive identification. Bed in low position. Call [facility] light in reach. Side rails up X 1. Provided Education on: plan of care. 20:14 No provider procedures requiring assistance completed. 5 20:38 UA Rfx Zachariah Cult if indicated Sent. 5 21:11 Lumbar Spine (3 Views) XRAY In Process Unspecified. EDMS 21:25 Patient did not have IV access during this emergency room visit. br2 Administered Medications: 20:38 Drug: Ketorolac IM 30 mg IM once Route: IM; Site: right deltoid; 5 21:08 Follow up: Response: No adverse reaction cp4 21:36 Drug: LevOfloxacin PO 500 mg PO once Route: PO; cp4 21:36 Follow up: Response: No adverse reaction cp4 Medication: 20:14 VIS not applicable for this client. [facility] Outcome: 21:14 Discharge ordered by MD. sp3 21:24 Discharged to home ambulatory, br2 21:24 Condition: stable 21:24 Discharge instructions given to patient, Instructed on discharge instructions, follow up and referral plans. Demonstrated understanding of instructions, follow-up care, medications, Prescriptions given X 2, 21:50 Patient left the ED. [facility] Signatures: Dispatcher [employer] EDIN Julia Oshea MD MD sp3 Isha Scott jj6 Sagrario Sprague RN RN ha1 Deepti Lorenzo cp4 Lorelei Carrera RN RN br2 Antonina Mistry RN RN 5
--- NOTE | 2025-01-08 21:19 | RAD REPORT ---
EXAMINATION: Lumbar Spine 3 Views CLINICAL INDICATION: Female, 54 years old. RADICULOPATHY TECHNIQUE: AP, lateral, focused lateral lumbosacral views of the lumbar spine were obtained. [id number]. COMPARISON: No prior exam. FINDINGS: ALIGNMENT: Grade 1 anterolisthesis of L5 on S1. BONES: Vertebral bodies are normal in height. No aggressive osseous lesions. DEGENERATIVE: Disc heights are maintained. Facet degenerative changes are present L5-S1. SOFT TISSUE: No soft tissue abnormalities. IMPRESSION: No acute lumbar spine abnormality. Mild degenerative disc disease as noted above.
[2025-01-09 04:58] VITALS: O2SAT 99
[2025-01-09 05:07] VITALS: BP 148/92; TEMP 97.1
== END 2025-01-08 21:50 ==
LOC: ER 19:45
DX: N39.0 Urinary tract infection, site not specified (principal)
CPT/HCPCS: 72100; 81001; 87086; 87088; 96372; 99284